=== PATIENT | male | born 1960 | race Caucasian/White ===

== ENCOUNTER 2017-08-20 13:13 | Emergency (ER) | payer MEDICARE, MEDICAID ==
--- NOTE | 2017-08-20 13:28 | ER Document Report ---
ED Medical Screen (RME) - General Chief Complaint: Shortness Of Breath Stated Complaint: SHORTNESS OF BREATH Time Seen by Provider: 08/20/17 13:24 Mode of Arrival: Wheelchair Information source: Patient TRAVEL OUTSIDE OF THE [place] 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 - Related Data Allergies/Adverse Reactions: acetaminophen [From Vicodin] Allergy (Verified 08/20/17 13:17) clopidogrel [From Plavix] Allergy (Verified 08/20/17 13:17) coconut Allergy (Verified 08/20/17 13:17) hydrocodone [From Vicodin] Allergy (Verified 08/20/17 13:17) strawberry Allergy (Verified 08/20/17 13:17) Sulfa (Sulfonamide Antibiotics) Allergy (Verified 08/20/17 13:17) Past Medical History Renal/ Medical History: Denies: Hx Peritoneal Dialysis Physical Exam - Vital signs Vitals: Temp Pulse Resp BP Pulse Ox 97.6 F 69 18 127/73 H 97 08/20/17 13:18 08/20/17 13:18 08/20/17 13:18 08/20/17 13:18 08/20/17 13:18 Course - Vital Signs Vital signs: Temp Pulse Resp BP Pulse Ox 97.6 F 69 18 127/73 H 97 08/20/17 13:18 08/20/17 13:18 08/20/17 13:18 08/20/17 13:18 08/20/17 13:18
[2017-08-20 14:12] LABS: HEMATOCRIT 37.9 % (37.9-51.0); HEMOGLOBIN 12.9 g/dL (13.5-17.0); HGB HCT DIFFERENCE 0.8; MEAN CORPUSCULAR HEMOGLOBIN 30.2 pg (27.0-33.4); MEAN CORPUSCULAR HGB CONC 33.9 g/dL (32.0-36.0); MEAN CORPUSCULAR VOLUME 89 fl (80-97); PROTHROMBIN TIME 13.2 SEC (11.4-15.4); RED BLOOD COUNT 4.26 10^6/uL (4.35-5.55); RED CELL DISTRIBUTION WIDTH 15.2 % (11.5-14.0); WHITE BLOOD COUNT 8.3 10^3/uL (4.0-10.5)
[2017-08-20 14:13] LABS: PARTIAL THROMBOPLASTIN TIME 26.9 SEC (23.5-35.8)
[2017-08-20 14:27] LABS: ALANINE AMINOTRANSFERASE 44 U/L (21-72); ALBUMIN 4.4 g/dL (3.5-5.0); ALKALINE PHOSPHATASE 109 U/L (38-126); ANION GAP 14 (5-19); ASPARTATE AMINO TRANSFERASE 24 U/L (17-59); BILIRUBIN,DIRECT 0.4 mg/dL (0.0-0.4); BILIRUBIN,TOTAL 0.4 mg/dL (0.2-1.3); BLOOD UREA NITROGEN 12 mg/dL (7-20); CALCIUM 10.2 mg/dL (8.4-10.2); CARBON DIOXIDE 24 mmol/L (22-30); CHLORIDE 104 mmol/L (98-107); CREATINE KINASE 43 U/L (55-170); CREATININE RESULT 0.74 mg/dL (0.52-1.25); GLUCOSE 97 mg/dL (75-110); POTASSIUM 5.2 mmol/L (3.6-5.0); SODIUM 142.2 mmol/L (137-145); TOTAL PROTEIN 7.5 g/dL (6.3-8.2)
[2017-08-20 14:37] LABS: CREATINE KINASE MB 0.47 ng/mL (<4.55)
[2017-08-20 14:38] LABS: TROPONIN I < 0.012 ng/mL
--- NOTE | 2017-08-20 14:40 | RADIOLOGY REPORT (SQ) ---
EXAM DESCRIPTION: CHEST PA/LAT COMPLETED DATE/TIME: 08/20/2017 2:09 pm REASON FOR STUDY: cp COMPARISON: None. EXAM PARAMETERS: NUMBER OF VIEWS: two views TECHNIQUE: Digital Frontal and Lateral radiographic views of the chest acquired. RADIATION DOSE: NA LIMITATIONS: none FINDINGS: LUNGS AND PLEURA: No opacities, masses or pneumothorax. No pleural effusion. MEDIASTINUM AND HILAR STRUCTURES: No masses or contour abnormalities. HEART AND VASCULAR STRUCTURES: Heart normal size. No evidence for failure. Curvilinear calcificatio n along the right heart border likely the right coronary artery with multiple stents BONES: No acute findings. HARDWARE: None in the chest. OTHER: No other significant finding. IMPRESSION: No acute infiltrates or pleural effusions. Radiodense curvilinear structures along the right heart border likely right coronary stents TECHNICAL DOCUMENTATION: JOB ID: [id number] [employer]- All Rights Reserved
[2017-08-20 14:42] LABS: BAND NEUTROPHILS % (MANUAL) 1 % (3-5); BASOPHILS % (MANUAL) 1 % (0-2); EOSINOPHILS % (MANUAL) 5 % (0-6); LYMPHOCYTES % (MANUAL) 25 % (13-45); TOTAL CELLS COUNTED 100
[2017-08-20 14:43] LABS: POLYCHROMASIA SLIGHT
--- NOTE | 2017-08-20 14:54 | EKG REPORT ---
SEVERITY:- NORMAL ECG - SINUS RHYTHM : Confirmed by: Hai Calhoun MD 20-Aug-2017 14:53:59
--- NOTE | 2017-08-20 15:53 | ER Document Report ---
ED Respiratory Problem - General Chief Complaint: Shortness Of Breath Stated Complaint: SHORTNESS OF BREATH Time Seen by Provider: 08/20/17 13:24 Mode of Arrival: Wheelchair Information source: Patient TRAVEL OUTSIDE OF THE [place] IN LAST 30 DAYS: No - HPI Patient complains to provider of: Short of breath Onset: Yesterday - MORNING, UPON AWAKENING Duration: Intermittent episodes Quality of pain: No pain Severity: Mild Context: Hx COPD. denies: DVT, Malignancy, Recent cardiac event, Recent foreign travel, Recent long distance trvl, Recent immobilization, Recent surgery Short of Breath: Mild Cough: Productive Sputum amount: Small Sputum color: Yellow Sputum consistency: Mucoid Associated symptoms: Cough, Short of breath. denies: Ankle/leg swelling, Chest pain/discomfort, Chills, Fever, Hurts to breathe, Leg/calf/joint pain, Orthopnea Similar symptoms previously: Yes - NOT RECENT Recently seen / treated by doctor: No - Related Data Allergies/Adverse Reactions: acetaminophen [From Vicodin] Allergy (Verified 08/20/17 13:17) clopidogrel [From Plavix] Allergy (Verified 08/20/17 13:17) coconut Allergy (Verified 08/20/17 13:17) hydrocodone [From Vicodin] Allergy (Verified 08/20/17 13:17) strawberry Allergy (Verified 08/20/17 13:17) Sulfa (Sulfonamide Antibiotics) Allergy (Verified 08/20/17 13:17) Past Medical History - General Information source: Patient - Social History Smoking Status: Current Every Day Smoker Cigarette use (# per day): Yes - 1/2 Chew tobacco use (# tins/day): No Frequency of alcohol use: Occasional Drug Abuse: None Lives with: Spouse/Significant other Family History: None Patient has suicidal ideation: No Patient has homicidal ideation: No - Past Medical History Cardiac Medical History: Reports: Hx Coronary Artery Disease, Hx Heart Attack Pulmonary Medical History: Reports: Hx COPD Neurological Medical History: Reports: None Endocrine Medical History: Reports: Hx Diabetes Mellitus Type 2 Renal/ Medical History: Reports: None. Denies: Hx Peritoneal Dialysis Malignancy Medical History: Reports None GI Medical History: Reports: Other - KNOWN GALLBLADDER DISEASE, NEEDS ELECTIVE SURGERY Musculoskeltal Medical History: Reports Hx Arthritis Skin Medical History: Reports None Psychiatric Medical History: Reports: None Past Surgical History: Reports: Hx Appendectomy, Hx Cardiac Catheterization - 11 stents, Hx Coronary Stent - x 11, Hx Orthopedic Surgery - carpal tunnel release right hand, Hx Tonsillectomy - Immunizations Hx Diphtheria, Pertussis, Tetanus Vaccination: No Review of Systems - Review of Systems Constitutional: No symptoms reported EENT: No symptoms reported Cardiovascular: No symptoms reported Respiratory: See HPI Gastrointestinal: No symptoms reported Male Genitourinary: No symptoms reported Musculoskeletal: No symptoms reported Skin: No symptoms reported Neurological/Psychological: No symptoms reported Physical Exam - Vital signs Vitals: Temp Pulse Resp BP Pulse Ox 97.6 F 69 18 127/73 H 97 08/20/17 13:18 08/20/17 13:18 08/20/17 13:18 08/20/17 13:18 08/20/17 13:18 Interpretation: Normal. No: Tachycardic, Hypoxic, Tachypneic - General General appearance: Appears well, Alert In distress: None - HEENT Head: Normocephalic Eyes: Normal. No: Pale conjunctiva Conjunctiva: Normal Ears: Normal Nasal: Normal Mouth/Lips: Normal Mucous membranes: Normal Pharynx: Normal Neck: Normal - Respiratory Respiratory status: No respiratory distress Breath sounds: Normal - Cardiovascular Rhythm: Regular Heart sounds: Normal auscultation Murmur: No - Abdominal Inspection: Obese Bowel sounds: Normal Tenderness: Nontender - Extremities General upper extremity: Normal inspection General lower extremity: Normal inspection. No: Edema - Neurological Neuro grossly intact: Yes Cognition: Normal Orientation: AAOx4 - Psychological Associated symptoms: Normal affect, Normal mood - Skin Skin Temperature: Warm Skin Moisture: Dry Skin Color: Normal Skin Turgor: Elastic Course - Vital Signs Vital signs: Temp Pulse Resp BP Pulse Ox 97.6 F 69 20 121/71 98 08/20/17 13:18 08/20/17 13:18 08/20/17 19:01 08/20/17 19:01 08/20/17 19:01 - Laboratory Result Diagrams: 08/20/17 13:45 08/20/17 13:45 Laboratory results interpreted by me: 08/20/17 08/20/17 13:45 13:45 RBC 4.26 L Hgb 12.9 L RDW 15.2 H Band Neutrophils % 1 L Potassium 5.2 H Creatine Kinase 43 L Discharge - Discharge Clinical Impression: Acute bronchitis Qualifiers: Bronchitis organism: unspecified organism Qualified Code(s): J20.9 - Acute bronchitis, unspecified Condition: Stable Disposition: HOME, SELF-CARE Instructions: Bronchitis ([facility]), Inhaled Bronchodilators ([facility]), Corticosteroid Medication ([facility]), Chronic Obstructive Lung Disease ([facility]) Additional Instructions: REST, DRINK PLENTY OF FLUIDS. STOP SMOKING ! MEDS DIRECTED. (BEGIN PREDNISONE TOMORROW). FOLLOW UP WITH PRIMARY CARE PROVIDER OF YOUR CHOICE. RETURN TO E.R. IF PROBLEMS. Prescriptions: Albuterol Sulfate [Proair HFA] 8.5 gm IH Q4HP PRN #2 [id number] PRN Reason: For Wheezing Doxycycline Monohydrate 100 mg PO BID #20 tablet Prednisone [Deltasone 10 mg Tablet] 10 mg PO ASDIR PRN #21 tablet PRN Reason: Forms: Smoking Cessation Education Referrals: LAKISHA LEÓN MD [ACTIVE STAFF] - Follow up as needed SHANTI HARTMAN MD [ACTIVE STAFF] - Follow up as needed JOHN WALTERS MD [[facility]] - Follow up as needed
--- NOTE | 2017-08-20 18:03 | RADIOLOGY REPORT (SQ) ---
EXAM DESCRIPTION: CTA CHEST COMPLETED DATE/TIME: 08/20/2017 5:42 pm REASON FOR STUDY: DYSPNEA, HYPOTENSION COMPARISON: None. TECHNIQUE: CT scan of the chest performed using helical scanning technique with dynamic intravenous contrast injection. Images reviewed with lung, soft tissue and bone windows. Reconstructed coronal and sagittal MPR images reviewed. Additional 3 dimensional post-processing performed to develop Maximal Intensity Projection images (NM P). All images stored on PACS. All CT scanners at this facility use dose modulation, iterative reconstruction, and/or weight based d osing when appropriate to reduce radiation dose to as low as reasonably achievable (ALARA). [facility]: Dose Right [facility]: CareDose [facility]: Dose Right [facility]: Teradose 4D [facility]: TabbedOut CONTRAST TYPE AND DOSE: contrast/concentration: Isovue 370.00 mg/ml; Total Contrast Delivered: 82.0 ml; Total Saline Delivered: 99.1 ml Contrast bolus optimized for the pulmonary arteries. Not diagnostic for the aorta. RENAL FUNCTION: GFR > 60. RADIATION DOSE: Up-to-date CT equipment and radiation dose reduction techniques were employed. CTDIv ol: 19.8 - 22.6 mGy. DLP: 844 mGy-cm. . LIMITATIONS: None. FINDINGS: LUNGS AND PLEURA: No masses, infiltrates, pneumothorax. No pleural effusions, calcificati ons. AORTA AND GREAT VESSELS: No aneurysm. Contrast bolus not optimized for the aorta. HEART: No pericardial effusion. Heavy coronary artery calcifications. PULMONARY ARTERIES: No emboli visualized in the main pulmonary arteries or the segmental branches. HILAR AND MEDIASTINAL STRUCTURES: No identified masses or abnormal nodes. HARDWARE: None in the chest. UPPER ABDOMEN: No significant findings. Limited exam. THYROID AND OTHER SOFT TISSUES: No masses. No adenopathy. BONES: No acute or significant finding. 3D MIPS: Confirm above findings. OTHER: No other significant finding. IMPRESSION: NO PULMONARY EMBOLI. Heavy coronary artery calcifications. COMMENT: Quality ID # [id number]: Final reports with documentation of one or more dose reduction techniques (e.g., Automated exposure control, adjustment of the mA and/or kV according to patient size, use of iterative reconstruction technique) TECHNICAL DOCUMENTATION: JOB ID: [id number] [employer]- All Rights Reserved
[2017-08-20] MEDS ORDERED: PREDNISONE 20 MG TABLET PO ONE (19:34)
[2017-08-20 19:56] VITALS: BP 114/69
== END 2017-08-20 19:50 | disposition home or self-care (01) ==
LOC: ER 13:13
DX: J20.9 Acute bronchitis, unspecified (principal); R07.9 Chest pain, unspecified; E66.9 Obesity, unspecified; J44.9 Chronic obstructive pulmonary disease, unspecified; F17.210 Nicotine dependence, cigarettes, uncomplicated; E11.9 Type 2 diabetes mellitus without complications; I25.10 Atherosclerotic heart disease of native coronary artery without angina pectoris; Z88.6 Allergy status to analgesic agent; Z88.2 Allergy status to sulfonamides; I25.2 Old myocardial infarction
CPT/HCPCS: 93005; 99285; 36415; 82553; 82550; 85025; 85610; 85730; 80053; 84484; 83880; 71020; 71275; 93010; A9270; J7512

== ENCOUNTER 2017-12-12 07:29 | Outpatient (CLI) | payer MEDICARE, MEDICAID ==
[~2017-12-12 07:29] MED LIST: IRON DEXTRAN COMPLEX IV PRN; NORMAL SALINE IV PRN
[2017-12-12] MEDS ORDERED: IRON DEXTRAN COMPLEX 25 MG in SYRINGE, DISPOSABLE, 1 EACH IV PRN (08:00)
[2017-12-12] MEDS ORDERED: FAMOTIDINE INJ/PF 20 MG/2 ML SDV IV PRN (08:00)
[2017-12-12] MEDS ORDERED: NORMAL SALINE 250 ML IV PRN (08:00)
[2017-12-12] MEDS ORDERED: METHYLPREDNISOLONE INJ 125 MG/2 ML SDV IV PRN (08:00)
[2017-12-12] MEDS ORDERED: ACETAMINOPHEN 325 MG TABLET PO PRN (08:00)
[2017-12-12] MEDS ORDERED: DIPHENHYDRAMINE HCL 50 MG/ML VIAL IV PRN (08:00)
[2017-12-12 09:39] VITALS: BP 114/61
== END 2017-12-12 14:23 | disposition home or self-care (01) ==
LOC: II 07:29 → 5TH 07:33 → II 14:23
PROVIDERS: ATTEND Internal Medicine Medical Oncology
PROC: 3E033GC Introduction of Other Therapeutic Substance into Peripheral Vein, Percutaneous Approach (ICD-10-PCS; principal; 2017-12-12)
PROC: 3E0333Z Introduction of Anti-inflammatory into Peripheral Vein, Percutaneous Approach (ICD-10-PCS; 2017-12-12)
DX: E61.1 Iron deficiency (principal); D64.9 Anemia, unspecified
CPT/HCPCS: 96365; 96366; 96374; 96375; J1200; J1750 ×2; J2930; J7030; J3490

== ENCOUNTER 2018-01-14 03:14 | Emergency (ER) | payer MEDICARE, MEDICAID ==
[2018-01-14 03:22] VITALS: BP 112/87
[2018-01-14] MEDS ORDERED: BUPIVACAINE HCL 0.5 % INJ/PF 30 ML SDV INJ ONE (03:37)
--- NOTE | 2018-01-14 03:38 | ER Document Report ---
ED General - General Chief Complaint: Toothache Stated Complaint: MOUTH, FACE PAIN Time Seen by Provider: 01/14/18 03:37 Mode of Arrival: Ambulatory Information source: Patient Notes: 57-year-old male history of extremely poor dentition presents with complaints of dental pain. Patient denies any fevers or chills denies any swelling of his face. Patient notes he has had dental abscesses before. He denies any difficulty swallowing or breathing patient notes symptoms have been worsening over the past 3 days TRAVEL OUTSIDE OF THE [place] IN LAST 30 DAYS: No - HPI Onset: Other - 3 day duration Onset/Duration: Persistent Quality of pain: Achy Severity: Mild Pain Level: 2 Associated symptoms: Other Exacerbated by: Denies Relieved by: Denies Similar symptoms previously: Yes Recently seen / treated by doctor: Yes - Related Data Allergies/Adverse Reactions: acetaminophen [From Vicodin] Allergy (Verified 08/20/17 13:17) clopidogrel [From Plavix] Allergy (Verified 08/20/17 13:17) coconut Allergy (Verified 08/20/17 13:17) hydrocodone [From Vicodin] Allergy (Verified 08/20/17 13:17) strawberry Allergy (Verified 08/20/17 13:17) Sulfa (Sulfonamide Antibiotics) Allergy (Verified 08/20/17 13:17) Past Medical History - Social History Smoking Status: Never Smoker Cigarette use (# per day): No Chew tobacco use (# tins/day): No Smoking Education Provided: No Family History: Reviewed & Not Pertinent - Past Medical History Cardiac Medical History: Reports: Hx Coronary Artery Disease, Hx Heart Attack Pulmonary Medical History: Reports: Hx COPD Endocrine Medical History: Reports: Hx Diabetes Mellitus Type 2 Renal/ Medical History: Denies: Hx Peritoneal Dialysis Musculoskeltal Medical History: Reports Hx Arthritis Past Surgical History: Reports: Hx Appendectomy, Hx Cardiac Catheterization - 11 stents, Hx Coronary Stent - x 11, Hx Orthopedic Surgery - carpal tunnel release right hand, Hx Tonsillectomy - Immunizations Hx Diphtheria, Pertussis, Tetanus Vaccination: No Review of Systems - Review of Systems Notes: REVIEW OF SYSTEMS: CONSTITUTIONAL : Denies fever, chills, or sweats. Denies recent illness. EENT: Admits to dental pain CARDIOVASCULAR: Denies chest pain. Denies palpitations or racing or irregular heart beat. Denies ankle edema. RESPIRATORY: Denies cough, cold, or chest congestion. Denies shortness of breath, difficulty breathing, or wheezing. GASTROINTESTINAL: Denies abdominal pain or distention. Denies nausea, vomiting , or diarrhea. Denies blood in vomitus, stools, or per rectum. Denies black, tarry stools. Denies constipation. GENITOURINARY: Denies difficulty urinating, painful urination, burning, frequency, blood in urine, or discharge. MUSCULOSKELETAL: Denies back or neck pain or stiffness. Denies joint pain or swelling. SKIN: Denies rash, lesions or sores. HEMATOLOGIC : Denies easy bruising or bleeding. LYMPHATIC: Denies swollen, enlarged glands. NEUROLOGICAL: Denies confusion or altered mental status. Denies passing out or loss of consciousness. Denies dizziness or lightheadedness. Denies headache. Denies weakness or paralysis or loss of use of either side. Denies problems with gait or speech. Denies sensory loss, numbness, or tingling. Denies seizures. PSYCHIATRIC: Denies anxiety or stress. Denies depression, suicidal ideation, or homicidal ideation. ALL OTHER SYSTEMS REVIEWED AND NEGATIVE. Dictation was performed using [employer] voice recognition software PHYSICAL EXAMINATION: GENERAL: Well-appearing, well-nourished and in no acute distress. HEAD: Atraumatic, normocephalic. EYES: Pupils equal round extraocular movements intact, conjunctiva are normal. ENT: Extremely poor dentition there is no abscess is no swelling tenderness is noted of decayed teeth #7 and 8 NECK: Normal range of motion LUNGS: No respiratory distress Musculoskeletal: Normal range of motion NEUROLOGICAL: Normal speech, normal gait. PSYCH: Normal mood, normal affect. SKIN: Warm, Dry, normal turgor, no rashes or lesions noted. Physical Exam - Vital signs Vitals: Temp Pulse Resp BP Pulse Ox 97.7 F 72 18 112/87 H 97 01/14/18 03:20 01/14/18 03:20 01/14/18 03:20 01/14/18 03:20 01/14/18 03:20 Course - Re-evaluation Re-evalutation: 01/14/18 04:16 Inferior orbital nerve block performed using Sensorcaine 0.5% with complete pain relief patient will be dispensed home with further lidocaine topical Patient given low cost dentistry and penicillin After performing a Medical Screening Examination, I estimate there is LOW risk for a DEEP SPACE INFECTION (e.g., NIGEL'S ANGINA OR RETROPHARYNGEAL ABSCESS), MENINGITIS, INTRACRANIAL HEMORRHAGE, or AIRWAY COMPROMISE, thus I consider the discharge disposition reasonable. Also, there is no evidence or peritonitis, sepsis, or toxicity. I have reevaluated this patient multiple times and no significant life threatening changes are noted. The patient and I have discussed the diagnosis and risks, and we agree with discharging home with close follow-up with the understanding that symptoms and presentations can change. We also discussed returning to the Emergency Department immediately if new or worsening symptoms occur. We have discussed the symptoms which are most concerning (e.g., changing or worsening pain, trouble swallowing or breathing, neck stiffness or fever) that necessitate immediate return. - Vital Signs Vital signs: Temp Pulse Resp BP Pulse Ox 97.7 F 72 18 112/87 H 97 01/14/18 03:20 01/14/18 03:20 01/14/18 03:20 01/14/18 03:20 01/14/18 03:20 Procedures - Additional Procedures dental nerve block Time performed: 03:20 - Using 10 cc of 0.5% bupivacaine with no epinephrine complete resolution of pain with no complications Discharge - Discharge Clinical Impression: Pain, dental Condition: Stable Disposition: HOME, SELF-CARE Instructions: [facility], Toothache ([facility]) Additional Instructions: Follow up with your physician tomorrow for further care or return to the ED IMMEDIATELY if symptoms worsen or new concerns occur. If you cannot afford to follow up with your primary care physician a list of low cost clinics have been provided at the end of your discharge papers as well. Prescriptions: Penicillin V Potassium [Penicillin Vk 500 mg Tablet] 500 mg PO Q6 #40 tablet
[2018-01-14] MEDS ORDERED: LIDOCAINE 2% JELLY 30 ML TUBE TOP ONE (03:58)
[2018-01-14] MEDS ORDERED: LIDOCAINE 2% JELLY 30 ML TUBE ONE (04:31)
== END 2018-01-14 04:39 | disposition home or self-care (01) ==
LOC: ER 03:14
PROC: 3E0T3BZ Introduction of Anesthetic Agent into Peripheral Nerves and Plexi, Percutaneous Approach (ICD-10-PCS; principal; 2018-01-14)
DX: K08.89 Other specified disorders of teeth and supporting structures (principal); R51 Headache; I25.10 Atherosclerotic heart disease of native coronary artery without angina pectoris; I25.2 Old myocardial infarction; E11.9 Type 2 diabetes mellitus without complications
CPT/HCPCS: 99282; 64400; J3490

== ENCOUNTER 2018-02-28 11:46 | Day surgery (SDC) | payer MEDICARE, MEDICAID ==
[2018-02-21 11:41] LABS: HEMATOCRIT 35.5 % (37.9-51.0); HEMOGLOBIN 11.5 g/dL (13.5-17.0); MEAN CORPUSCULAR HEMOGLOBIN 29.8 pg (27.0-33.4); MEAN CORPUSCULAR HGB CONC 32.3 g/dL (32.0-36.0); MEAN CORPUSCULAR VOLUME 92 fl (80-97); RED BLOOD COUNT 3.85 10^6/uL (4.35-5.55); RED CELL DISTRIBUTION WIDTH 16.7 % (11.5-14.0); WHITE BLOOD COUNT 7.4 10^3/uL (4.0-10.5)
[2018-02-21 12:07] LABS: ALANINE AMINOTRANSFERASE 54 U/L (21-72); ALBUMIN 3.9 g/dL (3.5-5.0); ALKALINE PHOSPHATASE 112 U/L (38-126); AMYLASE 34 U/L (30-110); ANION GAP 14 (5-19); ASPARTATE AMINO TRANSFERASE 27 U/L (17-59); BLOOD UREA NITROGEN 9 mg/dL (7-20); CALCIUM 10.2 mg/dL (8.4-10.2); CARBON DIOXIDE 24 mmol/L (22-30); CHLORIDE 101 mmol/L (98-107); GLUCOSE 189 mg/dL (75-110); POTASSIUM 5.3 mmol/L (3.6-5.0); SODIUM 139.1 mmol/L (137-145); TOTAL PROTEIN 6.4 g/dL (6.3-8.2)
[2018-02-21 12:13] LABS: PLATELET COUNT 573 10^3/uL (150-450)
[2018-02-21 12:14] LABS: BILIRUBIN,TOTAL < 0.1 mg/dL (0.2-1.3)
--- NOTE | 2018-02-21 12:23 | RADIOLOGY REPORT (SQ) ---
EXAM DESCRIPTION: CHEST PA/LATERAL COMPLETED DATE/TIME: 02/21/2018 10:56 am REASON FOR STUDY: PRE OP COMPARISON: 2017. TECHNIQUE: Frontal and lateral radiographic views of the chest acquired. NUMBER OF VIEWS: Two view. LIMITATIONS: None. FINDINGS: LUNGS AND PLEURA: No opacities, masses or pneumothorax. No pleural effusion. MEDIASTINUM AND HILAR STRUCTURES: No masses or contour abnormalities. HEART AND VASCULAR STRUCTURES: Heart normal size. No evidence for failure. BONES: No acute findings. HARDWARE: None in the chest. OTHER: No other significant finding. IMPRESSION: NO SIGNIFICANT RADIOGRAPHIC FINDING IN THE CHEST. TECHNICAL DOCUMENTATION: JOB ID: [id number] [employer]- All Rights Reserved Reading location - IP/workstation name: [email or web address]
--- NOTE | 2018-02-21 22:41 | EKG REPORT ---
SEVERITY:- NORMAL ECG - SINUS RHYTHM : Confirmed by: Yareli Ellington 21-Feb-2018 22:40:23
[~2018-02-28 11:46] MED LIST changes: +CEFAZOLIN 1 GM/D5W RTU 1 GM/50 ML RTUPB IV PRN; +GLYCOPYRROLATE INJ 0.4 MG/2 ML VIAL ONE; -IRON DEXTRAN COMPLEX IV PRN; +LACTATED RINGERS 1000 ML IV PRN; +LIDOCAINE 0.5% INJ-PF (5 MG/ML) 50 ML SDV SUBCUT PRN; +LIDOCAINE 2% INJ-PF (20 MG/ML) 2 ML AMPUL ONE; -NORMAL SALINE IV PRN; +ONDANSETRON HCL INJ/PF 4 MG/2 ML SDV ONE; +SUCCINYLCHOLINE CHLORIDE INJ 200 MG/10 ML VIAL ONE
[2018-02-28] MEDS ORDERED: FENTANYL CITRATE INJ/PF 100 MCG/2 ML AMPUL ONE (12:30)
[2018-02-28] MEDS ORDERED: FENTANYL CITRATE INJ/PF 250 MCG/5 ML AMPULE ONE (12:30)
[2018-02-28] MEDS ORDERED: PROPOFOL INJ 200 MG/20 ML VIAL IV ONE (12:31)
[2018-02-28] MEDS ORDERED: ACETAMINOPHEN 100 ML IV ONE (12:31)
[2018-02-28] MEDS ORDERED: MIDAZOLAM 2 MG/2 ML INJ ONE (12:31)
[2018-02-28] MEDS ORDERED: MORPHINE SULFATE 10 MG/ML INJ ONE (12:31)
[2018-02-28 12:32] LABS: INTERNATIONAL RATION (INR) 0.98; PROTHROMBIN TIME 13.5 SEC (11.4-15.4)
[2018-02-28 12:33] LABS: PARTIAL THROMBOPLASTIN TIME 28.3 SEC (23.5-35.8)
[2018-02-28 12:41] LABS: ANION GAP 11 (5-19); BLOOD UREA NITROGEN 13 mg/dL (7-20); CALCIUM 9.6 mg/dL (8.4-10.2); CARBON DIOXIDE 27 mmol/L (22-30); CHLORIDE 105 mmol/L (98-107); GLUCOSE 134 mg/dL (75-110); POTASSIUM 4.7 mmol/L (3.6-5.0); SODIUM 143.4 mmol/L (137-145)
[2018-02-28] MEDS ORDERED: BUPIVACAINE HCL 0.25 % INJ/PF (2.5 MG/1 ML) 30 ML VIAL ONE (13:01)
[2018-02-28] MEDS ORDERED: ALBUTEROL SULFATE 0.083% NEB 2.5 MG/3 ML AMPUL NEB ONE (13:51)
[2018-02-28] MEDS ORDERED: ONDANSETRON HCL INJ/PF 4 MG/2 ML SDV IV PRN ×2 (15:01→15:37)
[2018-02-28] MEDS ORDERED: MORPHINE SULFATE 10 MG/ML INJ IV PRN (15:01)
[2018-02-28] MEDS ORDERED: PROMETHAZINE HCL INJ 25 MG/1 ML VIAL IV PRN (15:01)
[2018-02-28] MEDS ORDERED: MEPERIDINE HCL/PF INJ 25 MG/1 ML DISP.SYRIN IV PRN (15:01)
[2018-02-28] MEDS ORDERED: DIPHENHYDRAMINE HCL 50 MG/ML VIAL IV PRN (15:01)
[2018-02-28] MEDS ORDERED: FENTANYL CITRATE INJ/PF 100 MCG/2 ML AMPUL IV PRN ×3 (15:01)
[2018-02-28] MEDS ORDERED: KETOROLAC TROMETHAMINE 10 MG TABLET PO PRN (15:36)
--- NOTE | 2018-02-28 15:36 | Discharge Summary ---
Discharge Summary (SDC) - Discharge Final Diagnosis: cholecystitis and umbilical hernia Date of Surgery: 02/28/18 Discharge Date: 02/28/18 Condition: Stable Treatment or Instructions: [facility] [address] [place] [id number] Discharge Instructions: Laparoscopic Surgery 1. General Information: a. DO NOT DRIVE a car or operate dangerous machinery for 3-4 days or while taking narcotic pain pills. b. DO NOT consume alcohol, tranquilizers, sleeping medications or any non- prescribed medications for 24 hours unless approved by your doctor or as long as taking narcotic prescription medications. c. DO NOT make important decisions or sign any important papers for the first 24 hours after surgery. d. When discharged home the same day of surgery have a responsible person with you for the first night. 2. Activity Restrictions: 2 weeks. a. NO heavy lifting, straining abdominal muscles, bending over a lot, yard work, house work, or sports for [address] for 3-4 days . c. It is fine to go for walks, up and down steps, ride in a car. d. Elevate your head when sleeping/resting. 3. Treatment: a. You may shower 24 hours after surgery, no baths or swimming for 2 weeks. Remove band-aids or dressings before shower but leave paper strips (steri-strips ) on the skin to fall off on their own. If still on at postoperative visit they will be removed then. b. Drainage of fluid or blood is not unusual from an incision. If occurs, you can clean with peroxide and cotton ball daily and cover with dry gauze until the wound seals. c. If a lot of bleeding occurs, you can hold pressure with a gauze or cloth over the site for 10 minutes and it will usually stop. If bleeding continues you will need to call for possible evaluation in office or emergency room. 4. Medications: a. __Toradol_ may be taken for pain as needed, one tablet every 6 hours. b. You should resume all normal medications unless a change is specified by your doctors. 5. Diet: Begin with clear liquids and may progress to your normal diet if not nauseated. No high fat, high protein foods the day of surgery. 6. The following may occur after laparoscopic surgery: a. Shoulder or upper back ache from retained gas that should resolve in 1-2 days b. Soreness and bruising at incision sites will resolve with time. c. Scrotal swelling (labia in women) and bruising is often seen after hernia surgery. d. Sore throat e. Fatigue may last days to weeks. f. Difficulty urinating may occur and may need to come into emergency room for urinary catheter placement. 7. Notify Physician If: a. Worsening or pain not improved with pain medication b. Persistent nausea and vomiting c. Fever above 101 d. Persistent bleeding or swelling at operative site e. Unable to urinate and uncomfortable bladder 6-8 hours after surgery 8..Follow Up Care: a. Schedule a follow up appointment with your doctor for 2 weeks. In the event of any postoperative problems or questions or you may call the office during business hours or the On-Call physician evenings and weekends at Replaced By [facility]. [facility] Replaced By [facility] I understand the instructions for my postoperative care as described above and a copy has been given to me. Patient/Significant Other Witness Date Prescriptions: Ketorolac Tromethamine [Toradol 10 mg Tablet] 10 mg PO Q6HP PRN #20 tablet PRN Reason: Referrals: THA BROWN MD [Primary Care Provider] - Discharge Diet: Other (Comments) - avoid fatty/greasy foods Discharge Activity: No Lifting Over 10 Pounds, No Lifting/Push/Pulling, Walk Frequently Report the Following to Your Physician Immediately: Nausea, Vomiting, Increase in Pain, Fever over 101 Degrees, Unusual Bleeding, Redness, Drainage-Foul Smelling
--- NOTE | 2018-02-28 15:47 | Operative Report ---
Operative Report DATE OF SURGERY: 02/28/18 PREOPERATIVE DIAGNOSIS: 1. Symptomatic Chronic cholecystitis. 2. Umbilical hernia POSTOPERATIVE DIAGNOSIS: Same OPERATION: 1. Laparoscopic cholecystectomy. 2. Primary closure of umbilical hernia SURGEON: AUDREY RAMSEY 1[employer] [place] SUPPORT: DAPHNEY MCCAIN ANESTHESIA: GA TISSUE REMOVED OR ALTERED: 1 gallbladder COMPLICATIONS: No ESTIMATED BLOOD LOSS: Scant INTRAOPERATIVE FINDINGS: See below PROCEDURE: After obtaining informed consent, the patient was taken to the operating room. General Anesthesia was induced; the arms were extended, and the abdomen was exposed, and prepped and draped in a sterile fashion. Instrumentation was set up for laparoscopic cholecystectomy. Surgical plan and surgical timeout were conducted. A vertical incision was made above the umbilicus, at the site of the small 1 cm umbilical hernia, and a verres needle was inserted uneventfully into the peritoneal cavity. Pneumoperitoneum was established. The verres needle was removed and a 5 mm trocar was inserted and a 5 mm flexible laparoscope was inserted. Visualization of the peritoneal cavity confirmed safe uneventful entry. Under direct visualization 3 additional 5 mm ports were established, one in the subxiphoid position and second in the subcostal position. There were dense adhesions between the greater omentum, the inferior surface of the gallbladder, and the medial aspect of the right lobe of the gallbladder. These adhesions were taken down using a combination of blunt, electrocautery, and harmonic scalpel dissection. We now had the gallbladder suspended free from surrounding omentum. Visualization of the hepatobiliary anatomy revealed no anatomic variations. A grasper was placed on the fundus of the gallbladder and the gallbladder is elevated over the right surface of the liver; a second grasper was used to grasp the infundibulum of the gallbladder. Because of poor visibility due to patient body habitus, and excessive amount of fatty tissue around the neck of the gallbladder, we elected to take the gallbladder down from the fundus. We reposition the graspers and took the gallbladder down from the fundus uneventfully using hook cautery dissection under excellent visualization. We worked in a circumferential fashion, eventually in the gallbladder suspended by the cystic duct, and a bifurcating cystic artery. Both branches cystic artery were taken sequentially between clips and divided with scissors. We initially placed clips on the cystic duct proximally and distally and partially divided the cystic duct, however once we opened up the cystic duct due to incomplete closure from the clips, we actually evacuated several small pigmented stones. Subsequently had clear bile coming from the cystic duct stump. We completely amputated the gallbladder from the cystic duct, removed the 2 previously placed clips, and brought onto the field a PDS Endoloop which was used to secure the cystic duct stump. The gallbladder was removed from the umbilical port site incision, and then we checked the peritoneal cavity bleeding and there was none. Clips on the cystic duct and cystic artery stumps respectively were in good position. There was no evidence of bile or bleeding. We now closed the umbilical site where the umbilical trocar was placed with a # 1 PDS [id number] suture passed percutaneously using the disposable suture passer. This successfully closed the fascial defect. We did not believe mesh in this setting would be appropriate so was not employed. All ports were removed; At this point we felt the operation was complete. The subcutaneous tissue was then anesthetized with quarter percent Marcaine Sponge and needle counts are correct. All ports removed under direct visualization pneumoperitoneum evacuated, and 5 mm port wounds closed with 3-0 Vicryl suture, benzoin and Steri-Strips. The physician computer lab assistant, Ms. Grubbs, provided assistance during this case by: Assisting and port insertion, retracting tissue, instillation of local anesthesia and closure of skin incisions. The patient was extubated, and taken to the recovery room in stable condition.
[2018-02-28] MEDS: FENTANYL CITRATE INJ/PF 100 MCG/2 ML AMPUL ONE ×2 (16:31→16:36)
[2018-02-28 18:13] VITALS: BP 125/72
== END 2018-02-28 18:13 | disposition home or self-care (01) ==
LOC: OROUT 11:46 → EDSTATUS 14:00 → OROUT 18:13
PROVIDERS: ATTEND Surgery
DX: K82.8 Other specified diseases of gallbladder (principal); K42.9 Umbilical hernia without obstruction or gangrene; J44.9 Chronic obstructive pulmonary disease, unspecified; I20.9 Angina pectoris, unspecified; E11.9 Type 2 diabetes mellitus without complications; F17.210 Nicotine dependence, cigarettes, uncomplicated; G47.33 Obstructive sleep apnea (adult) (pediatric); Z79.01 Long term (current) use of anticoagulants; Z79.02 Long term (current) use of antithrombotics/antiplatelets; I25.2 Old myocardial infarction; Z79.4 Long term (current) use of insulin; Z79.51 Long term (current) use of inhaled steroids; Z85.828 Personal history of other malignant neoplasm of skin
CPT/HCPCS: 93005; 36415 ×2; 82962; 82150; 85027; 85610; 85730; 80076; 80048 ×2; 88304 ×2; 71046; 93010; 47562; 49585; J2250; J0690; J3010 ×2; J0330; J2405; A9270 ×2; J2704; J0131; J3490; 790; J2270

== ENCOUNTER 2018-06-12 15:46 | Emergency (ER) | payer MEDICARE, MEDICAID ==
[2018-06-12 16:07] VITALS: BP 129/62
--- NOTE | 2018-06-12 16:37 | ER Document Report ---
ED Extremity Problem, Lower - General Chief Complaint: Knee Injury Stated Complaint: KNEE PAIN Time Seen by Provider: 06/12/18 16:14 Mode of Arrival: Ambulatory Notes: 57-year-old male presented ED for complaint of pain to his right knee. He states he fell about 4-6 weeks ago and it was painful at that time. He states he has had a swollen knot on the front of his knee since he fell but it did not get painful until the last several days. He is here to have the knee drained. I informed him that I do not drain bursitis as this is a bursa. He asked that I speak with 1 of the doctors to see if they would drain it. TRAVEL OUTSIDE OF THE [place] IN LAST 30 DAYS: No - HPI Patient complains to provider of: Pain, Swelling Location: Knee - Right knee Occurred: Other - To 6 weeks Where: Outdoors Onset/Duration: Gradual Quality of pain: Sharp, Throbbing Severity: Moderate Pain Level: 3 Context: Fell - 6 weeks ago Recent injury: No - 4-6 weeks ago Associated symptoms: Painful ambulation Exacerbated by: Movement, Walking, Other - Kneeling Relieved by: Nothing - Related Data Allergies/Adverse Reactions: acetaminophen [From Vicodin] Allergy (Verified 08/20/17 13:17) clopidogrel [From Plavix] Allergy (Verified 08/20/17 13:17) coconut Allergy (Verified 08/20/17 13:17) hydrocodone [From Vicodin] Allergy (Verified 08/20/17 13:17) strawberry Allergy (Verified 08/20/17 13:17) Sulfa (Sulfonamide Antibiotics) Allergy (Verified 08/20/17 13:17) Past Medical History - General Information source: Patient - Social History Smoking Status: Current Every Day Smoker Cigarette use (# per day): Yes - Pack per day Chew tobacco use (# tins/day): No Smoking Education Provided: Yes - 4 minutes Frequency of alcohol use: Social Drug Abuse: Marijuana Family History: Reviewed & Not Pertinent Patient has suicidal ideation: No Patient has homicidal ideation: No - Past Medical History Cardiac Medical History: Reports: Hx Coronary Artery Disease, Hx Heart Attack - X4, 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, Hx Hypertension Pulmonary Medical History: Reports: Hx Bronchitis, Hx COPD, Hx Pneumonia EENT Medical History: Reports: None Neurological Medical History: Reports: None Endocrine Medical History: Reports: Hx Diabetes Mellitus Type 2 Renal/ Medical History: Reports: None Malignancy Medical History: Reports None GI Medical History: Reports: None Musculoskeletal Medical History: Reports Hx Arthritis Skin Medical History: Reports None Psychiatric Medical History: Reports: None Traumatic Medical History: Reports: None Infectious Medical History: Reports: None Past Surgical History: Reports: Hx Appendectomy, Hx Cardiac Catheterization - 11 stents, Hx Coronary Stent - x 11, Hx Orthopedic Surgery - carpal tunnel release right hand, Hx Tonsillectomy - Immunizations Hx Diphtheria, Pertussis, Tetanus Vaccination: Yes Review of Systems - Review of Systems Constitutional: No symptoms reported EENT: No symptoms reported Cardiovascular: No symptoms reported Respiratory: No symptoms reported Gastrointestinal: No symptoms reported Genitourinary: No symptoms reported Male Genitourinary: No symptoms reported Musculoskeletal: Other - Bursitis right knee Skin: No symptoms reported Hematologic/Lymphatic: No symptoms reported Neurological/Psychological: No symptoms reported -: Yes All other systems reviewed and negative Physical Exam - Vital signs Vitals: Temp Pulse Resp BP Pulse Ox 97.9 F 74 16 129/62 H 97 06/12/18 16:04 06/12/18 16:04 06/12/18 16:04 06/12/18 16:04 06/12/18 16:04 Interpretation: Normal - General General appearance: Appears well, Alert - HEENT Head: Normocephalic, Atraumatic Eyes: Normal Pupils: PERRL - Respiratory Respiratory status: No respiratory distress Chest status: Nontender Breath sounds: Normal Chest palpation: Normal - Cardiovascular Rhythm: Regular Heart sounds: Normal auscultation Murmur: No - Abdominal Inspection: Normal Distension: No distension Bowel sounds: Normal Tenderness: Nontender Organomegaly: No organomegaly - Back Back: Normal, Nontender - Extremities General upper extremity: Normal inspection, Nontender, Normal color, Normal ROM , Normal temperature General lower extremity: Normal color, Normal ROM, Normal temperature, Normal weight bearing. No: Ben's sign Knee: Tender, Pain with ROM, Patellar tendon intact, Other - Infra patella bursitis, no redness, mild tenderness, no signs of inflammation or infection. No: Abrasion, Deformity, Dislocation, Drawer's test instability, Ecchymosis, Instability, Joint effusion, Laceration, Laxity with valgus stress, Laxity with varus stress, Popliteal fossa tender, Tender joint line, Unable to bear weight Ankle: Normal Foot: Normal - Neurological Neuro grossly intact: Yes Cognition: Normal Orientation: AAOx4 Amor Coma Scale Eye Opening: Spontaneous Amor Coma Scale Verbal: Oriented Amor Coma Scale Motor: Obeys Commands [place] Coma Scale Total: 15 Speech: Normal Motor strength normal: LUE, RUE, LLE, RLE Sensory: Normal - Psychological Associated symptoms: Normal affect, Normal mood - Skin Skin Temperature: Warm Skin Moisture: Dry Skin Color: Normal Course - Re-evaluation Re-evalutation: 06/12/18 16:[address] Flanagan who came and examined the patient. He recommended ice packs and warm packs to the area and not to drain the bursitis. He discussed this at length with the patient. Patient agreed that he will go home try ice packs and warm packs and follow-up with orthopedics. Patient was discharged home with instructions. - Vital Signs Vital signs: Temp Pulse Resp BP Pulse Ox 97.9 F 74 16 129/62 H 97 06/12/18 16:04 06/12/18 16:04 06/12/18 16:04 06/12/18 16:04 06/12/18 16:04 Discharge - Discharge Clinical Impression: Infrapatellar bursitis of right knee Condition: Stable Disposition: HOME, SELF-CARE Additional Instructions: Bursitis You have been diagnosed as having bursitis. Bursitis is an inflammation of a fluid pouch (bursa) found near joints. This is usually due to repeated minor irritation, or pressure directly on the bursa. On occasion, the bursitis can be due to infection (your doctor has checked for this). Sometimes the doctor decides to remove the fluid from the bursa with a needle. This may be to examine the fluid for infection or to ease the pressure caused by the fluid. The usual treatment is rest, local warmth, (or cold if the bursitis is caused by an acute injury), and antiinflammatory medication. Occasionally, an injection of cortisone is necessary. You should call the doctor for re-examination if the pain increases significantly, or if the area becomes severely swollen and red, or fever develops. Warm Packs After approximately two days, apply gentle heat (such as a heating pad or hot water bottle) for about 20 to 30 minutes about every two hours -- at least four times daily. Warmth and elevation will help you make a more rapid recovery , and will ease the pain considerably. Do not use HOT heat, and never apply heat for longer than 30 minutes. The continuous heat can invisibly damage skin and muscles -- even when no burn is seen on the surface. Damaged muscles can make you MORE sore. Ice Packs Apply ice packs frequently against the painful area. Many different schedules are recommended, such as "20 minutes on, 20 minutes off" or "one hour ice, two hours rest." If you need to work, you may need to go longer between ice treatments. You should plan to have the area ice packed AT LEAST one fourth of the time. The ice should be applied over the wrap, tape, or splint, or over a layer of cloth -- not directly against the skin. Some ice bags have a built-in cloth and can be put directly on the skin. FOLLOW-UP CARE: If you have been referred to a physician for follow-up care, call the physician s office for an appointment as you were instructed or within the next two days. If you experience worsening or a significant change in your symptoms, notify the physician immediately or return to the Emergency Department at any time for re-evaluation. Forms: Elevated Blood Pressure Referrals: THA BROWN MD [Primary Care Provider] - Follow up as needed [facility] [Provider Group] - Follow up as needed
== END 2018-06-12 16:58 | disposition home or self-care (01) ==
LOC: ER 15:46
DX: M70.51 Other bursitis of knee, right knee (principal); M25.561 Pain in right knee; W19.XXXA Unspecified fall, initial encounter; F17.210 Nicotine dependence, cigarettes, uncomplicated; I25.10 Atherosclerotic heart disease of native coronary artery without angina pectoris; I10 Essential (primary) hypertension; J44.9 Chronic obstructive pulmonary disease, unspecified; E11.9 Type 2 diabetes mellitus without complications
CPT/HCPCS: 99283; 99406

== ENCOUNTER → 2018-07-05 | Outpatient (CLI) | payer MEDICAID, MEDICARE ==
--- NOTE | 2018-07-05 09:12 | RADIOLOGY REPORT (SQ) ---
EXAM DESCRIPTION: MRI RT LOWER JOINT WITHOUT COMPLETED DATE/TIME: 07/05/2018 8:17 am REASON FOR STUDY: EFFUSION, RIGHT KNEE (M25.461) M25.461 EFFUSION, RIGHT KNEE COMPARISON: None. TECHNIQUE: Rightknee images acquired and stored on PACS. Multiplanar images include fat sensitive s equences as T1, water sensitive sequences as FST2 or STIR, cartilage sensitive sequences as FSPD, and gradient echo sequences. LIMITATIONS: None. FINDINGS: JOINT AND BURSAE: Just ventral to the anterior tibial tubercle, a chronically inflamed thi ck-walled bursa is present measuring 5 cm craniocaudad by 4 cm transverse by 2 cm AP. This is best shown on axial image 22 and sagittal image 11. No significant knee joint effusion or Chen's cyst. BONE CORTEX AND MARROW: No alteration of signal to suggest marrow replacement. No worrisome bone lesi ons. No occult fracture. ACL: Chronic tear PCL: Intact. MCL: Intact. No periligamentous edema or fluid. LCL: Intact. No periligamentous edema or fluid. MEDIAL MENISCUS: No tears. No abnormal signal. LATERAL MENISCUS: No tears. No abnormal signal. MEDIAL COMPARTMENT: Moderate chondromalacia. No bone bruises or reactive marrow edema. No osteophytes . LATERAL COMPARTMENT: Moderate chondromalacia. No bone bruises or reactive marrow edema. No osteophyte s. PATELLA: Moderate chondromalacia medial patellar facet. No subchondral cysts. Medial and lateral reti nacula intact. EXTENSOR MECHANISM: Patellar tendon is intact. Minimal tendinopathy along the lateral edge of the qu adriceps attachment to the patella on axial images 2-5 SOFT TISSUES: Adjacent muscles and subcutaneous tissues normal. Normal flow void in popliteal artery and vein. OTHER: No other significant finding. IMPRESSION: Enlarged fluid filled bursa ventral to the anterior tibial tubercle. Chronic ACL tear Mild quadriceps tendinopathy TECHNICAL DOCUMENTATION: JOB ID: [id number] [employer]- All Rights Reserved Reading location - IP/workstation name: [email or web address]
== END ==
LOC: RAD 07:03
PROVIDERS: ATTEND Family Medicine Geriatric Medicine
DX: M25.461 Effusion, right knee (principal)

== ENCOUNTER 2019-04-30 10:38 | Emergency (ER) | payer MEDICARE, MEDICAID ==
[2019-04-30 10:45] VITALS: BP 105/58
--- NOTE | 2019-04-30 11:33 | ER Document Report ---
ED Respiratory Problem - General Chief Complaint: Cough Stated Complaint: COUGH Time Seen by Provider: 04/30/19 11:06 Primary Care Provider: THA BROWN MD [Primary Care Provider] - Follow up as needed Mode of Arrival: Ambulatory Information source: Patient Notes: 8-year-old male presented to ED for cough and cold symptoms. He denies any fevers. He states he may have bronchitis again. He states he is not taking any medications for his symptoms. He has been sick since Monday. He is alert oriented respirations regular and unlabored speaking in full sentences. He has not had any fevers he is having postnasal drip and coughing up some sputum. Patient is alert oriented respirations regular and unlabored lungs clear to auscultation walks with a even steady gait. Patient has a history of multiple MIs, multiple stents, COPD, and continues to smoke between a half to a pack a day. TRAVEL OUTSIDE OF THE [place] IN LAST 30 DAYS: No - HPI Patient complains to provider of: COPD, Cough Onset: Other Duration: Intermittent episodes - Since Monday Initiating Event: URI Quality of pain: Achy Severity: Moderate Pain Level: 3 Context: Hx COPD, Smoker Short of Breath: Mild Sputum amount: Small Sputum color: Yellow Sputum consistency: Thick Associated symptoms: Congestion, Cough, PND, Runny nose, Sinus pain/pressure Similar symptoms previously: Yes Recently seen / treated by doctor: Yes - Related Data Allergies/Adverse Reactions: acetaminophen [From Vicodin] Allergy (Verified 04/30/19 10:39) clopidogrel [From Plavix] Allergy (Verified 04/30/19 10:39) coconut Allergy (Verified 04/30/19 10:39) hydrocodone [From Vicodin] Allergy (Verified 04/30/19 10:39) strawberry Allergy (Verified 04/30/19 10:39) Sulfa (Sulfonamide Antibiotics) Allergy (Verified 04/30/19 10:39) Past Medical History - General Information source: Patient - Social History Smoking Status: Current Every Day Smoker Cigarette use (# per day): Yes - Between a half to a pack a day Smoking Education Provided: Yes - 4 minutes Frequency of alcohol use: Social Drug Abuse: Marijuana Lives with: Family Family History: Reviewed & Not Pertinent - Past Medical History Cardiac Medical History: Reports: Hx Coronary Artery Disease, Hx Heart Attack - X4, 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, Hx Hypertension Pulmonary Medical History: Reports: Hx Bronchitis, Hx COPD, Hx Pneumonia EENT Medical History: Reports: None Neurological Medical History: Reports: None Endocrine Medical History: Reports: Hx Diabetes Mellitus Type 2 Renal/ Medical History: Reports: None Malignancy Medical History: Reports None GI Medical History: Reports: None Musculoskeletal Medical History: Reports Hx Arthritis Skin Medical History: Reports None Psychiatric Medical History: Reports: None Traumatic Medical History: Reports: None Infectious Medical History: Reports: None Past Surgical History: Reports: Hx Appendectomy, Hx Cardiac Catheterization - 11 stents, Hx Coronary Stent - x 11, Hx Orthopedic Surgery - carpal tunnel release right hand, Hx Tonsillectomy - Immunizations Hx Diphtheria, Pertussis, Tetanus Vaccination: Yes - 2017 Review of Systems - Review of Systems Constitutional: Recent illness EENT: Ear pain - Pressure in the left ear, Nose discharge, Sinus pressure, Sinus discharge Cardiovascular: No symptoms reported Respiratory: Cough, Hurts to breathe, Sputum - Yellow-green Genitourinary: No symptoms reported Male Genitourinary: No symptoms reported Musculoskeletal: No symptoms reported Skin: No symptoms reported Hematologic/Lymphatic: No symptoms reported Neurological/Psychological: No symptoms reported -: Yes All other systems reviewed and negative Physical Exam - Vital signs Vitals: Temp Pulse Resp BP Pulse Ox 98.2 F 63 18 105/58 L 97 04/30/19 10:44 04/30/19 10:44 04/30/19 10:44 04/30/19 10:44 04/30/19 10:44 Interpretation: Normal - General General appearance: Appears well, Alert - HEENT Head: Normocephalic, Atraumatic Eyes: Normal Pupils: PERRL Ears: Normal External canal: Normal Tympanic membrane: Normal Sinus: Normal Nasal: Purulent discharge, Swelling Mouth/Lips: Normal Mucous membranes: Normal Pharynx: Post nasal drainage. No: Exudate, Peritonsillar abscess, Retropharyngeal abscess Neck: Normal - Respiratory Respiratory status: No respiratory distress. No: Respiratory distress Chest status: Nontender. No: Tender, Chest mass, Pain with cough, Pain with deep breathing Breath sounds: Normal, Productive cough. No: Decreased air movement, Nonproductive cough, Rales, Rhonchi, Stridor, Wheezing, Other Chest palpation: Normal - Cardiovascular Rhythm: Regular Heart sounds: Normal auscultation Murmur: No - Abdominal Inspection: Normal Distension: No distension Bowel sounds: Normal Tenderness: Nontender Organomegaly: No organomegaly - Back Back: Normal, Nontender - Extremities General upper extremity: Normal inspection, Nontender, Normal color, Normal ROM, Normal temperature General lower extremity: Normal inspection, Nontender, Normal color, Normal ROM, Normal temperature, Normal weight bearing. No: Ben's sign - Neurological Neuro grossly intact: Yes Cognition: Normal Orientation: AAOx4 [place] Coma Scale Eye Opening: Spontaneous Amor Coma Scale Verbal: Oriented [place] Coma Scale Motor: Obeys Commands Amor Coma Scale Total: 15 Speech: Normal Motor strength normal: LUE, RUE, LLE, RLE Sensory: Normal - Psychological Associated symptoms: Normal affect, Normal mood - Skin Skin Temperature: Warm Skin Moisture: Dry Skin Color: Normal Course - Re-evaluation Re-evalutation: 04/30/19 11:34 After performing a Medical Screening Examination, I estimate there is LOW risk for ACUTE CORONARY SYNDROME, RESPIRATORY FAILURE, SEPSIS OR MENINGITIS, thus I consider the discharge disposition reasonable. I have reevaluated this patient multiple times and no significant life threatening changes are noted. The patient and I have discussed the diagnosis and risks, and we agree with discharging home with close follow-up. We also discussed returning to the [facility] immediately if new or worsening symptoms occur. We have discussed the symptoms which are most concerning (e.g., changing or worsening pain, trouble swallowing or breathing, neck stiffness, fever) that necessitate immediate return. - Vital Signs Vital signs: Temp Pulse Resp BP Pulse Ox 98.2 F 63 18 105/58 L 97 04/30/19 10:44 04/30/19 10:44 04/30/19 10:44 04/30/19 10:44 04/30/19 10:44 Discharge - Discharge Clinical Impression: Viral URI Condition: Stable Disposition: HOME, SELF-CARE Additional Instructions: UPPER RESPIRATORY ILLNESS: You have a viral infection of the respiratory passages -- a "cold." This common infection causes nasal congestion, drainage, and often sore throat and cough. It is highly contagious. The disease usually lasts about 10 to 14 days. There is no "cure" for the viral infection -- it must run its course. If there is a complication, such as bacterial infection in the nose, sinuses, middle ear, or bronchial tubes, antibiotics may be required. The antibiotics won't affect the virus. Drink plenty of fluids. A humidifier may help. An expectorant medication or decongestant may make you more comfortable. Use acetaminophen or ibuprofen for fever or aches. See the doctor if fever persists over two days, if there is any significant worsening of your symptoms, or if you simply fail to improve as expected. Please use Coricidin HB for your cough cold congestion symptoms. This is safe with your blood pressure and cardiac history. You can also use Flonase nasal spray this will help to decrease the secretions in your nose. Use salt and soda solution gargles to remove the secretions from the back of your throat and help with your cough. You could also use her septic spray for the discomfort to the back your throat. Salt and soda solution 1 quart of water 1 tablespoon of salt 1 teaspoon of baking soda Mixed 3 ingredients together and boil for 1 minute Placed in a covered quart jar Use 1/2 ounce of cold solution to gargle 3 times a day USE OF ACETAMINOPHEN (Tylenol): Acetaminophen may be taken for pain relief or fever control. It's much safer than aspirin, offering a wider range of "safe" dosages. It is safe during . Some brand names are Tylenol, Panadol, Datril, Anacin 3, Tempra, and Liquiprin. Acetaminophen can be repeated every four hours. The following are maximum recommended dosages: >89 pounds or adults 650 mg to 900 mg Acetaminophen can be repeated every four hours. Maximum dose not to exceed 4000 mg a day. SMOKING: If you smoke, you should stop smoking. The tar and chemicals in cigarette smoke are harmful. Smoking has been shown to cause: emphysema chronic bronchitis lung cancer mouth and throat cancer stomach and pancreas cancer premature aging defects In addition, smoking increases ear and lung infections in children of smokers. FOLLOW-UP CARE: If you have been referred to a physician for follow-up care, call the physicians office for an appointment as you were instructed or within the next two days. If you experience worsening or a significant change in your symptoms, notify the physician immediately or return to the Emergency Department at any time for re-evaluation. Forms: Smoking Cessation Education Referrals: THA BROWN MD [Primary Care Provider] - Follow up as needed
== END 2019-04-30 11:43 | disposition home or self-care (01) ==
LOC: ER 10:38
DX: J06.9 Acute upper respiratory infection, unspecified (principal); B97.89 Other viral agents as the cause of diseases classified elsewhere; J44.9 Chronic obstructive pulmonary disease, unspecified; R05 Cough; R09.82 Postnasal drip; J34.89 Other specified disorders of nose and nasal sinuses; I25.10 Atherosclerotic heart disease of native coronary artery without angina pectoris; I10 Essential (primary) hypertension; R07.1 Chest pain on breathing; E11.9 Type 2 diabetes mellitus without complications; F12.10 Cannabis abuse, uncomplicated; F17.210 Nicotine dependence, cigarettes, uncomplicated; Z71.6 Tobacco abuse counseling; Z87.01 Personal history of pneumonia (recurrent); Z95.5 Presence of coronary angioplasty implant and graft; Z88.8 Allergy status to other drugs, medicaments and biological substances; Z91.018 Allergy to other foods; Z88.5 Allergy status to narcotic agent; Z88.2 Allergy status to sulfonamides
CPT/HCPCS: 99283

== ENCOUNTER 2019-06-08 14:11 | Observation (INO) | payer MEDICARE, MEDICAID ==
[2019-06-08] MEDS ORDERED: ASPIRIN 81 MG TABLET, CHEWABLE PO ONE (14:51)
--- NOTE | 2019-06-08 14:56 | ER Document Report ---
ED Medical Screen (RME) - General Chief Complaint: Chest Pain Stated Complaint: CHEST PAIN Time Seen by Provider: 06/08/19 14:51 Primary Care Provider: THA BROWN MD [Primary Care Provider] - Follow up as needed Mode of Arrival: Ambulatory Information source: Patient Notes: This 51 [id number] male presents emergency department with reports of left- sided chest pain that radiates down his left arm for the past week. Reports chest pain on and off. Reports some nausea and diaphoresis with this. Reports history of multiple MIs with stent placement. Patient also reports that he is extremely short of breath with any type of exertion. EKG sinus rhythm with some depression in lead II. Reports that usually the EKGs do not show them having any type of heart attack. I have greeted and performed a rapid initial assessment of this patient. A comprehensive ED assessment and evaluation of the patient, analysis of test results and completion of the medical decision making process will be conducted by additional ED providers. Dictation of this chart was performed using voice recognition software; therefore, there may be some unintended grammatical errors. TRAVEL OUTSIDE OF THE [place] IN LAST 30 DAYS: No - Related Data Allergies/Adverse Reactions: acetaminophen [From Vicodin] Allergy (Verified 06/08/19 14:11) clopidogrel [From Plavix] Allergy (Verified 06/08/19 14:11) coconut Allergy (Verified 06/08/19 14:11) hydrocodone [From Vicodin] Allergy (Verified 06/08/19 14:11) strawberry Allergy (Verified 06/08/19 14:11) Sulfa (Sulfonamide Antibiotics) Allergy (Verified 06/08/19 14:11) Past Medical History - Social History Chew tobacco use (# tins/day): No Frequency of alcohol use: None Drug Abuse: None - Past Medical History Cardiac Medical History: Reports: Hx Coronary Artery Disease, Hx Heart Attack - X4, 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, Hx Hypertension Pulmonary Medical History: Reports: Hx Bronchitis, Hx COPD, Hx Pneumonia Endocrine Medical History: Reports: Hx Diabetes Mellitus Type 2 Renal/ Medical History: Denies: Hx Peritoneal Dialysis Musculoskeltal Medical History: Reports Hx Arthritis Past Surgical History: Reports: Hx Appendectomy, Hx Cardiac Catheterization - 11 stents, Hx Coronary Stent - x 11, Hx Orthopedic Surgery - carpal tunnel release right hand, Hx Tonsillectomy - Immunizations Hx Diphtheria, Pertussis, Tetanus Vaccination: Yes - 2018 History of Influenza Vaccine for 08/2017 - 01/2018 Season: Yes Influenza Administration Date for 08/2017 - 01/2018 Season: 10/06/17 Physical Exam - Vital signs Vitals: Temp Pulse Resp BP Pulse Ox 97.9 F 86 16 112/51 L 97 06/08/19 14:15 06/08/19 14:15 06/08/19 14:15 06/08/19 14:15 06/08/19 14:15 Course - Vital Signs Vital signs: Temp Pulse Resp BP Pulse Ox 97.9 F 86 16 112/51 L 97 06/08/19 14:15 06/08/19 14:15 06/08/19 14:15 06/08/19 14:15 06/08/19 14:15 Doctor's Discharge - Discharge Referrals: THA BROWN MD [Primary Care Provider] - Follow up as needed
[2019-06-08 15:48] LABS: ABSOLUTE EOSINOPHILS # (AUTO) 0.1 10^3/uL (0.0-0.6); ABSOLUTE MONOCYTES (AUTO) 0.7 10^3/uL (0.1-1.4); ABSOLUTE NEUT (AUTO) 5.5 10^3/uL (1.7-8.2); BASOPHILS % (AUTO) 0.4 % (0-2); EOSINOPHILS % (AUTO) 1.9 % (0-6); HEMATOCRIT 23.2 % (37.9-51.0); LYMPHOCYTES % (AUTO) 13.4 % (13-45); MEAN CORPUSCULAR HEMOGLOBIN 25.7 pg (27.0-33.4); MEAN CORPUSCULAR HGB CONC 31.8 g/dL (32.0-36.0); MEAN CORPUSCULAR VOLUME 81 fl (80-97); MONOCYTES % (AUTO) 9.3 % (3-13); PLATELET COUNT 468 10^3/uL (150-450); RED BLOOD COUNT 2.88 10^6/uL (4.35-5.55); RED CELL DISTRIBUTION WIDTH 21.5 % (11.5-14.0); TOTAL CELLS COUNTED % (AUTO) 100 %; WHITE BLOOD COUNT 7.3 10^3/uL (4.0-10.5)
[2019-06-08 15:49] LABS: HEMOGLOBIN 7.4 g/dL (13.5-17.0)
[2019-06-08 15:52] LABS: APPEARANCE,URINE SLIGHTLY-CLOUDY; BILIRUBIN,URINE NEGATIVE (NEGATIVE); COLOR,URINE AMBER; GLUCOSE, URINE 150 mg/dL (NEGATIVE); KETONES,URINE TRACE mg/dL (NEGATIVE); LEUKOCYTE ESTERASE,URINE NEGATIVE (NEGATIVE); NITRITE,URINE NEGATIVE (NEGATIVE); PROTEIN,URINE 30 mg/dL (NEGATIVE); URINE SPECIFIC GRAVITY 1.019; UROBILINOGEN,URINE NEGATIVE mg/dL (<2.0)
[2019-06-08 16:04] LABS: ALBUMIN 3.4 g/dL (3.5-5.0); ALKALINE PHOSPHATASE 126 U/L (38-126); ANION GAP 10 (5-19); ASPARTATE AMINO TRANSFERASE 13 U/L (17-59); BILIRUBIN,DIRECT 0.1 mg/dL (0.0-0.4); BILIRUBIN,TOTAL 0.1 mg/dL (0.2-1.3); BLOOD UREA NITROGEN 5 mg/dL (7-20); CARBON DIOXIDE 26 mmol/L (22-30); CHLORIDE 101 mmol/L (98-107); CREATINE KINASE 33 U/L (55-170); GLUCOSE 226 mg/dL (75-110); POTASSIUM 4.1 mmol/L (3.6-5.0); TOTAL PROTEIN 6.1 g/dL (6.3-8.2)
[2019-06-08 16:15] LABS: NT PRO BNP 61 pg/mL (5-900)
[2019-06-08 16:16] LABS: TROPONIN I < 0.012 ng/mL
[2019-06-08] MEDS ORDERED: IPRATROPIUM/ALBUTEROL 0.5-2.5 MG/3 ML AMPUL NEB ONE (16:42)
--- NOTE | 2019-06-08 16:52 | ER Document Report ---
ED General - General Chief Complaint: Chest Pain Stated Complaint: CHEST PAIN Time Seen by Provider: 06/08/19 14:51 Mode of Arrival: Ambulatory Information source: Patient, [facility] Records Notes: 58-year-old male with coronary artery disease, hypertension, type 2 diabetes, COPD, continuous tobacco use presents with left-sided chest pain that started 1 week prior to arrival. Patient describes the pain as intermittent, pressure- like and worse with activity. Pain does not radiate. Patient has also had associated diaphoresis, shortness of breath with exertion. Patient reports an extensive cardiac history with 11 stents. He states the last stent was placed 4 years ago. He does take Brilinta and has been compliant. Patient does not have a liquefaction supervisor at this time. His primary care physician is Dr. Amaral. He denies any recent illness, abdominal pain, nausea, vomiting, back pain. Patient reports having to take his nitroglycerin several times this week which she reports did alleviate the pain. Patient is currently chest pain-free. TRAVEL OUTSIDE OF THE [place] IN LAST 30 DAYS: No - HPI Onset: Other Onset/Duration: Gradual, Intermittent, Gone Quality of pain: Pressure Severity: None Pain Level: Denies Associated symptoms: Chest pain, Nonproductive cough, Shortness of breath. denies: Fever, Leg swelling, Nausea, Vomiting Exacerbated by: Walking Relieved by: Denies Similar symptoms previously: Yes Recently seen / treated by doctor: No - Related Data Allergies/Adverse Reactions: acetaminophen [From Vicodin] Allergy (Verified 06/08/19 14:11) clopidogrel [From Plavix] Allergy (Verified 06/08/19 14:11) coconut Allergy (Verified 06/08/19 14:11) hydrocodone [From Vicodin] Allergy (Verified 06/08/19 14:11) strawberry Allergy (Verified 06/08/19 14:11) Sulfa (Sulfonamide Antibiotics) Allergy (Verified 06/08/19 14:11) Past Medical History - General Information source: Patient - Social History Smoking Status: Current Every Day Smoker Chew tobacco use (# tins/day): No Frequency of alcohol use: None Drug Abuse: None Lives with: Family Family History: Reviewed & Not Pertinent Patient has suicidal ideation: No Patient has homicidal ideation: No - Past Medical History Cardiac Medical History: Reports: Hx Coronary Artery Disease, Hx Heart Attack - X4, 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, Hx Hypertension Pulmonary Medical History: Reports: Hx Bronchitis, Hx COPD, Hx Pneumonia Endocrine Medical History: Reports: Hx Diabetes Mellitus Type 2 Renal/ Medical History: Denies: Hx Peritoneal Dialysis Musculoskeletal Medical History: Reports Hx Arthritis Past Surgical History: Reports: Hx Appendectomy, Hx Cardiac Catheterization - 11 stents, Hx Coronary Stent - x 11, Hx Orthopedic Surgery - carpal tunnel release right hand, Hx Tonsillectomy - Immunizations Hx Diphtheria, Pertussis, Tetanus Vaccination: Yes - 2018 Review of Systems - Review of Systems Constitutional: denies: Recent illness EENT: Eye pain. denies: Difficulty swallowing Cardiovascular: Chest pain, Dyspnea. denies: Palpitations, Edema Respiratory: Cough, Short of breath, Wheezing Gastrointestinal: Nausea. denies: Abdominal pain, Vomiting Genitourinary: denies: Dysuria, Flank pain Male Genitourinary: No symptoms reported Musculoskeletal: denies: Back pain, Leg swelling Skin: denies: Rash Neurological/Psychological: denies: Lost consciousness, Headaches -: Yes All other systems reviewed and negative Physical Exam - Vital signs Vitals: Temp Pulse Resp BP Pulse Ox 97.9 F 86 16 112/51 L 97 06/08/19 14:15 06/08/19 14:15 06/08/19 14:15 06/08/19 14:15 06/08/19 14:15 - Notes Notes: PHYSICAL EXAMINATION: GENERAL: Well-appearing, well-nourished and in no acute distress. HEAD: Atraumatic, normocephalic. EYES: Pupils equal round and reactive to light, extraocular movements intact, sclera anicteric, conjunctiva are normal. ENT: Nares patent, oropharynx clear without exudates. Moist mucous membranes. TMs clear bilaterally NECK: Normal range of motion, supple without lymphadenopathy LUNGS: Breath sounds clear to auscultation bilaterally and equal. Mild expiratory wheezing HEART: Regular rate and rhythm without murmurs ABDOMEN: Soft, nontender, nondistended abdomen. No guarding, no rebound. No masses appreciated. Musculoskeletal: Normal range of motion, no pitting or edema. No cyanosis. NEUROLOGICAL: Cranial nerves grossly intact. Normal speech, normal gait. Normal sensory, motor exams PSYCH: Normal mood, normal affect. SKIN: Warm, Dry, normal turgor, no rashes or lesions noted. Course - Re-evaluation Re-evalutation: 06/08/19 17:04 Laboratory 06/08/19 06/08/19 06/08/19 15:33 15:33 15:33 WBC 7.3 RBC 2.88 L Hgb 7.4 L Hct 23.2 L MCV 81 MCH 25.7 L MCHC 31.8 L RDW 21.5 H Plt Count 468 H Seg Neutrophils % 75.0 Lymphocytes % 13.4 Monocytes % 9.3 Eosinophils % 1.9 Basophils % 0.4 Absolute Neutrophils 5.5 Absolute Lymphocytes 1.0 Absolute Monocytes 0.7 Absolute Eosinophils 0.1 Absolute Basophils 0.0 Sodium 137.3 Potassium 4.1 Chloride 101 Carbon Dioxide 26 Anion Gap 10 BUN 5 L Creatinine 0.60 Est GFR ( Amer) > 60 Est GFR (Non-Af Amer) > 60 Glucose 226 H Calcium 9.0 Total Bilirubin 0.1 L Direct Bilirubin 0.1 Neonat Total Bilirubin Not Reportable Neonat Direct Bilirubin Not Reportable Neonat Indirect Bili Not Reportable AST 13 L ALT 14 Alkaline Phosphatase 126 Creatine Kinase 33 L Troponin I < 0.012 NT-Pro-B Natriuret Pep 61 Total Protein 6.1 L Albumin 3.4 L Lipase 137.2 Urine Color Urine Appearance Urine pH Ur Specific [place] Urine Protein Urine Glucose (UA) Urine Ketones Urine Blood Urine Nitrite Urine Bilirubin Urine Urobilinogen Ur Leukocyte Esterase Urine WBC (Auto) Urine RBC (Auto) Squamous Epi Cells Auto Urine Mucus (Auto) Urine Ascorbic Acid 06/08/19 15:33 WBC RBC Hgb Hct MCV MCH MCHC RDW Plt Count Seg Neutrophils % Lymphocytes % Monocytes % Eosinophils % Basophils % Absolute Neutrophils Absolute Lymphocytes Absolute Monocytes Absolute Eosinophils Absolute Basophils Sodium Potassium Chloride Carbon Dioxide Anion Gap BUN Creatinine Est GFR ( Amer) Est GFR (Non-Af Amer) Glucose Calcium Total Bilirubin Direct Bilirubin Neonat Total Bilirubin Neonat Direct Bilirubin Neonat Indirect Bili AST ALT Alkaline Phosphatase Creatine Kinase Troponin I NT-Pro-B Natriuret Pep Total Protein Albumin Lipase Urine Color L[place]ETA Urine Appearance SLIGHTLY-CLOUDY Urine pH 5.0 Ur Specific [place] 1.019 Urine Protein 30 H Urine Glucose (UA) 150 H Urine Ketones TRACE H Urine Blood NEGATIVE Urine Nitrite NEGATIVE Urine Bilirubin NEGATIVE Urine Urobilinogen NEGATIVE Ur Leukocyte Esterase NEGATIVE Urine WBC (Auto) 3 Urine RBC (Auto) 1 Squamous Epi Cells Auto 2 Urine Mucus (Auto) MOD Urine Ascorbic Acid NEGATIVE 06/08/19 17:11 Temp Pulse Resp BP Pulse Ox 97.9 F 86 16 112/51 L 97 06/08/19 14:15 06/08/19 14:15 06/08/19 14:15 06/08/19 14:15 06/08/19 14:15 58-year-old male with coronary artery disease, type 2 diabetes, hypertension, COPD presents with complaint of left-sided chest pressure that has been ongoing and intermittent for 1 week. Patient reports worsening of pain and shortness of breath with activity. Patient reports that he has taken several nitro over the last few days which has helped his pain. He does currently take Brilinta, metoprolol. He reports his last stent placement was approximately 4 years ago. He does not currently have cardiology care. Vitals are reviewed and within normal limits. Patient is afebrile, normotensive and not hypoxic or tachycardic. He does not appear toxic or dehydrated. He is in no acute distress. Patient was placed on healthcare recruiter and an EKG was obtained which showed the patient to be in normal sinus rhythm. CBC is without leukocytosis but does show a hemoglobin of 7.4. Patient states that this is a chronic issue for him and has required iron transfusions in the past. He states he has been worked up for internal bleeding and they have never been able to find a source. Cardiac enzymes are within normal limits. Because of the patient's history, high risk for ACS he will be admitted for observation. I did speak to Dr. Cabezas liquefaction supervisor on-call who has agreed to consult on the patient. Patient was admitted to telemetry. 06/08/19 21:47 - Vital Signs Vital signs: Temp Pulse Resp BP Pulse Ox 97.9 F 86 15 119/62 99 06/08/19 14:15 06/08/19 14:15 06/08/19 19:01 06/08/19 19:01 06/08/19 19:01 - Laboratory Result Diagrams: 06/08/19 15:33 06/08/19 15:33 Laboratory results interpreted by me: 06/08/19 06/08/19 06/08/19 15:33 15:33 15:33 RBC 2.88 L Hgb 7.4 L Hct 23.2 L MCH 25.7 L MCHC 31.8 L RDW 21.5 H Plt Count 468 H BUN 5 L Glucose 226 H Iron Ferritin Total Bilirubin 0.1 L AST 13 L Creatine Kinase 33 L Total Protein 6.1 L Albumin 3.4 L Vitamin B12 Urine Protein 30 H Urine Glucose (UA) 150 H Urine Ketones TRACE H 06/08/19 15:33 RBC Hgb Hct MCH MCHC RDW Plt Count BUN Glucose Iron < 10.1 L Ferritin 4.03 L Total Bilirubin AST Creatine Kinase Total Protein Albumin Vitamin B12 224.0 L Urine Protein Urine Glucose (UA) Urine Ketones - Diagnostic Test Radiology reviewed: Image reviewed - EKG Interpretation by Me EKG shows normal: Sinus rhythm Rate: Normal Rhythm: NSR When compared to previous EKG there are: No significant change - Repeat EKG obtained at 1646 again shows normal sinus rhythm at a rate of 80. QRS 80. No ST elevation, depression. Discharge - Discharge Clinical Impression: Tobacco abuse Chest pain Qualifiers: Chest pain type: unspecified Qualified Code(s): R07.9 - Chest pain, unspecified COPD (chronic obstructive pulmonary disease) Qualifiers: COPD type: unspecified COPD Qualified Code(s): J44.9 - Chronic obstructive pulmonary disease, unspecified Condition: Good Disposition: ADMITTED INPATIENT Admitting Provider: Leila (Hospitalist) Unit Admitted: Telemetry
[2019-06-08] MEDS ORDERED: ACETAMINOPHEN 325 MG TABLET PO PRN (17:26)
[2019-06-08] MEDS ORDERED: ONDANSETRON HCL INJ/PF 4 MG/2 ML SDV IV PRN (17:26)
[2019-06-08] MEDS ORDERED: TEMAZEPAM 15 MG CAPSULE PO PRN (17:26)
[2019-06-08] MEDS ORDERED: MAG HYDROX/AL HYDROX/SIMETH SUSP 30 ML UDCUP PO PRN (17:26)
[2019-06-08] MEDS ORDERED: NITROGLYCERIN 0.4 MG/TAB 25 TAB/BOTTLE SL PRN (17:26)
[2019-06-08] MEDS ORDERED: NICOTINE 21 MG/24 HR PATCH.TD24 TD ONE (17:43)
--- NOTE | 2019-06-08 17:56 | PDOC H&P ---
History of Present Illness Admission Date/PCP: THA BROWN MD Patient complains of: Left sided chest pain and arm pain History of Present Illness: KRISTIAN QUIÑONEZ is a 58 year old male with past medical history of coronary artery disease, status post multiple stent placements, diabetes mellitus type 2, dyslipidemia, essential hypertension, GERD, COPD, continued tobacco abuse, and obstructive sleep apnea; who presents to [facility]'s emergency room this afternoon with complaints of left-sided chest pain radiating to his left arm intermittently over the course of the day. He states pain has been pretty much they are more than it is not. He denies any associated shortness of breath, diaphoresis, nausea or palpitations associated with the pain. ECG is unremarkable for any acute changes. First troponin is negative. He is referred to the hospitalist for observation admission. Past Medical History Cardiac Medical History: Reports: Coronary Artery Disease, Myocardial Infarction - X4, 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, Hypertension Pulmonary Medical History: Reports: Bronchitis, Chronic Obstructive Pulmonary Disease (COPD), Pneumonia Endocrine Medical History: Reports: Diabetes Mellitus Type 2 Musculoskeltal Medical History: Reports: Arthritis Hematology: Reports: Anemia - RECENT IRON INFUSIONS Past Surgical History Past Surgical History: Reports: Appendectomy, Cardiac Catheterization - 11 stents, Coronary Stent - x 11, Orthopedic Surgery - carpal tunnel release right hand, Tonsillectomy Social History Information Source: Patient Lives with: Family Smoking Status: Current Every Day Smoker Cigarettes Packs Per Day: 20 Number of Years Smokin Last Time Smoked: today Frequency of Alcohol Use: Rare Hx Recreational Drug Use: No - Advance Directive Resuscitation Status: Full Code Surrogate healthcare decision maker:: Family History Family History: CAD, DM, Hypertension Parental Family History Reviewed: Yes Children Family History Reviewed: Yes Sibling(s) Family History Reviewed.: Yes Medication/Allergy Home Medications: Albuterol Sulfate 1.25 mg IH DAILY 02/21/18 Albuterol Sulfate [Ventolin Hfa] 1 - 2 puff IH Q4 PRN 02/21/18 Aspirin [Adult Aspirin] 81 mg PO DAILY 02/21/18 Atenolol 50 mg PO DAILY 02/21/18 Atorvastatin Calcium 80 mg PO DAILY 02/21/18 Duloxetine HCl 60 mg PO BID 02/21/18 Ferrous Sulfate 325 mg PO TID 02/21/18 Gabapentin 900 mg PO QID 02/21/18 Glipizide 100 mg PO BID 02/21/18 Isosorbide Dinitrate 30 mg PO DAILY 02/21/18 Metformin HCl 1,000 mg PO BID 02/21/18 Nitroglycerin 4.9 gm TL ASDIR PRN 02/21/18 Pantoprazole Sodium [Protonix] 40 mg PO DAILY 02/21/18 Ranolazine [Ranexa 500 mg Tab.sr] 500 mg PO Q12 02/21/18 Sucralfate 1 gm PO ASDIR PRN 02/21/18 Ticagrelor [Brilinta 90 mg Tablet] 90 mg PO BID 02/21/18 Tiotropium [place] [Spiriva Handihaler 18 mcg/dose (30 Dose)] 1 tab IH DAILY 02/21/18 Tizanidine HCl 4 mg PO TID 02/21/18 Trazodone HCl 100 mg PO QHS 02/21/18 Varenicline Tartrate [Chantix] 1 each PO DAILY 02/21/18 Ketorolac Tromethamine [Toradol 10 mg Tablet] 10 mg PO Q6HP PRN #20 tablet 02/28/18 Allergies/Adverse Reactions: acetaminophen [From Vicodin] Allergy (Verified 06/08/19 14:11) clopidogrel [From Plavix] Allergy (Verified 06/08/19 14:11) coconut Allergy (Verified 06/08/19 14:11) hydrocodone [From Vicodin] Allergy (Verified 06/08/19 14:11) strawberry Allergy (Verified 06/08/19 14:11) Sulfa (Sulfonamide Antibiotics) Allergy (Verified 06/08/19 14:11) Review of Systems Constitutional: ABSENT: chills, fever(s), headache(s), weight gain, weight loss Eyes: ABSENT: visual disturbances Ears: ABSENT: hearing changes Cardiovascular: PRESENT: chest pain. ABSENT: dyspnea on exertion, edema, or thropnea, palpitations Respiratory: PRESENT: cough Gastrointestinal: ABSENT: abdominal pain, constipation, diarrhea, hematemesis, hematochezia, nausea, vomiting Genitourinary: ABSENT: dysuria, hematuria Musculoskeletal: ABSENT: joint swelling Integumentary: ABSENT: rash, wounds Neurological: ABSENT: abnormal gait, abnormal speech, confusion, dizziness, focal weakness, syncope Psychiatric: ABSENT: anxiety, depression, homidical ideation, suicidal ideation Endocrine: ABSENT: cold intolerance, heat intolerance, polydipsia, polyuria Hematologic/Lymphatic: ABSENT: easy bleeding, easy bruising Physical Exam Vital Signs: Temp Pulse Resp BP Pulse Ox 97.9 F 86 11 L 123/66 99 06/08/19 14:15 06/08/19 14:15 06/08/19 17:01 06/08/19 17:01 06/08/19 17:01 Intake & Output 06/07/19 06/08/19 06/09/19 06:59 06:59 06:59 Weight 94.6 kg General appearance: PRESENT: no acute distress, obese, well-developed, well- nourished Head exam: PRESENT: atraumatic, normocephalic Eye exam: PRESENT: conjunctiva pink, EOMI, PERRLA. ABSENT: scleral icterus Ear exam: PRESENT: normal external ear exam Mouth exam: PRESENT: moist, tongue midline Neck exam: ABSENT: carotid bruit, JVD, lymphadenopathy, thyromegaly Respiratory exam: PRESENT: clear to auscultation vera. ABSENT: rales, rhonchi, wheezes Cardiovascular exam: PRESENT: RRR. ABSENT: diastolic murmur, rubs, systolic murmur Pulses: PRESENT: normal dorsalis pedis pul Vascular exam: PRESENT: normal capillary refill GI/Abdominal exam: PRESENT: normal bowel sounds, soft. ABSENT: distended, guarding, mass, organolmegaly, rebound, tenderness Rectal exam: PRESENT: deferred Extremities exam: PRESENT: full ROM. ABSENT: calf tenderness, clubbing, pedal edema Musculoskeletal exam: PRESENT: ambulatory, full ROM Neurological exam: PRESENT: alert, awake, oriented to person, oriented to place, oriented to time, oriented to situation, CN II-XII grossly intact. ABSENT: motor sensory deficit Psychiatric exam: PRESENT: appropriate affect, normal mood. ABSENT: homicidal ideation, suicidal ideation Skin exam: PRESENT: dry, intact, warm. ABSENT: cyanosis, rash Results Laboratory Results: 06/08/19 15:33 06/08/19 15:33 06/08/19 06/08/19 06/08/19 15:33 15:33 15:33 WBC 7.3 RBC 2.88 L Hgb 7.4 L Hct 23.2 L MCV 81 MCH 25.7 L MCHC 31.8 L RDW 21.5 H Plt Count 468 H Seg Neutrophils % 75.0 Lymphocytes % 13.4 Monocytes % 9.3 Eosinophils % 1.9 Basophils % 0.4 Absolute Neutrophils 5.5 Absolute Lymphocytes 1.0 Absolute Monocytes 0.7 Absolute Eosinophils 0.1 Absolute Basophils 0.0 Sodium 137.3 Potassium 4.1 Chloride 101 Carbon Dioxide 26 Anion Gap 10 BUN 5 L Creatinine 0.60 Est GFR ( Amer) > 60 Est GFR (Non-Af Amer) > 60 Glucose 226 H Calcium 9.0 Total Bilirubin 0.1 L AST 13 L Alkaline Phosphatase 126 Total Protein 6.1 L Albumin 3.4 L Lipase 137.2 Urine Color LORETA Urine Appearance SLIGHTLY-CLOUDY Urine pH 5.0 Ur Specific [place] 1.019 Urine Protein 30 H Urine Glucose (UA) 150 H Urine Ketones TRACE H Urine Blood NEGATIVE Urine Nitrite NEGATIVE Ur Leukocyte Esterase NEGATIVE Urine WBC (Auto) 3 Urine RBC (Auto) 1 06/08/19 06/08/19 06/08/19 15:33 15:33 15:37 Creatine Kinase 33 L CK-MB (CK-2) 0.33 Troponin I < 0.012 NT-Pro-B Natriuret Pep 61 Cancelled Assessment and Plan - Diagnosis (1) Chest pain Qualifiers: Chest pain type: unspecified Qualified Code(s): R07.9 - Chest pain, unspecified Is this a current diagnosis for this admission?: Yes Plan: Will be admitted to [facility] on telemetry. Serial troponins every 6 hours x3. Patient may need nuclear stress test on Monday if symptoms persist. (2) Dyslipidemia Is this a current diagnosis for this admission?: Yes Plan: Continue statin (3) Essential hypertension Is this a current diagnosis for this admission?: Yes Plan: Continue atenolol for now. Will need to hold it for 24 hours if proceed with stress test (4) Tobacco abuse Is this a current diagnosis for this admission?: Yes Plan: Counseled. He states he has been taking Chantix for the last 2 months with hopes to quit. He still past smokes a pack per day. (5) GERD (gastroesophageal reflux disease) Is this a current diagnosis for this admission?: Yes Plan: Continue Protonix (6) DEIRDRE (obstructive sleep apnea) Is this a current diagnosis for this admission?: Yes Plan: CPAP at at bedtime. (7) COPD (chronic obstructive pulmonary disease) Qualifiers: COPD type: unspecified COPD Qualified Code(s): J44.9 - Chronic obstructive pulmonary disease, unspecified Is this a current diagnosis for this admission?: Yes Plan: Continue home inhalers and nebulizer treatments as needed. - Time Time Spent with patient: 35 or more minutes Total Critical Time (Minutes): 35 Smoking Cessation Education: 3 to 10 minutes Medications reviewed and adjusted accordingly: Yes Anticipated discharge: Home Within: within 48 hours - Inpatient Certification Based on my medical assessment, after consideration of the patient's comorbidities, presenting symptoms, or acuity I expect that the services needed warrant INPATIENT care.: Yes I certify that my determination is in accordance with my understanding of Medicare's requirements for reasonable and necessary INPATIENT services [42 CFR 412.3e].: Yes Medical Necessity: Risk of Complication if Not Cared For in Hospital
[2019-06-08] MEDS ORDERED: DEXTROSE 40% GEL 15 GM TUBE PO PRN ×2 (18:22)
[2019-06-08] MEDS ORDERED: DEXTROSE 50%-WATER 25 GM/50 ML DISP.SYRIN IV PRN ×2 (18:22)
[2019-06-08] MEDS ORDERED: GLUCAGON,HUMAN RECOMB 1 MG INJ IM PRN (18:22)
[2019-06-08 19:12] LABS: ABSOLUTE RETICS # 0.049 10^6/uL (0.028-0.122); RETICULOCYTE COUNT (AUTO) 1.69 % (0.66-2.85)
[2019-06-08 19:59] LABS: FERRITIN 4.03 ng/mL (17.9-464.0)
[2019-06-08 20:29] LABS: FOLATE 7.55 ng/mL (>2.76)
[2019-06-08 20:40] LABS: IRON(TIBC) < 10.1 ug/dL (49-181)
[2019-06-08] MEDS ORDERED: NICOTINE 21 MG/24 HR PATCH.TD24 ONE (21:07)
[2019-06-08] MEDS: ATORVASTATIN CALCIUM 80 MG TABLET PO SCH (21:09)
[2019-06-08] MEDS: RANOLAZINE 500 MG TAB.SR.12H PO SCH (21:09)
[2019-06-08] MEDS ORDERED: GABAPENTIN 300 MG CAPSULE PO ONE (22:00)
[2019-06-08] MEDS ORDERED: CYANOCOBALAMIN (VITAMIN B-12) INJ 1000 MCG/1 ML VIAL IM ONE (22:00)
[2019-06-08] MEDS ORDERED: IRON SUCROSE COMPLEX INJ/PF 100 MG/5 ML SDV IV ONE (22:00)
[2019-06-09] MEDS ORDERED: GABAPENTIN 300 MG CAPSULE PO ONE (00:45)
[2019-06-09] MEDS ORDERED: IRON SUCROSE COMPLEX INJ/PF 100 MG/5 ML SDV IV ONE ×3 (00:45→09:00)
--- NOTE | 2019-06-09 01:54 | EKG REPORT ---
SEVERITY:- NORMAL ECG - SINUS RHYTHM : Confirmed by: Iman Mccloud MD 09-Jun-2019 01:54:09
--- NOTE | 2019-06-09 01:54 | EKG REPORT ---
SEVERITY:- OTHERWISE NORMAL ECG - SINUS RHYTHM MINIMAL ST DEPRESSION, ANTEROLATERAL LEADS : Confirmed by: Iman Mccloud MD 09-Jun-2019 01:54:14
[2019-06-09 04:49] LABS: ABSOLUTE RETICS # 0.053 10^6/uL (0.028-0.122)
[2019-06-09 05:08] LABS: IRON(TIBC) 134.9 ug/dL (49-181)
[2019-06-09 05:45] LABS: FERRITIN 4.14 ng/mL (17.9-464.0)
[2019-06-09 06:15] LABS: FOLATE 5.72 ng/mL (>2.76)
[2019-06-09] MEDS: GABAPENTIN 300 MG CAPSULE PO SCH ×4 (07:08→17:06)
[2019-06-09] MEDS: INSULIN LISPRO 100 UNIT/ML 3 ML VIAL SUBCUT SCH (07:52)
[2019-06-09] MEDS ORDERED: NORMAL SALINE 250 ML IV PRN ×2 (08:43)
[2019-06-09] MEDS: FERROUS SULFATE 325 MG TABLET PO SCH ×2 (09:51→17:06)
[2019-06-09] MEDS: RANOLAZINE 500 MG TAB.SR.12H PO SCH ×2 (09:51→22:11)
[2019-06-09] MEDS: ASPIRIN 81 MG TABLET, ENT COATED PO SCH (09:51)
[2019-06-09] MEDS: CYANOCOBALAMIN (VITAMIN B-12) INJ 1000 MCG/1 ML VIAL IM SCH (09:52)
--- NOTE | 2019-06-09 10:15 | PDOC CONSULTATION ---
Consultation Consult Date: 06/09/19 Provider Consulted: SAMANTHA MADDOX Consult reason:: Chest pain History of Present Illness Admission Date/PCP: 06/08/19 18:09 THA BROWN MD History of Present Illness: KRISTIAN QUIÑONEZ is a 58 year old male with past medical history of coronary artery disease status post multiple stents in the past per patient, diabetes mellitus, hypertension, COPD, chronic cigarette smoking, anemia comes with complaints of intermittent episodes of chest pain usually on mild exertion and relieved with nitroglycerin. Patient claims that he has shortness of breath on a chronic basis but his chest pain symptoms have started recently. He admits to smoking under a pack of cigarettes a day and has been doing it for many years. 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 Since then he claims he has had 11 cardiac stents and last stent was 4 years ago. He moved to [place] 2 years ago. H e claims that around 4 years ago he was found to have severe anemia with a hemoglobin around 5 and was admitted in [place] and received multiple transfusions of packed RBCs. Subsequently had a GI work-up there including EGD, colonoscopy and a capsule endoscopy which were all negative per patient. He claims in the last 2 years he has seen a local ginner and [place] and has had an EGD and colonoscopy. He was scheduled for a capsule endoscopy that he did not have. He denies any ninoska blood in stools or black stools at this time. He claims that his father and grand parents had heart disease. He denies alcohol abuse. Past Medical History Cardiac Medical History: Reports: Coronary Artery Disease, Myocardial Infarction - X4, 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, Hypertension Pulmonary Medical History: Reports: Bronchitis, Chronic Obstructive Pulmonary Disease (COPD), Pneumonia Endocrine Medical History: Reports: Diabetes Mellitus Type 1, Diabetes Mellitus Type 2 Musculoskeltal Medical History: Reports: Arthritis Hematology: Reports: Anemia - RECENT IRON INFUSIONS Past Surgical History Past Surgical History: Reports: Appendectomy, Cardiac Catheterization - 11 stents, Coronary Stent - x 11, Orthopedic Surgery - carpal tunnel release right hand, Tonsillectomy Social History Lives with: Family Smoking Status: Current Every Day Smoker Cigarettes Packs Per Day: 1 Number of Years Smokin Last Time Smoked: today Frequency of Alcohol Use: Rare Hx Recreational Drug Use: Yes Drugs: Marijuana - Advance Directive Resuscitation Status: Full Code Family History Family History: Reviewed & Not Pertinent, CAD - Father and grandparents had CAD Parental Family History Reviewed: Yes Children Family History Reviewed: No Sibling(s) Family History Reviewed.: No Medication/Allergy Home Medications: Atenolol 50 mg PO DAILY 02/21/18 Atorvastatin Calcium 80 mg PO DAILY 02/21/18 Duloxetine HCl 60 mg PO Q12 02/21/18 Glipizide 10 mg PO BID 02/21/18 Metformin HCl 1,000 mg PO BIDBS 02/21/18 Pantoprazole Sodium [Protonix] 40 mg PO DAILY 02/21/18 Ranolazine [Ranexa 500 mg Tab.sr] 500 mg PO Q12 02/21/18 Ticagrelor [Brilinta 90 mg Tablet] 90 mg PO BID 02/21/18 Tiotropium [place] [Spiriva Handihaler 18 mcg/dose (30 Dose)] 1 tab IH DAILY 02/21/18 Tizanidine HCl 4 mg PO Q8HP PRN 02/21/18 Trazodone HCl 100 mg PO QHS 02/21/18 Albuterol Sulfate [Albuterol Sulfate Hfa] 2 puff IH Q6HP PRN 06/09/19 Aspirin [Ecotrin 81 mg EC Tablet] 81 mg PO DAILY 06/09/19 Ferrous Sulfate [Feosol 325 mg Tablet] 325 mg PO BID 06/09/19 Fluticasone Propionate [Flonase Nasal [place] 50 Mcg/[place] 16 gm] 1 spray NAREB Q12 06/09/19 Gabapentin [Neurontin 300 mg Capsule] 900 mg PO Q6 06/09/19 Insulin Glargine,Hum.rec.anlog [Lantus Insulin 100 Unit/1 ml 10 ml] 55 unit SUBCUT QHS 06/09/19 Isosorbide Mononitrate [Imdur 30 mg Tablet.er] 30 mg PO DAILY 06/09/19 Varenicline Tartrate [Chantix 1 mg Tablet] 1 mg PO Q12 06/09/19 Allergies/Adverse Reactions: acetaminophen [From Vicodin] Allergy (Verified 06/08/19 14:11) clopidogrel [From Plavix] Allergy (Verified 06/08/19 14:11) coconut Allergy (Verified 06/08/19 14:11) hydrocodone [From Vicodin] Allergy (Verified 06/08/19 14:11) strawberry Allergy (Verified 06/08/19 14:11) Sulfa (Sulfonamide Antibiotics) Allergy (Verified 06/08/19 14:11) Review of Systems Constitutional: PRESENT: weight loss Cardiovascular: PRESENT: chest pain, dyspnea on exertion Physical Exam Vital Signs: Temp Pulse Resp BP Pulse Ox 97.3 F 75 20 114/59 L 98 06/09/19 07:44 06/09/19 07:44 06/09/19 07:44 06/09/19 07:44 06/09/19 07:44 Intake & Output 06/08/19 06/09/19 06/10/19 06:59 06:59 06:59 Output Total 0 Balance 0 Weight 93.6 kg General appearance: PRESENT: no acute distress Head exam: PRESENT: atraumatic, normocephalic Eye exam: PRESENT: conjunctiva pale Mouth exam: PRESENT: neck supple Neck exam: PRESENT: full ROM Respiratory exam: PRESENT: clear to auscultation vera, unlabored Cardiovascular exam: PRESENT: +S1, +S2 Pulses: PRESENT: normal radial pulses, +2 pedal pulses bilateral Vascular exam: PRESENT: normal capillary refill GI/Abdominal exam: PRESENT: normal bowel sounds, soft Musculoskeletal exam: PRESENT: ambulatory, full ROM Neurological exam: PRESENT: alert, awake, oriented to person, oriented to place, oriented to time, oriented to situation, CN II-XII grossly intact Results Laboratory Results: 06/08/19 15:33 06/08/19 15:33 06/08/19 06/08/19 06/08/19 15:33 15:33 15:33 WBC 7.3 RBC 2.88 L Hgb 7.4 L Hct 23.2 L MCV 81 MCH 25.7 L MCHC 31.8 L RDW 21.5 H Plt Count 468 H Seg Neutrophils % 75.0 Lymphocytes % 13.4 Monocytes % 9.3 Eosinophils % 1.9 Basophils % 0.4 Absolute Neutrophils 5.5 Absolute Lymphocytes 1.0 Absolute Monocytes 0.7 Absolute Eosinophils 0.1 Absolute Basophils 0.0 Retic Count (auto) Absolute Retic Sodium 137.3 Potassium 4.1 Chloride 101 Carbon Dioxide 26 Anion Gap 10 BUN 5 L Creatinine 0.60 Est GFR ( Amer) > 60 Est GFR (Non-Af Amer) > 60 Glucose 226 H Calcium 9.0 Iron TIBC % Saturation Ferritin Total Bilirubin 0.1 L AST 13 L Alkaline Phosphatase 126 Total Protein 6.1 L Albumin 3.4 L Lipase 137.2 Vitamin B12 Folate Urine Color [place] Urine Appearance SLIGHTLY-CLOUDY Urine pH 5.0 Ur Specific [place] 1.019 Urine Protein 30 H Urine Glucose (UA) 150 H Urine Ketones TRACE H Urine Blood NEGATIVE Urine Nitrite NEGATIVE Ur Leukocyte Esterase NEGATIVE Urine WBC (Auto) 3 Urine RBC (Auto) 1 06/08/19 06/08/19 06/09/19 15:33 15:33 04:27 WBC RBC Hgb Hct MCV MCH MCHC RDW Plt Count Seg Neutrophils % Lymphocytes % Monocytes % Eosinophils % Basophils % Absolute Neutrophils Absolute Lymphocytes Absolute Monocytes Absolute Eosinophils Absolute Basophils Retic Count (auto) 1.69 1.90 Absolute Retic 0.049 0.053 Sodium Potassium Chloride Carbon Dioxide Anion Gap BUN Creatinine Est GFR ( Amer) Est GFR (Non-Af Amer) Glucose Calcium Iron < 10.1 L TIBC 427 % Saturation UNABLE TO CALCULATE Ferritin 4.03 L Total Bilirubin AST Alkaline Phosphatase Total Protein Albumin Lipase Vitamin B12 224.0 L Folate 7.55 Urine Color Urine Appearance Urine pH Ur Specific [place] Urine Protein Urine Glucose (UA) Urine Ketones Urine Blood Urine Nitrite Ur Leukocyte Esterase Urine WBC (Auto) Urine RBC (Auto) 06/09/19 04:27 WBC RBC Hgb Hct MCV MCH MCHC RDW Plt Count Seg Neutrophils % Lymphocytes % Monocytes % Eosinophils % Basophils % Absolute Neutrophils Absolute Lymphocytes Absolute Monocytes Absolute Eosinophils Absolute Basophils Retic Count (auto) Absolute Retic Sodium Potassium Chloride Carbon Dioxide Anion Gap BUN Creatinine Est GFR ( Amer) Est GFR (Non-Af Amer) Glucose Calcium Iron 134.9 TIBC 406 % Saturation 33 Ferritin 4.14 L Total Bilirubin AST Alkaline Phosphatase Total Protein Albumin Lipase Vitamin B12 237.0 L Folate 5.72 Urine Color Urine Appearance Urine pH Ur Specific [place] Urine Protein Urine Glucose (UA) Urine Ketones Urine Blood Urine Nitrite Ur Leukocyte Esterase Urine WBC (Auto) Urine RBC (Auto) 06/08/19 06/08/19 06/08/19 15:33 15:33 15:37 Creatine Kinase 33 L CK-MB (CK-2) 0.33 Troponin I < 0.012 NT-Pro-B Natriuret Pep 61 Cancelled 06/08/19 06/09/19 06/09/19 21:56 04:27 08:59 Creatine Kinase CK-MB (CK-2) Troponin I < 0.012 < 0.012 < 0.012 NT-Pro-B Natriuret Pep Assessment & Plan - Diagnosis (1) Angina pectoris Is this a current diagnosis for this admission?: Yes (2) Coronary artery disease Qualifiers: Coronary Disease-Associated Artery/Lesion type: [place] artery [place] vs. transplanted heart: [place] heart Associated angina: with stable angina Qualified Code(s): I25.118 - Atherosclerotic heart disease of [place] coronary artery with other forms of angina pectoris Is this a current diagnosis for this admission?: Yes (3) COPD (chronic obstructive pulmonary disease) Qualifiers: COPD type: unspecified COPD Qualified Code(s): J44.9 - Chronic obstructive pulmonary disease, unspecified Is this a current diagnosis for this admission?: Yes (4) Anemia Qualifiers: Iron deficiency anemia type: unspecified iron deficiency (5) Essential hypertension Is this a current diagnosis for this admission?: Yes - Notes Notes: Reviewed labs, EKG and telemetry. 58-year-old male with known history of coronary artery disease status post multiple PCI per patient presents with a nginal symptoms relieved with nitroglycerin. Cardiac biomarkers are negative for acute coronary syndrome. In addition patient has severe anemia which he claims is chronic. Angina could be precipitated by severe anemia. Will recommend getting records for his recent GI work-up to ensure patient does not have any bleeding issues. We will also recommend a transthoracic echocardiogram to evaluate for systolic and diastolic function and look for any wall motion abnormalities. Would hold off on any invasive coronary work-up until his GI work-up is complete recommend to continue patient on aspirin, high intensity statin, long-acting nitrate, Ranexa and low-dose beta-juanita if his blood pressure can tolerate. Reasonable to hold off on Brilinta at this time until GI work-up is reviewed since he is already 4 years out of his last PCI per patient. Will need to get records from [place] regarding his previous coronary interventions and last cardiac cath. We discussed with the patient the need for lifestyle modifications including smoking cessation. Patient does not appear keen to quit smoking. Dr. Mccloud will resume cardiac care of the patient tomorrow morning. - Time Time Spent: 50 to 70 Minutes Smoking Education Provided: Over 3 minutes
[2019-06-09] MEDS ORDERED: TIZANIDINE HCL 4 MG TABLET PO PRN (11:45)
[2019-06-09] MEDS ORDERED: ALBUTEROL SULFATE HFA (90 MCG/PUFF) 200 PUFF/8.5 GM MDI IH PRN (11:45)
--- NOTE | 2019-06-09 11:56 | PDOC PROGRESS REPORT ---
Subjective Reason For Visit: CHEST PAIN Physical Exam Vital Signs: Temp Pulse Resp BP Pulse Ox 98.6 F 79 22 H 120/56 L 97 06/09/19 11:03 06/09/19 11:03 06/09/19 11:03 06/09/19 11:03 06/09/19 11:03 Intake & Output 06/08/19 06/09/19 06/10/19 06:59 06:59 06:59 Intake Total 480 Output Total 0 Balance 0 480 Weight 93.6 kg Results Laboratory Results: 06/08/19 15:33 06/08/19 15:33 06/08/19 06/08/19 06/08/19 15:33 15:33 15:33 WBC 7.3 RBC 2.88 L Hgb 7.4 L Hct 23.2 L MCV 81 MCH 25.7 L MCHC 31.8 L RDW 21.5 H Plt Count 468 H Seg Neutrophils % 75.0 Lymphocytes % 13.4 Monocytes % 9.3 Eosinophils % 1.9 Basophils % 0.4 Absolute Neutrophils 5.5 Absolute Lymphocytes 1.0 Absolute Monocytes 0.7 Absolute Eosinophils 0.1 Absolute Basophils 0.0 Retic Count (auto) Absolute Retic Sodium 137.3 Potassium 4.1 Chloride 101 Carbon Dioxide 26 Anion Gap 10 BUN 5 L Creatinine 0.60 Est GFR ( Amer) > 60 Est GFR (Non-Af Amer) > 60 Glucose 226 H Calcium 9.0 Iron TIBC % Saturation Ferritin Total Bilirubin 0.1 L AST 13 L Alkaline Phosphatase 126 Total Protein 6.1 L Albumin 3.4 L Lipase 137.2 Vitamin B12 Folate Urine Color [place] Urine Appearance SLIGHTLY-CLOUDY Urine pH 5.0 Ur Specific [place] 1.019 Urine Protein 30 H Urine Glucose (UA) 150 H Urine Ketones TRACE H Urine Blood NEGATIVE Urine Nitrite NEGATIVE Ur Leukocyte Esterase NEGATIVE Urine WBC (Auto) 3 Urine RBC (Auto) 1 Blood Type Antibody Screen 06/08/19 06/08/19 06/09/19 15:33 15:33 04:27 WBC RBC Hgb Hct MCV MCH MCHC RDW Plt Count Seg Neutrophils % Lymphocytes % Monocytes % Eosinophils % Basophils % Absolute Neutrophils Absolute Lymphocytes Absolute Monocytes Absolute Eosinophils Absolute Basophils Retic Count (auto) 1.69 1.90 Absolute Retic 0.049 0.053 Sodium Potassium Chloride Carbon Dioxide Anion Gap BUN Creatinine Est GFR ( Amer) Est GFR (Non-Af Amer) Glucose Calcium Iron < 10.1 L TIBC 427 % Saturation UNABLE TO CALCULATE Ferritin 4.03 L Total Bilirubin AST Alkaline Phosphatase Total Protein Albumin Lipase Vitamin B12 224.0 L Folate 7.55 Urine Color Urine Appearance Urine pH Ur Specific [place] Urine Protein Urine Glucose (UA) Urine Ketones Urine Blood Urine Nitrite Ur Leukocyte Esterase Urine WBC (Auto) Urine RBC (Auto) Blood Type Antibody Screen 06/09/19 06/09/19 04:27 08:59 WBC RBC Hgb Hct MCV MCH MCHC RDW Plt Count Seg Neutrophils % Lymphocytes % Monocytes % Eosinophils % Basophils % Absolute Neutrophils Absolute Lymphocytes Absolute Monocytes Absolute Eosinophils Absolute Basophils Retic Count (auto) Absolute Retic Sodium Potassium Chloride Carbon Dioxide Anion Gap BUN Creatinine Est GFR ( Amer) Est GFR (Non-Af Amer) Glucose Calcium Iron 134.9 TIBC 406 % Saturation 33 Ferritin 4.14 L Total Bilirubin AST Alkaline Phosphatase Total Protein Albumin Lipase Vitamin B12 237.0 L Folate 5.72 Urine Color Urine Appearance Urine pH Ur Specific [place] Urine Protein Urine Glucose (UA) Urine Ketones Urine Blood Urine Nitrite Ur Leukocyte Esterase Urine WBC (Auto) Urine RBC (Auto) Blood Type O NEGATIVE Antibody Screen NEGATIVE 06/08/19 06/08/19 06/08/19 15:33 15:33 15:37 Creatine Kinase 33 L CK-MB (CK-2) 0.33 Troponin I < 0.012 NT-Pro-B Natriuret Pep 61 Cancelled 06/08/19 06/09/19 06/09/19 21:56 04:27 08:59 Creatine Kinase CK-MB (CK-2) Troponin I < 0.012 < 0.012 < 0.012 NT-Pro-B Natriuret Pep Assessment and Plan - Diagnosis (1) Iron deficiency anemia Qualifiers: Iron deficiency anemia type: unspecified iron deficiency Qualified Code(s): D50.9 - Iron deficiency anemia, unspecified Is this a current diagnosis for this admission?: Yes Plan: Patient iron level <10.Ferritin is low. Hgb 7.4 it is symptomatic with shortness of breath and chest tightness. To his history of extensive coronary artery disease we will transfuse 2 units of packed red blood cells. We will give him 1 dose of IV Venofer. Vitamin B12 is low as well. He was started on supplements last evening. We will continue these daily while he is here. He will need to follow-up with hematology as an outpatient. He has seen Dr. Espinosa in the past. We have ordered guaiac stools. He has had none. He denies any change in bowels. He states he has had an EGD and colonoscopy when his hemoglobin was 5 previously a couple years ago and nothing was found. Obtain those records if possible. (2) Chest pain Qualifiers: Chest pain type: unspecified Qualified Code(s): R07.9 - Chest pain, unspe cified Is this a current diagnosis for this admission?: Yes Plan: Will be admitted to [facility] on telemetry. Serial troponins every 6 hours all been less than 0.012. He has had no further chest pain. Likely his anemia as a cause of his symptoms. Cardiology has seen the patient as well. We appreciate their recommendations and input. (3) Dyslipidemia Is this a current diagnosis for this admission?: Yes Plan: Continue statin (4) Essential hypertension Is this a current diagnosis for this admission?: Yes Plan: Continue atenolol for now. Will need to hold it for 24 hours if proceed with stress test (5) Tobacco abuse Is this a current diagnosis for this admission?: Yes Plan: Counseled. He states he has been taking Chantix for the last 2 months with hopes to quit. He still past smokes a pack per day. (6) GERD (gastroesophageal reflux disease) Is this a current diagnosis for this admission?: Yes Plan: Continue Protonix (7) DEIRDRE (obstructive sleep apnea) Is this a current diagnosis for this admission?: Yes Plan: CPAP at at bedtime. (8) COPD (chronic obstructive pulmonary disease) Qualifiers: COPD type: unspecified COPD Qualified Code(s): J44.9 - Chronic obstructive pulmonary disease, unspecified Is this a current diagnosis for this admission?: Yes Plan: Continue home inhalers and nebulizer treatments as needed. - Time Time Spent with patient: 25-34 minutes Total Critical Time (Minutes): 25 Smoking Cessation Education: 3 to 10 minutes Medications reviewed and adjusted accordingly: Yes Anticipated discharge: Home Within: within 24 hours - Inpatient Certification Based on my medical assessment, after consideration of the patient's comorbidities, presenting symptoms, or acuity I expect that the services needed warrant INPATIENT care.: Yes I certify that my determination is in accordance with my understanding of Medicare's requirements for reasonable and necessary INPATIENT services [42 CFR 412.3e].: Yes Medical Necessity: Need Close Monitoring Due to Risk of Patient Decompensation
[2019-06-09] MEDS: DULOXETINE HCL 30 MG CAPSULE.DR PO SCH ×2 (13:17→22:11)
[2019-06-09] MEDS: GLIPIZIDE 10 MG TABLET PO SCH (17:06)
[2019-06-09] MEDS: PANTOPRAZOLE SODIUM 40 MG TABLET.DR PO SCH (17:06)
[2019-06-09 17:59] LABS: ABSOLUTE BASOPHILS # (AUTO) 0.1 10^3/uL (0.0-0.2); ABSOLUTE EOSINOPHILS # (AUTO) 0.2 10^3/uL (0.0-0.6); TOTAL CELLS COUNTED % (AUTO) 100 %
[2019-06-09 18:06] LABS: ABSOLUTE LYMPHOCYTES (AUTO) 1.1 10^3/uL (0.5-4.7); ABSOLUTE NEUT (AUTO) 5.1 10^3/uL (1.7-8.2); BASOPHILS % (AUTO) 1.1 % (0-2); EOSINOPHILS % (AUTO) 2.2 % (0-6); LYMPHOCYTES % (AUTO) 15.5 % (13-45); MEAN CORPUSCULAR HEMOGLOBIN 27.1 pg (27.0-33.4); MEAN CORPUSCULAR HGB CONC 33.2 g/dL (32.0-36.0); MEAN CORPUSCULAR VOLUME 82 fl (80-97); MONOCYTES % (AUTO) 13.1 % (3-13); PLATELET COUNT 450 10^3/uL (150-450); RED BLOOD COUNT 3.31 10^6/uL (4.35-5.55); RED CELL DISTRIBUTION WIDTH 20.8 % (11.5-14.0); SEGMENTED NEUTROPHILS % (AUTO) 68.1 % (42-78); WHITE BLOOD COUNT 7.4 10^3/uL (4.0-10.5)
[2019-06-09] MEDS ORDERED: TRAZODONE HCL 50 MG TABLET PO SCH (22:00)
[2019-06-09] MEDS ORDERED: (PENDING PHARMACY ID) (Duloxetine Hcl [Duloxetine Hcl] 60 MG) PO SCH (22:00)
[2019-06-09] MEDS ORDERED: INSULIN GLARGINE,HUM.REC.ANLOG 1,000 UNIT/10 ML VIAL SUBCUT SCH (22:00)
[2019-06-09] MEDS: ATORVASTATIN CALCIUM 80 MG TABLET PO SCH (22:11)
[2019-06-09] MEDS: FLUTICASONE NASAL SPRAY 50 MCG/SPRY 120 SPRAY/16 GM NAREB SCH (22:14)
[2019-06-10] MEDS: GABAPENTIN 300 MG CAPSULE PO SCH ×2 (00:30→05:39)
[2019-06-10] MEDS: PANTOPRAZOLE SODIUM 40 MG TABLET.DR PO SCH (05:40)
[2019-06-10 06:24] LABS: ABSOLUTE BASOPHILS # (AUTO) 0.1 10^3/uL (0.0-0.2); ABSOLUTE EOSINOPHILS # (AUTO) 0.3 10^3/uL (0.0-0.6); ABSOLUTE LYMPHOCYTES (AUTO) 1.1 10^3/uL (0.5-4.7); ABSOLUTE NEUT (AUTO) 6.2 10^3/uL (1.7-8.2); BASOPHILS % (AUTO) 0.9 % (0-2); EOSINOPHILS % (AUTO) 3.5 % (0-6); HEMATOCRIT 26.4 % (37.9-51.0); HEMOGLOBIN 8.8 g/dL (13.5-17.0); LYMPHOCYTES % (AUTO) 13.1 % (13-45); MEAN CORPUSCULAR HEMOGLOBIN 27.3 pg (27.0-33.4); MEAN CORPUSCULAR HGB CONC 33.3 g/dL (32.0-36.0); MEAN CORPUSCULAR VOLUME 82 fl (80-97); MONOCYTES % (AUTO) 11.1 % (3-13); PLATELET COUNT 455 10^3/uL (150-450); RED BLOOD COUNT 3.23 10^6/uL (4.35-5.55); RED CELL DISTRIBUTION WIDTH 21.3 % (11.5-14.0); SEGMENTED NEUTROPHILS % (AUTO) 71.4 % (42-78); TOTAL CELLS COUNTED % (AUTO) 100 %; WHITE BLOOD COUNT 8.7 10^3/uL (4.0-10.5)
[2019-06-10 06:40] LABS: ANION GAP 8 (5-19); BLOOD UREA NITROGEN 8 mg/dL (7-20); CALCIUM 9.3 mg/dL (8.4-10.2); CARBON DIOXIDE 25 mmol/L (22-30); CHLORIDE 106 mmol/L (98-107); CHOLESTEROL 84.27 mg/dL (0-200); GLUCOSE 144 mg/dL (75-110); POTASSIUM 4.7 mmol/L (3.6-5.0); TRIGLYCERIDES 89 mg/dL (<150)
[2019-06-10 06:57] LABS: DIRECT LDL 65 mg/dL (<100)
[2019-06-10] MEDS: INSULIN LISPRO 100 UNIT/ML 3 ML VIAL SUBCUT SCH (08:17)
--- NOTE | 2019-06-10 09:12 | RADIOLOGY REPORT (SQ) ---
EXAM DESCRIPTION: CHEST 2 VIEWS COMPLETED DATE/TIME: 06/10/2019 8:41 am REASON FOR STUDY: cp COMPARISON: 08/20/2017 EXAM PARAMETERS: NUMBER OF VIEWS: two views TECHNIQUE: Digital Frontal and Lateral radiographic views of the chest acquired. RADIATION DOSE: NA LIMITATIONS: none FINDINGS: LUNGS AND PLEURA: No opacities, masses or pneumothorax. No pleural effusion. MEDIASTINUM AND HILAR STRUCTURES: No masses or contour abnormalities. HEART AND VASCULAR STRUCTURES: Heart normal size. No evidence for failure. BONES: No acute findings. HARDWARE: None in the chest. OTHER: No other significant finding. IMPRESSION: NO ACUTE RADIOGRAPHIC FINDING IN THE CHEST. TECHNICAL DOCUMENTATION: JOB ID: [id number] [employer]- All Rights Reserved Reading location - IP/workstation name: [email or web address]
[2019-06-10] MEDS ORDERED: ATENOLOL 50 MG TABLET PO SCH (10:00)
[2019-06-10] MEDS ORDERED: ISOSORBIDE MONONITRATE 30 MG TAB.ER.24H PO SCH (10:00)
[2019-06-10] MEDS ORDERED: TIOTROPIUM BROMIDE DPI 5 CAP/KIT (18 MCG/CAP) IH SCH (10:00)
[2019-06-10] MEDS: RANOLAZINE 500 MG TAB.SR.12H PO SCH (10:20)
[2019-06-10] MEDS: DULOXETINE HCL 30 MG CAPSULE.DR PO SCH (10:21)
[2019-06-10] MEDS: GLIPIZIDE 10 MG TABLET PO SCH (10:22)
[2019-06-10] MEDS: FERROUS SULFATE 325 MG TABLET PO SCH (10:22)
[2019-06-10] MEDS: ASPIRIN 81 MG TABLET, ENT COATED PO SCH (10:24)
[2019-06-10] MEDS: FLUTICASONE NASAL SPRAY 50 MCG/SPRY 120 SPRAY/16 GM NAREB SCH (10:25)
[2019-06-10] MEDS: CYANOCOBALAMIN (VITAMIN B-12) INJ 1000 MCG/1 ML VIAL IM SCH (10:27)
[2019-06-10 11:36] VITALS: BP 123/48
--- NOTE | 2019-06-10 15:06 | PDOC DISCHARGE SUMMARY ---
General - Admit/Disc Date/PCP Admission Date/Primary Care Provider: 06/08/19 18:09 THA BROWN MD Discharge Date: 06/10/19 - Discharge Diagnosis (1) Iron deficiency anemia Is this a current diagnosis for this admission?: Yes (2) Chest pain Is this a current diagnosis for this admission?: Yes (3) Dyslipidemia Is this a current diagnosis for this admission?: Yes (4) Essential hypertension Is this a current diagnosis for this admission?: Yes (5) Tobacco abuse Is this a current diagnosis for this admission?: Yes (6) GERD (gastroesophageal reflux disease) Is this a current diagnosis for this admission?: Yes (7) DEIRDRE (obstructive sleep apnea) Is this a current diagnosis for this admission?: Yes (8) COPD (chronic obstructive pulmonary disease) Is this a current diagnosis for this admission?: Yes - Additional Information Resuscitation Status: Full Code Discharge Diet: Cardiac, Diabetic Discharge Activity: Activity As Tolerated Prescriptions: Cyanocobalamin (Vitamin B-12) [Vitamin B-12] 1,000 mcg PO DAILY #30 capsule Home Medications: Atenolol 50 mg PO DAILY 02/21/18 Atorvastatin Calcium 80 mg PO DAILY 02/21/18 Duloxetine HCl 60 mg PO Q12 02/21/18 Glipizide 10 mg PO BID 02/21/18 Metformin HCl 1,000 mg PO BIDBS 02/21/18 Pantoprazole Sodium [Protonix] 40 mg PO DAILY 02/21/18 Ranolazine [Ranexa 500 mg Tab.sr] 500 mg PO Q12 02/21/18 Tiotropium Jerome [Spiriva Handihaler 18 mcg/dose (30 Dose)] 1 tab IH DAILY 02/21/18 Tizanidine HCl 4 mg PO Q8HP PRN 02/21/18 Trazodone HCl 100 mg PO QHS 02/21/18 Albuterol Sulfate [Albuterol Sulfate Hfa] 2 puff IH Q6HP PRN 06/09/19 Aspirin [Ecotrin 81 mg EC Tablet] 81 mg PO DAILY 06/09/19 Ferrous Sulfate [Feosol 325 mg Tablet] 325 mg PO BID 06/09/19 Fluticasone Propionate [Flonase Nasal [place] 50 Mcg/[place] 16 gm] 1 spray NAREB Q12 06/09/19 Gabapentin [Neurontin 300 mg Capsule] 900 mg PO Q6 06/09/19 Insulin Glargine,Hum.rec.anlog [Lantus Insulin 100 Unit/1 ml 10 ml] 55 unit SUBCUT QHS 06/09/19 Isosorbide Mononitrate [Imdur 30 mg Tablet.er] 30 mg PO DAILY 06/09/19 Varenicline Tartrate [Chantix 1 mg Tablet] 1 mg PO Q12 06/09/19 Acetaminophen [Tylenol 325 mg Tablet] 650 mg PO Q4HP PRN tablet 06/10/19 Cyanocobalamin (Vitamin B-12) [Vitamin B-12] 1,000 mcg PO DAILY #30 capsule 06/10/19 Ferrous Sulfate [Feosol 325 mg Tablet] 325 mg PO BIDPCBS tablet 06/10/19 History of Present Illness Patient complains of: Shortness of breath and chest tightness History of Present Illness: KRISTIAN QUIÑONEZ is a 58 year old male with past medical history of coronary artery disease, status post multiple stent placements, diabetes mellitus type 2, dyslipidemia, essential hypertension, GERD, COPD, continued tobacco abuse, and obstructive sleep apnea; who presents to [facility]'s emergency room this afternoon with complaints of left-sided chest pain radiating to his left arm intermittently over the course of the day. He states pain has been pretty much they are more than it is not. He denies any associated shortness of breath, diaphoresis, nausea or palpitations associated with the pain. ECG is unremarkable for any acute changes. First troponin is negative. He is referred to the hospitalist for observation admission. Hospital Course Hospital Course: Patient was admitted to [facility] on telemetry on the hospitalist service. He was noted to have hemoglobin of 7.4. He states he has chronic iron deficiency anemia. 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 He states his hemoglobin has been as low as 5 before. He did feel the same way at that time. He had serial troponins x3 which were all negative. No further chest pain. Cardiology was consulted. Dr. Henry, saw the patient consult. We did transfuse patient of 2 units of packed red blood cells. Anemia studies were done. Iron levels were less than 10. Vitamin B12 levels were low as well he was started on the thousand micrograms of vitamin B12 daily. Was given a dose of Venofer 200 mg IV x1. He was continued on oral iron therapy as well. He had a colonoscopy and EGD by Dr. Nugent. These results were obtained. His bowels have small bowel follow through capsule endoscopy that he never went back for. Today he was seen by Dr Phillips who felt he could go home and follow up with him in the office. He would like him to follow up with GI as well. He was counseled daily on his need to quit smoking. He verbalized no interest in doing so. He was discharged home in good condition Physical Exam Vital Signs: Temp Pulse Resp BP Pulse Ox 97.5 F 71 24 H 123/48 L 94 06/10/19 11:35 06/10/19 11:35 06/10/19 11:35 06/10/19 11:35 06/10/19 11:35 Intake & Output 06/09/19 06/10/19 06/11/19 06:59 06:59 06:59 Intake Total 2120 Output Total 0 Balance 0 2120 Weight 93.6 kg 92.3 kg General appearance: PRESENT: no acute distress, obese, well-developed, well- nourished Head exam: PRESENT: atraumatic, normocephalic Eye exam: PRESENT: conjunctiva pale, EOMI, PERRLA. ABSENT: scleral icterus Ear exam: PRESENT: normal external ear exam Mouth exam: PRESENT: moist, tongue midline Teeth exam: PRESENT: poor dentation Neck exam: ABSENT: carotid bruit, JVD, lymphadenopathy, thyromegaly Respiratory exam: PRESENT: clear to auscultation vera. ABSENT: rales, rhonchi, wheezes Cardiovascular exam: PRESENT: RRR. ABSENT: diastolic murmur, rubs, systolic murmur Pulses: PRESENT: normal dorsalis pedis pul Vascular exam: PRESENT: normal capillary refill GI/Abdominal exam: PRESENT: normal bowel sounds, soft. ABSENT: distended, guarding, mass, organolmegaly, rebound, tenderness Rectal exam: PRESENT: deferred Extremities exam: PRESENT: full ROM. ABSENT: calf tenderness, clubbing, pedal edema Musculoskeletal exam: PRESENT: ambulatory, full ROM, normal inspection Neurological exam: PRESENT: alert, awake, oriented to person, oriented to place, oriented to time, oriented to situation, CN II-XII grossly intact. ABSENT: motor sensory deficit Psychiatric exam: PRESENT: appropriate affect, normal mood. ABSENT: homicidal ideation, suicidal ideation Skin exam: PRESENT: dry, intact, warm. ABSENT: cyanosis, rash Results Laboratory Results: 06/10/19 05:41 06/10/19 05:41 06/09/19 06/10/19 06/10/19 17:50 05:41 05:41 WBC 7.4 8.7 RBC 3.31 L 3.23 L Hgb 9.0 L 8.8 L Hct 27.0 L 26.4 L MCV 82 82 MCH 27.1 27.3 MCHC 33.2 33.3 RDW 20.8 H 21.3 H Plt Count 450 455 H Seg Neutrophils % 68.1 71.4 Lymphocytes % 15.5 13.1 Monocytes % 13.1 H 11.1 Eosinophils % 2.2 3.5 Basophils % 1.1 0.9 Absolute Neutrophils 5.1 6.2 Absolute Lymphocytes 1.1 1.1 Absolute Monocytes 1.0 1.0 Absolute Eosinophils 0.2 0.3 Absolute Basophils 0.1 0.1 Sodium 139.2 Potassium 4.7 Chloride 106 Carbon Dioxide 25 Anion Gap 8 BUN 8 Creatinine 0.53 Est GFR ( Amer) > 60 Est GFR (Non-Af Amer) > 60 Glucose 144 H Calcium 9.3 Triglycerides 89 Cholesterol 84.27 LDL Cholesterol Direct 65 VLDL Cholesterol 18.0 HDL Cholesterol 24 L 06/08/19 06/08/19 06/08/19 15:33 15:33 15:37 Creatine Kinase 33 L CK-MB (CK-2) 0.33 Troponin I < 0.012 NT-Pro-B Natriuret Pep 61 Cancelled 06/08/19 06/09/19 06/09/19 21:56 04:27 08:59 Creatine Kinase CK-MB (CK-2) Troponin I < 0.012 < 0.012 < 0.012 NT-Pro-B Natriuret Pep Impressions: Chest X-Ray 06/10/19 14:51 IMPRESSION: NO ACUTE RADIOGRAPHIC FINDING IN THE CHEST. Qualifiers - * PATIENT BEING DISCHARGED WITH ANY OF THE FOLLOWING DIAGNOSIS: No Acute Heart Failure - Is this a Heart Failure Patient?: No Plan Discharge Plan: Follow up with Dr Phillips within one month Refer to Dr Lee for GI follow up Time Spent: Less than 30 Minutes
--- NOTE | 2019-06-10 19:28 | Progress Note ---
Provider Note Provider Note: CARDIOLOGY PROGRESS NOTE by Dr. Iman Call on 06/10/2019. SUBJECTIVE: The patient has no further chest pain discomfort. Cardiac enzymes/biomarkers have been negative for non-ST elevation [place]. The patient has no further anginal symptoms. His hemoglobin is up to 9. He has not denies any shortness of breath. The patient's anxious to go home. The patient states he had a GI work-up including small intestinal capsule biopsy. Results of this are still elevated. There is no arrhythmia seen on the monitor. There is no PND orthopnea or leg edema. There is no dizziness syncope or near syncope. There is no TIA CVA symptoms. Work-up shows that the patient has significant iron deficiency anemia. His B12 levels were also low. These have been replaced in the patient's on iron supplementation. PHYSICAL EXAMINATION: The patient is well-built and well-nourished. At present in no acute distress. Selected Entries 06/10/19 06/10/19 08:49 11:35 Temperature 97.5 F Pulse Rate 71 Respiratory 24 H Rate Blood Pressure 123/48 L [Right Upper Arm] O2 Sat by Pulse 94 Oximetry Oxygen Delivery Room Air Method ( includes room air) HEENT is negative. Eyes: There is no conjunctival pallor or scleral icterus. Pupils equal round regular reactive light accommodation. External ocular movements are normal. Neck is supple there is no JVD. Carotids are equal there is no bruit. There is no goiter. There is no accessory muscle respiration use. LUNGS: Trachea central. Lungs show diminished air entry prolonged expiration without any rhonchi rales or wheezing. On percussion there is hyperresonance. On palpation there is no chest wall tenderness. Heart: S1-S2 is heard. There is no S3 gallop. There is no S4 gallop. There is systolic murmur left sternal border and the apex there is no rub. ABDOMEN: Soft. Nontender. There is no paraspinal megaly. Bowel sounds are regular. EXTREMITIES: Femorals well felt. Leg pulses are well felt. There are no femoral bruits. There is no pedal edema. There is no DVT or cellulitis. There is no calf tenderness. TREND INVESTIGATOR: The patient is conscious awake alert oriented times with no focal deficit. PSYCHIATRIC: The patient judgment insight are intact his affect is normal. Labs- Entire Visit 06/08/19 06/08/19 06/08/19 15:33 15:33 15:33 WBC 7.3 RBC 2.88 L Hgb 7.4 L Hct 23.2 L MCV 81 MCH 25.7 L MCHC 31.8 L RDW 21.5 H Plt Count 468 H Seg Neutrophils % 75.0 Lymphocytes % 13.4 Monocytes % 9.3 Eosinophils % 1.9 Basophils % 0.4 Absolute Neutrophils 5.5 Absolute Lymphocytes 1.0 Absolute Monocytes 0.7 Absolute Eosinophils 0.1 Absolute Basophils 0.0 Retic Count (auto) Absolute Retic Sodium 137.3 Potassium 4.1 Chloride 101 Carbon Dioxide 26 Anion Gap 10 BUN 5 L Creatinine 0.60 Est GFR ( Amer) > 60 Est GFR (Non-Af Amer) > 60 Glucose 226 H POC Glucose Calcium 9.0 Iron TIBC % Saturation Ferritin Total Bilirubin 0.1 L Direct Bilirubin 0.1 Neonat Total Bilirubin Not Reportable Neonat Direct Bilirubin Not Reportable Neonat Indirect Bili Not Reportable AST 13 L ALT 14 Alkaline Phosphatase 126 Creatine Kinase 33 L CK-MB (CK-2) Troponin I < 0.012 NT-Pro-B Natriuret Pep 61 Total Protein 6.1 L Albumin 3.4 L Triglycerides Cholesterol LDL Cholesterol Direct VLDL Cholesterol HDL Cholesterol Lipase 137.2 Vitamin B12 Folate Urine Color Urine Appearance Urine pH Ur Specific [place] Urine Protein Urine Glucose (UA) Urine Ketones Urine Blood Urine Nitrite Urine Bilirubin Urine Urobilinogen Ur Leukocyte Esterase Urine WBC (Auto) Urine RBC (Auto) Squamous Epi Cells Auto Urine Mucus (Auto) Urine Ascorbic Acid Blood Type Blood Type Confirm Antibody Screen Crossmatch 06/08/19 06/08/19 06/08/19 15:33 15:33 15:33 WBC RBC Hgb Hct MCV MCH MCHC RDW Plt Count Seg Neutrophils % Lymphocytes % Monocytes % Eosinophils % Basophils % Absolute Neutrophils Absolute Lymphocytes Absolute Monocytes Absolute Eosinophils Absolute Basophils Retic Count (auto) 1.69 Absolute Retic 0.049 Sodium Potassium Chloride Carbon Dioxide Anion Gap BUN Creatinine Est GFR ( Amer) Est GFR (Non-Af Amer) Glucose POC Glucose Calcium Iron < 10.1 L TIBC 427 % Saturation UNABLE TO CALCULATE Ferritin 4.03 L Total Bilirubin Direct Bilirubin Neonat Total Bilirubin Neonat Direct Bilirubin Neonat Indirect Bili AST ALT Alkaline Phosphatase Creatine Kinase CK-MB (CK-2) Troponin I NT-Pro-B Natriuret Pep Total Protein Albumin Triglycerides Cholesterol LDL Cholesterol Direct VLDL Cholesterol HDL Cholesterol Lipase Vitamin B12 224.0 L Folate 7.55 Urine Color LORET[place] Urine Appearance SLIGHTLY-CLOUDY Urine pH 5.0 Ur Specific [place] 1.019 Urine Protein 30 H Urine Glucose (UA) 150 H Urine Ketones TRACE H Urine Blood NEGATIVE Urine Nitrite NEGATIVE Urine Bilirubin NEGATIVE Urine Urobilinogen NEGATIVE Ur Leukocyte Esterase NEGATIVE Urine WBC (Auto) 3 Urine RBC (Auto) 1 Squamous Epi Cells Auto 2 Urine Mucus (Auto) MOD Urine Ascorbic Acid NEGATIVE Blood Type Blood Type Confirm Antibody Screen Crossmatch 06/08/19 06/08/19 06/09/19 15:37 21:56 01:54 WBC RBC Hgb Hct MCV MCH MCHC RDW Plt Count Seg Neutrophils % Lymphocytes % Monocytes % Eosinophils % Basophils % Absolute Neutrophils Absolute Lymphocytes Absolute Monocytes Absolute Eosinophils Absolute Basophils Retic Count (auto) Absolute Retic Sodium Potassium Chloride Carbon Dioxide Anion Gap BUN Creatinine Est GFR ( Amer) Est GFR (Non-Af Amer) Glucose POC Glucose 150 H Calcium Iron TIBC % Saturation Ferritin Total Bilirubin Direct Bilirubin Neonat Total Bilirubin Neonat Direct Bilirubin Neonat Indirect Bili AST ALT Alkaline Phosphatase Creatine Kinase CK-MB (CK-2) 0.33 Troponin I < 0.012 NT-Pro-B Natriuret Pep Cancelled Total Protein Albumin Triglycerides Cholesterol LDL Cholesterol Direct VLDL Cholesterol HDL Cholesterol Lipase Vitamin B12 Folate Urine Color Urine Appearance Urine pH Ur Specific [place] Urine Protein Urine Glucose (UA) Urine Ketones Urine Blood Urine Nitrite Urine Bilirubin Urine Urobilinogen Ur Leukocyte Esterase Urine WBC (Auto) Urine RBC (Auto) Squamous Epi Cells Auto Urine Mucus (Auto) Urine Ascorbic Acid Blood Type Blood Type Confirm Antibody Screen Crossmatch 06/09/19 06/09/19 06/09/19 04:27 04:27 04:27 WBC RBC Hgb Hct MCV MCH MCHC RDW Plt Count Seg Neutrophils % Lymphocytes % Monocytes % Eosinophils % Basophils % Absolute Neutrophils Absolute Lymphocytes Absolute Monocytes Absolute Eosinophils Absolute Basophils Retic Count (auto) 1.90 Absolute Retic 0.053 Sodium Potassium Chloride Carbon Dioxide Anion Gap BUN Creatinine Est GFR ( Amer) Est GFR (Non-Af Amer) Glucose POC Glucose Calcium Iron 134.9 TIBC 406 % Saturation 33 Ferritin 4.14 L Total Bilirubin Direct Bilirubin Neonat Total Bilirubin Neonat Direct Bilirubin Neonat Indirect Bili AST ALT Alkaline Phosphatase Creatine Kinase CK-MB (CK-2) Troponin I < 0.012 NT-Pro-B Natriuret Pep Total Protein Albumin Triglycerides Cholesterol LDL Cholesterol Direct VLDL Cholesterol HDL Cholesterol Lipase Vitamin B12 237.0 L Folate 5.72 Urine Color Urine Appearance Urine pH Ur Specific [place] Urine Protein Urine Glucose (UA) Urine Ketones Urine Blood Urine Nitrite Urine Bilirubin Urine Urobilinogen Ur Leukocyte Esterase Urine WBC (Auto) Urine RBC (Auto) Squamous Epi Cells Auto Urine Mucus (Auto) Urine Ascorbic Acid Blood Type Blood Type Confirm Antibody Screen Crossmatch 06/09/19 06/09/19 06/09/19 07:40 08:59 08:59 WBC RBC Hgb Hct MCV MCH MCHC RDW Plt Count Seg Neutrophils % Lymphocytes % Monocytes % Eosinophils % Basophils % Absolute Neutrophils Absolute Lymphocytes Absolute Monocytes Absolute Eosinophils Absolute Basophils Retic Count (auto) Absolute Retic Sodium Potassium Chloride Carbon Dioxide Anion Gap BUN Creatinine Est GFR ( Amer) Est GFR (Non-Af Amer) Glucose POC Glucose 165 H Calcium Iron TIBC % Saturation Ferritin Total Bilirubin Direct Bilirubin Neonat Total Bilirubin Neonat Direct Bilirubin Neonat Indirect Bili AST ALT Alkaline Phosphatase Creatine Kinase CK-MB (CK-2) Troponin I < 0.012 NT-Pro-B Natriuret Pep Total Protein Albumin Triglycerides Cholesterol LDL Cholesterol Direct VLDL Cholesterol HDL Cholesterol Lipase Vitamin B12 Folate Urine Color Urine Appearance Urine pH Ur Specific [place] Urine Protein Urine Glucose (UA) Urine Ketones Urine Blood Urine Nitrite Urine Bilirubin Urine Urobilinogen Ur Leukocyte Esterase Urine WBC (Auto) Urine RBC (Auto) Squamous Epi Cells Auto Urine Mucus (Auto) Urine Ascorbic Acid Blood Type O NEGATIVE Blood Type Confirm Antibody Screen NEGATIVE Crossmatch See Detail 06/09/19 06/09/19 06/09/19 09:04 17:50 21:44 WBC 7.4 RBC 3.31 L Hgb 9.0 L Hct 27.0 L MCV 82 MCH 27.1 MCHC 33.2 RDW 20.8 H Plt Count 450 Seg Neutrophils % 68.1 Lymphocytes % 15.5 Monocytes % 13.1 H Eosinophils % 2.2 Basophils % 1.1 Absolute Neutrophils 5.1 Absolute Lymphocytes 1.1 Absolute Monocytes 1.0 Absolute Eosinophils 0.2 Absolute Basophils 0.1 Retic Count (auto) Absolute Retic Sodium Potassium Chloride Carbon Dioxide Anion Gap BUN Creatinine Est GFR ( Amer) Est GFR (Non-Af Amer) Glucose POC Glucose 178 H Calcium Iron TIBC % Saturation Ferritin Total Bilirubin Direct Bilirubin Neonat Total Bilirubin Neonat Direct Bilirubin Neonat Indirect Bili AST ALT Alkaline Phosphatase Creatine Kinase CK-MB (CK-2) Troponin I NT-Pro-B Natriuret Pep Total Protein Albumin Triglycerides Cholesterol LDL Cholesterol Direct VLDL Cholesterol HDL Cholesterol Lipase Vitamin B12 Folate Urine Color Urine Appearance Urine pH Ur Specific [place] Urine Protein Urine Glucose (UA) Urine Ketones Urine Blood Urine Nitrite Urine Bilirubin Urine Urobilinogen Ur Leukocyte Esterase Urine WBC (Auto) Urine RBC (Auto) Squamous Epi Cells Auto Urine Mucus (Auto) Urine Ascorbic Acid Blood Type Blood Type Confirm O NEGATIVE Antibody Screen Crossmatch 06/10/19 06/10/19 06/10/19 05:41 05:41 07:39 WBC 8.7 RBC 3.23 L Hgb 8.8 L Hct 26.4 L MCV 82 MCH 27.3 MCHC 33.3 RDW 21.3 H Plt Count 455 H Seg Neutrophils % 71.4 Lymphocytes % 13.1 Monocytes % 11.1 Eosinophils % 3.5 Basophils % 0.9 Absolute Neutrophils 6.2 Absolute Lymphocytes 1.1 Absolute Monocytes 1.0 Absolute Eosinophils 0.3 Absolute Basophils 0.1 Retic Count (auto) Absolute Retic Sodium 139.2 Potassium 4.7 Chloride 106 Carbon Dioxide 25 Anion Gap 8 BUN 8 Creatinine 0.53 Est GFR ( Amer) > 60 Est GFR (Non-Af Amer) > 60 Glucose 144 H POC Glucose 123 H Calcium 9.3 Iron TIBC % Saturation Ferritin Total Bilirubin Direct Bilirubin Neonat Total Bilirubin Neonat Direct Bilirubin Neonat Indirect Bili AST ALT Alkaline Phosphatase Creatine Kinase CK-MB (CK-2) Troponin I NT-Pro-B Natriuret Pep Total Protein Albumin Triglycerides 89 Cholesterol 84.27 LDL Cholesterol Direct 65 VLDL Cholesterol 18.0 HDL Cholesterol 24 L Lipase Vitamin B12 Folate Urine Color Urine Appearance Urine pH Ur Specific [place] Urine Protein Urine Glucose (UA) Urine Ketones Urine Blood Urine Nitrite Urine Bilirubin Urine Urobilinogen Ur Leukocyte Esterase Urine WBC (Auto) Urine RBC (Auto) Squamous Epi Cells Auto Urine Mucus (Auto) Urine Ascorbic Acid Blood Type Blood Type Confirm Antibody Screen Crossmatch Chest X-Ray 06/10/19 14:51 IMPRESSION: NO ACUTE RADIOGRAPHIC FINDING IN THE CHEST. IMPRESSION/RECOMMENDATION: 1. Significant anemia with admission hemoglobin of 7.4. The patient did receive transfusion and his hemoglobin is up to 9. 2. Chest pain or shortness of breath consistent with angina in a patient with multiple stents in his coronary arteries with decreased hemoglobin. Would recommend stress test when the hemoglobin is 10 or above. 3. Coronary artery disease history of multiple stents: Records awaited. Continue patient on current medication including beta blockers, Ranexa, and n itrates. We will hold off on the Brilinta until the stress test is done and further input from the records regarding the patient's GI blood loss history and work-up are known. 4. COPD: At present stable with no symptoms or signs of acute exacerbation. 5. Hypertension. 6. Hyperlipidemia: Continue statin 7. Tobacco abuse disorder: Patient counseled on smoking cessation. 3 minutes spent on this. Medications reviewed. Medications discussed with attending physician on the case. Management plan discussed with attending physician on the case. Medical decision making is of moderate to high complexity. 40 minutes spent on this patient more than 50% of time spent in direct patient care. The patient given my cell phone number to contact me if he has any symptoms. The patient is a full code. His is his surrogate healthcare decision maker. Will follow the patient in the office. Will sign off.
== END 2019-06-10 11:45 | disposition home or self-care (01) ==
LOC: ER 14:11 → EH 18:09 → 3S 23:40
PROVIDERS: ADMIT Internal Medicine; ATTEND Internal Medicine
PROC: 30233N1 Transfusion of Nonautologous Red Blood Cells into Peripheral Vein, Percutaneous Approach (ICD-10-PCS; principal; 2019-06-09)
PROC: HZ31ZZZ Individual Counseling for Substance Abuse Treatment, Behavioral (ICD-10-PCS; 2019-06-09)
DX: D50.8 Other iron deficiency anemias (principal); R07.89 Other chest pain; E78.5 Hyperlipidemia, unspecified; I10 Essential (primary) hypertension; K21.9 Gastro-esophageal reflux disease without esophagitis; G47.33 Obstructive sleep apnea (adult) (pediatric); J44.9 Chronic obstructive pulmonary disease, unspecified; E66.9 Obesity, unspecified; E11.9 Type 2 diabetes mellitus without complications; F17.210 Nicotine dependence, cigarettes, uncomplicated; I25.2 Old myocardial infarction; I25.118 Atherosclerotic heart disease of native coronary artery with other forms of angina pectoris; R63.4 Abnormal weight loss; M19.90 Unspecified osteoarthritis, unspecified site; R05 Cough; Z79.899 Other long term (current) drug therapy; Z79.82 Long term (current) use of aspirin; Z95.5 Presence of coronary angioplasty implant and graft; Z82.49 Family history of ischemic heart disease and other diseases of the circulatory system; Z90.49 Acquired absence of other specified parts of digestive tract; Z79.84 Long term (current) use of oral hypoglycemic drugs
CPT/HCPCS: 93005; 94640; 99285; 86900; 86901; 36415 ×3; 82553; 36430; 86850; 82962 ×2; 82607 ×2; 82550; 82728 ×2; 82746 ×2; 83540 ×2; 83550 ×2; 83690; 85025 ×3; 85045 ×2; 80048; 80053; 81001; 84484 ×2; 86920; 80061; 83880; 71046; 93010; 94660 ×2; 99406; G0378 ×3; P9016; A9270 ×18; J1756; J3490 ×6; J1815; J7620

== ENCOUNTER → 2019-06-17 | Outpatient (CLI) | payer MEDICARE, MEDICAID ==
--- NOTE | 2019-06-17 15:25 | RADIOLOGY REPORT (SQ) ---
EXAM DESCRIPTION: CHEST PA/LATERAL COMPLETED DATE/TIME: 06/17/2019 12:02 pm REASON FOR STUDY: ACUTE BRONCHITIS, UNSPECIFIED COMPARISON: 06/10/2019 EXAM PARAMETERS: NUMBER OF VIEWS: two views TECHNIQUE: Digital Frontal and Lateral radiographic views of the chest acquired. RADIATION DOSE: NA LIMITATIONS: none FINDINGS: LUNGS AND PLEURA: No opacities, masses or pneumothorax. No pleural effusion. MEDIASTINUM AND HILAR STRUCTURES: No masses or contour abnormalities. HEART AND VASCULAR STRUCTURES: Heart normal size. No evidence for failure. BONES: No acute findings. HARDWARE: None in the chest. OTHER: No other significant finding. IMPRESSION: NO SIGNIFICANT RADIOGRAPHIC FINDING IN THE CHEST. TECHNICAL DOCUMENTATION: JOB ID: [id number] [employer]- All Rights Reserved Reading location - IP/workstation name: [email or web address]
== END ==
LOC: OD 11:55
PROVIDERS: ATTEND Family Medicine Geriatric Medicine
DX: J20.9 Acute bronchitis, unspecified (principal)
CPT/HCPCS: 71046

== ENCOUNTER → 2019-07-19 | Outpatient (CLI) | payer MEDICARE, MEDICAID ==
[2019-07-19 14:11] LABS: ABSOLUTE EOSINOPHILS # (AUTO) 0.2 10^3/uL (0.0-0.6); ABSOLUTE MONOCYTES (AUTO) 0.6 10^3/uL (0.1-1.4); ABSOLUTE NEUT (AUTO) 4.2 10^3/uL (1.7-8.2); BASOPHILS % (AUTO) 0.8 % (0-2); EOSINOPHILS % (AUTO) 2.7 % (0-6); HEMATOCRIT 30.4 % (37.9-51.0); HEMOGLOBIN 9.2 g/dL (13.5-17.0); MEAN CORPUSCULAR HGB CONC 30.5 g/dL (32.0-36.0); MEAN CORPUSCULAR VOLUME 79 fl (80-97); MONOCYTES % (AUTO) 10.5 % (3-13); PLATELET COUNT 500 10^3/uL (150-450); RED BLOOD COUNT 3.86 10^6/uL (4.35-5.55); RED CELL DISTRIBUTION WIDTH 29.4 % (11.5-14.0); TOTAL CELLS COUNTED % (AUTO) 100 %; WHITE BLOOD COUNT 6.1 10^3/uL (4.0-10.5)
[2019-07-19 14:55] LABS: HYPOCHROMASIA 1+
[2019-07-19 14:56] LABS: ANISOCYTOSIS 4+; POIKILOCYTOSIS 1+
[2019-07-19 14:57] LABS: OVALOCYTES SLIGHT; PLATELET COMMENT INCREASED; TEAR DROP CELLS SLIGHT
== END ==
LOC: OD 13:28
PROVIDERS: ATTEND Specialist
DX: I25.118 Atherosclerotic heart disease of native coronary artery with other forms of angina pectoris (principal); I10 Essential (primary) hypertension; I25.2 Old myocardial infarction; R07.2 Precordial pain; R06.02 Shortness of breath; E11.9 Type 2 diabetes mellitus without complications; G47.33 Obstructive sleep apnea (adult) (pediatric); J44.9 Chronic obstructive pulmonary disease, unspecified; D64.9 Anemia, unspecified; R06.00 Dyspnea, unspecified; F17.219 Nicotine dependence, cigarettes, with unspecified nicotine-induced disorders; E87.5 Hyperkalemia; Z79.899 Other long term (current) drug therapy
CPT/HCPCS: 36415; 85025

== ENCOUNTER 2019-08-09 21:16 | Emergency (ER) | payer MEDICARE, MEDICAID ==
--- NOTE | 2019-08-09 21:50 | ER Document Report ---
ED Medical Screen (RME) - General Chief Complaint: Jaw Pain Stated Complaint: FACE/JAW PAIN Time Seen by Provider: 08/09/19 21:44 Primary Care Provider: THA BROWN MD [Primary Care Provider] - Follow up as needed Mode of Arrival: Ambulatory Information source: Patient Notes: 9-year-old male presents to ED for not to the right chin with lymphadenopathy. He does have multiple decayed teeth in the bottom of his mouth but there is no direct swelling at the site. There is no definite abscess to the chin. Patient states he does smoke half pack a day drinks weekly does smoke pot does not work lives with his family. He does have a history of degenerative disc disease and back problems nerve damage to his legs and fractured leg. He has had tonsillectomy, cholecystectomy, appendectomy, and carpal tunnel surgery. Because I have greeted and performed a rapid initial assessment of this patient. A comprehensive ED assessment and evaluation of the patient, analysis of test results and completion of medical decision making process will be conducted by an additional ED providers. TRAVEL OUTSIDE OF THE [place] IN LAST 30 DAYS: No - Related Data Allergies/Adverse Reactions: acetaminophen [From Vicodin] Allergy (Verified 06/08/19 14:11) clopidogrel [From Plavix] Allergy (Verified 06/08/19 14:11) coconut Allergy (Verified 06/08/19 14:11) hydrocodone [From Vicodin] Allergy (Verified 06/08/19 14:11) strawberry Allergy (Verified 06/08/19 14:11) Sulfa (Sulfonamide Antibiotics) Allergy (Verified 06/08/19 14:11) Past Medical History - Social History Chew tobacco use (# tins/day): No Frequency of alcohol use: Occasional Drug Abuse: None - Past Medical History Cardiac Medical History: Reports: Hx Coronary Artery Disease, Hx Heart Attack - X4, 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, Hx Hypertension Pulmonary Medical History: Reports: Hx Bronchitis, Hx COPD, Hx Pneumonia Endocrine Medical History: Reports: Hx Diabetes Mellitus Type 1, Hx Diabetes Mellitus Type 2 Renal/ Medical History: Denies: Hx Peritoneal Dialysis Musculoskeltal Medical History: Reports Hx Arthritis Past Surgical History: Reports: Hx Appendectomy, Hx Cardiac Catheterization - 11 stents, Hx Coronary Stent - x 11, Hx Orthopedic Surgery - carpal tunnel release right hand, Hx Tonsillectomy - Immunizations Hx Diphtheria, Pertussis, Tetanus Vaccination: Yes - 2018 Physical Exam - Vital signs Vitals: Temp Pulse Resp BP Pulse Ox 97.6 F 66 16 126/72 H 96 08/09/19 21:34 08/09/19 21:34 08/09/19 21:34 08/09/19 21:34 08/09/19 21:34 Course - Vital Signs Vital signs: Temp Pulse Resp BP Pulse Ox 97.6 F 66 16 126/72 H 96 08/09/19 21:34 08/09/19 21:34 08/09/19 21:34 08/09/19 21:34 08/09/19 21:34 Doctor's Discharge - Discharge Referrals: THA BROWN MD [Primary Care Provider] - Follow up as needed
[2019-08-10 01:33] VITALS: BP 130/77
[2019-08-10] MEDS ORDERED: CLINDAMYCIN HCL 150 MG CAPSULE PO ONE (01:41)
[2019-08-10] MEDS ORDERED: IBUPROFEN 600 MG TABLET PO ONE (01:42)
--- NOTE | 2019-08-10 01:49 | ER Document Report ---
ED Oral Problem - General Chief Complaint: Jaw Pain Stated Complaint: FACE/JAW PAIN Time Seen by Provider: 08/09/19 21:44 Primary Care Provider: THA BROWN MD [Primary Care Provider] - Follow up as needed Mode of Arrival: Ambulatory TRAVEL OUTSIDE OF THE [place] IN LAST 30 DAYS: No - HPI Associated symptoms: Toothache Notes: This is a 59-year-old gentleman who presents today with complaint of dental pain and right mandible/chin swelling for the past 1 to 2 days. Patient describes pain worse with chewing. He denies any fever or chills. Describes the symptoms as mild. - Related Data Allergies/Adverse Reactions: acetaminophen [From Vicodin] Allergy (Verified 06/08/19 14:11) clopidogrel [From Plavix] Allergy (Verified 06/08/19 14:11) coconut Allergy (Verified 06/08/19 14:11) hydrocodone [From Vicodin] Allergy (Verified 06/08/19 14:11) strawberry Allergy (Verified 06/08/19 14:11) Sulfa (Sulfonamide Antibiotics) Allergy (Verified 06/08/19 14:11) Past Medical History - General Information source: Patient - Social History Smoking Status: Current Every Day Smoker Chew tobacco use (# tins/day): No Frequency of alcohol use: Occasional Drug Abuse: None Family History: Reviewed & Not Pertinent, CAD - Father and grandparents had CAD Patient has suicidal ideation: No Patient has homicidal ideation: No - Past Medical History Cardiac Medical History: Reports: Hx Coronary Artery Disease, Hx Heart Attack - X4, 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, Hx Hypertension Pulmonary Medical History: Reports: Hx Bronchitis, Hx COPD, Hx Pneumonia Endocrine Medical History: Reports: Hx Diabetes Mellitus Type 1, Hx Diabetes Mellitus Type 2 Renal/ Medical History: Denies: Hx Peritoneal Dialysis Musculoskeletal Medical History: Reports Hx Arthritis Past Surgical History: Reports: Hx Appendectomy, Hx Cardiac Catheterization - 11 stents, Hx Coronary Stent - x 11, Hx Orthopedic Surgery - carpal tunnel release right hand, Hx Tonsillectomy - Immunizations Hx Diphtheria, Pertussis, Tetanus Vaccination: Yes - 2018 Review of Systems - Review of Systems EENT: Mouth pain, Dental problem Cardiovascular: denies: Chest pain, Palpitations Neurological/Psychological: denies: Headaches -: Yes All other systems reviewed and negative Physical Exam - Vital signs Vitals: Temp Pulse Resp BP Pulse Ox 97.6 F 66 16 126/72 H 96 08/09/19 21:34 08/09/19 21:34 08/09/19 21:34 08/09/19 21:34 08/09/19 21:34 - General General appearance: Appears well, Alert - HEENT Head: Normocephalic, Atraumatic Eyes: Normal Pupils: PERRL Notes: There is widespread dental decay with poor dentition, including multiple missing teeth. There is tenderness in the right lower incisor adjacent gingiva. There is very minimal swelling of the right mandible. There is no brawny induration of the jaw. No clinical evidence of ciarra's angina. No trismus. - Respiratory Respiratory status: No respiratory distress Chest status: Nontender Breath sounds: Normal Chest palpation: Normal - Cardiovascular Rhythm: Regular Heart sounds: Normal auscultation Murmur: No - Skin Skin Temperature: Warm Skin Moisture: Dry Skin Color: Normal Course - Re-evaluation Re-evalutation: 08/10/19 01:46 Clinical picture consistent with dental caries/dental abscess. Will put patient on clindamycin and NSAIDs. Refer to dentist. He is stable for discharge. - Vital Signs Vital signs: Temp Pulse Resp BP Pulse Ox 97.3 F 66 16 130/77 H 95 08/10/19 01:32 08/10/19 01:32 08/10/19 01:32 08/10/19 01:32 08/10/19 01:32 Discharge - Discharge Clinical Impression: Dental caries, Dental abscess Condition: Good Disposition: HOME, SELF-CARE Instructions: Dental Infection or Abscess ([facility]) Prescriptions: Clindamycin HCl 300 mg PO TID #30 capsule Naproxen 500 mg PO BID PRN #14 tablet PRN Reason: Referrals: THA BROWN MD [Primary Care Provider] - Follow up as needed [facility] [NO LOCAL MD] - Follow up as needed
== END 2019-08-10 02:05 | disposition home or self-care (01) ==
LOC: ER 21:16
DX: K02.9 Dental caries, unspecified (principal); K04.7 Periapical abscess without sinus; R68.84 Jaw pain; R51 Headache; K08.89 Other specified disorders of teeth and supporting structures; R22.0 Localized swelling, mass and lump, head; F17.200 Nicotine dependence, unspecified, uncomplicated; I25.10 Atherosclerotic heart disease of native coronary artery without angina pectoris; I25.2 Old myocardial infarction; I10 Essential (primary) hypertension; J44.9 Chronic obstructive pulmonary disease, unspecified; E11.9 Type 2 diabetes mellitus without complications
CPT/HCPCS: A9270 ×2; 99283

== ENCOUNTER → 2019-08-09 | Outpatient (CLI) | payer MEDICARE, MEDICAID ==
[2019-08-09 13:21] LABS: ABSOLUTE BASOPHILS # (AUTO) 0.1 10^3/uL (0.0-0.2); ABSOLUTE EOSINOPHILS # (AUTO) 0.2 10^3/uL (0.0-0.6); ABSOLUTE LYMPHOCYTES (AUTO) 1.1 10^3/uL (0.5-4.7); ABSOLUTE MONOCYTES (AUTO) 0.6 10^3/uL (0.1-1.4); ABSOLUTE NEUT (AUTO) 5.5 10^3/uL (1.7-8.2); BASOPHILS % (AUTO) 0.7 % (0-2); EOSINOPHILS % (AUTO) 2.8 % (0-6); HEMATOCRIT 34.3 % (37.9-51.0); HEMOGLOBIN 10.6 g/dL (13.5-17.0); LYMPHOCYTES % (AUTO) 14.2 % (13-45); MEAN CORPUSCULAR HEMOGLOBIN 25.5 pg (27.0-33.4); MEAN CORPUSCULAR HGB CONC 30.9 g/dL (32.0-36.0); MONOCYTES % (AUTO) 8.4 % (3-13); PLATELET COUNT 338 10^3/uL (150-450); RED BLOOD COUNT 4.15 10^6/uL (4.35-5.55); SEGMENTED NEUTROPHILS % (AUTO) 73.9 % (42-78); TOTAL CELLS COUNTED % (AUTO) 100 %; WHITE BLOOD COUNT 7.4 10^3/uL (4.0-10.5)
[2019-08-09 13:34] LABS: MEAN CORPUSCULAR VOLUME 83 fl (80-97)
[2019-08-09 13:48] LABS: OVALOCYTES SLIGHT; PLATELET COMMENT ADEQUATE; POIKILOCYTOSIS SLIGHT; TEAR DROP CELLS SLIGHT
[2019-08-09 13:49] LABS: ANISOCYTOSIS 3+
[2019-08-09 13:52] LABS: ALBUMIN 3.7 g/dL (3.5-5.0); ALKALINE PHOSPHATASE 107 U/L (38-126); ANION GAP 11 (5-19); ASPARTATE AMINO TRANSFERASE 17 U/L (17-59); BILIRUBIN,DIRECT 0.1 mg/dL (0.0-0.4); BILIRUBIN,TOTAL 0.2 mg/dL (0.2-1.3); BLOOD UREA NITROGEN 14 mg/dL (7-20); CALCIUM 9.5 mg/dL (8.4-10.2); CARBON DIOXIDE 23 mmol/L (22-30); CHLORIDE 103 mmol/L (98-107); CHOLESTEROL 95.61 mg/dL (0-200); GLUCOSE 81 mg/dL (75-110); TOTAL PROTEIN 6.5 g/dL (6.3-8.2); TRIGLYCERIDES 96 mg/dL (<150)
[2019-08-09 14:03] LABS: DIRECT LDL 76 mg/dL (<100)
[2019-08-10 11:37] LABS: CREATININE URINE 29.1 mg/dL (Not Estab.); MICROALBUMIN URINE 3.6 ug/mL (Not Estab.)
== END ==
LOC: OD 12:24
PROVIDERS: ATTEND Family Medicine Geriatric Medicine
DX: E11.21 Type 2 diabetes mellitus with diabetic nephropathy (principal); E78.5 Hyperlipidemia, unspecified; I10 Essential (primary) hypertension; Z79.899 Other long term (current) drug therapy; J44.9 Chronic obstructive pulmonary disease, unspecified
CPT/HCPCS: 36415; 80053; 80061; 82043; 82570; 83036; 84443; 85025

== ENCOUNTER → 2019-08-20 | Outpatient (CLI) | payer MEDICARE, MEDICAID ==
[2019-08-20 13:23] LABS: ABSOLUTE BASOPHILS # (AUTO) 0.1 10^3/uL (0.0-0.2); ABSOLUTE EOSINOPHILS # (AUTO) 0.3 10^3/uL (0.0-0.6); ABSOLUTE LYMPHOCYTES (AUTO) 1.4 10^3/uL (0.5-4.7); ABSOLUTE MONOCYTES (AUTO) 0.6 10^3/uL (0.1-1.4); ABSOLUTE NEUT (AUTO) 5.2 10^3/uL (1.7-8.2); BASOPHILS % (AUTO) 0.9 % (0-2); EOSINOPHILS % (AUTO) 3.4 % (0-6); HEMOGLOBIN 11.1 g/dL (13.5-17.0); LYMPHOCYTES % (AUTO) 18.9 % (13-45); MEAN CORPUSCULAR HEMOGLOBIN 26.3 pg (27.0-33.4); MEAN CORPUSCULAR HGB CONC 31.9 g/dL (32.0-36.0); MEAN CORPUSCULAR VOLUME 83 fl (80-97); MONOCYTES % (AUTO) 8.1 % (3-13); RED BLOOD COUNT 4.24 10^6/uL (4.35-5.55); RED CELL DISTRIBUTION WIDTH 22.7 % (11.5-14.0); SEGMENTED NEUTROPHILS % (AUTO) 68.7 % (42-78); TOTAL CELLS COUNTED % (AUTO) 100 %; WHITE BLOOD COUNT 7.6 10^3/uL (4.0-10.5)
[2019-08-20 13:34] LABS: ANION GAP 11 (5-19); BLOOD UREA NITROGEN 14 mg/dL (7-20); CARBON DIOXIDE 24 mmol/L (22-30); CHLORIDE 102 mmol/L (98-107); GLUCOSE 174 mg/dL (75-110); POTASSIUM 4.8 mmol/L (3.6-5.0)
[2019-08-20 14:16] LABS: ANISOCYTOSIS 3+; HYPOCHROMASIA 2+; PLATELET CLUMPS PRESENT; PLATELET COMMENT ADEQUATE; POIKILOCYTOSIS SLIGHT
[2019-08-20 14:18] LABS: PLATELET COUNT 363 10^3/uL (150-450)
== END ==
LOC: OD 12:34
PROVIDERS: ATTEND Specialist
DX: I25.118 Atherosclerotic heart disease of native coronary artery with other forms of angina pectoris (principal); I10 Essential (primary) hypertension; I25.2 Old myocardial infarction; R07.2 Precordial pain; R06.02 Shortness of breath; E11.9 Type 2 diabetes mellitus without complications; G47.33 Obstructive sleep apnea (adult) (pediatric); J44.9 Chronic obstructive pulmonary disease, unspecified; D64.9 Anemia, unspecified; F17.219 Nicotine dependence, cigarettes, with unspecified nicotine-induced disorders; E78.5 Hyperlipidemia, unspecified; Z79.899 Other long term (current) drug therapy
CPT/HCPCS: 36415; 80051; 82565; 82947; 83735; 84520; 85025

== ENCOUNTER 2019-08-22 07:55 | Outpatient (CLI) | payer MEDICARE, MEDICAID ==
[2019-08-22 08:08] VITALS: BP 127/68
[2019-08-22] MEDS ORDERED: IRON DEXTRAN COMPLEX 25 MG in SYRINGE, DISPOSABLE, 1 EACH IV PRN (08:09)
[2019-08-22] MEDS ORDERED: IRON DEXTRAN COMPLEX 775 MG in NORMAL SALINE 500 ML IV PRN (08:15)
[2019-08-22] MEDS ORDERED: NORMAL SALINE 250 ML IV PRN (08:16)
== END 2019-08-22 13:14 | disposition home or self-care (01) ==
LOC: II 07:55 → 5TH 08:47 → II 13:14
PROVIDERS: ATTEND Internal Medicine Hematology & Oncology
PROC: 3E033GC Introduction of Other Therapeutic Substance into Peripheral Vein, Percutaneous Approach (ICD-10-PCS; principal; 2019-08-22)
DX: D50.9 Iron deficiency anemia, unspecified (principal)
CPT/HCPCS: 96365; 96366; 96375; J1750; J7040; J3490

== ENCOUNTER 2019-08-29 07:39 | Outpatient (CLI) | payer MEDICARE, MEDICAID ==
[~2019-08-29 07:39] MED LIST changes: -CEFAZOLIN 1 GM/D5W RTU 1 GM/50 ML RTUPB IV PRN; -GLYCOPYRROLATE INJ 0.4 MG/2 ML VIAL ONE; +IRON DEXTRAN COMPLEX 800 MG in NORMAL SALINE 500 ML IV PRN; -LACTATED RINGERS 1000 ML IV PRN; -LIDOCAINE 0.5% INJ-PF (5 MG/ML) 50 ML SDV SUBCUT PRN; -LIDOCAINE 2% INJ-PF (20 MG/ML) 2 ML AMPUL ONE; +NORMAL SALINE 250 ML IV PRN; -ONDANSETRON HCL INJ/PF 4 MG/2 ML SDV ONE; -SUCCINYLCHOLINE CHLORIDE INJ 200 MG/10 ML VIAL ONE
[2019-08-29 08:28] VITALS: BP 128/68
== END 2019-08-29 11:34 | disposition home or self-care (01) ==
LOC: II 07:39 → 5TH 07:42 → II 11:34
PROVIDERS: ATTEND Internal Medicine Hematology & Oncology
PROC: 3E033GC Introduction of Other Therapeutic Substance into Peripheral Vein, Percutaneous Approach (ICD-10-PCS; principal; 2019-08-29)
DX: D50.9 Iron deficiency anemia, unspecified (principal)
CPT/HCPCS: 96365; 96366; J1750; J7040

== ENCOUNTER → 2020-03-23 | Outpatient (CLI) | payer MEDICARE, MEDICAID ==
--- NOTE | 2020-03-23 12:42 | RADIOLOGY REPORT (SQ) ---
EXAM DESCRIPTION: CHEST 2 VIEWS IMAGES COMPLETED DATE/TIME: 03/23/2020 12:28 pm REASON FOR STUDY: R05 COUGH COMPARISON: None. EXAM PARAMETERS: NUMBER OF VIEWS: two views TECHNIQUE: Digital Frontal and Lateral radiographic views of the chest acquired. RADIATION DOSE: NA LIMITATIONS: none FINDINGS: LUNGS AND PLEURA: No opacities, masses or pneumothorax. No pleural effusion. MEDIASTINUM AND HILAR STRUCTURES: No masses or contour abnormalities. HEART AND VASCULAR STRUCTURES: Heart normal size. No evidence for failure. BONES: No acute findings. HARDWARE: None in the chest. OTHER: No other significant finding. IMPRESSION: NO ACUTE RADIOGRAPHIC FINDING IN THE CHEST. TECHNICAL DOCUMENTATION: JOB ID: [id number] 2010 [employer]- All Rights Reserved Reading location - IP/workstation name: [email or web address]
== END ==
LOC: RAD 12:19
PROVIDERS: ATTEND Family Medicine Geriatric Medicine
DX: R05 Cough (principal)
CPT/HCPCS: 71046

== ENCOUNTER 2020-04-02 12:36 | Emergency (ER) | payer MEDICARE, MEDICAID ==
[2020-04-02] MEDS ORDERED: ASPIRIN 81 MG TABLET, CHEWABLE PO ONE ×2 (13:09→13:13)
[2020-04-02] MEDS ORDERED: IPRATROPIUM/ALBUTEROL 0.5-2.5 MG/3 ML AMPUL NEB ONE ×2 (13:13→16:28)
--- NOTE | 2020-04-02 13:15 | ER Document Report ---
ED Medical Screen (RME) - General Chief Complaint: Chest Pain Stated Complaint: CHEST PAIN Time Seen by Provider: 04/02/20 13:05 Primary Care Provider: EUFEMIA VINCENT MD [Primary Care Provider] - Follow up as needed TRAVEL OUTSIDE OF THE [place] IN LAST 30 DAYS: No - HPI Notes: 04/02/20 13:10 59-year man with a history of 4 MIs and 11 stents who is on a small baby aspirin presents to the emergency room with complaints of chest pain for the last 2 weeks it has become progressively worse. She states he woke up this morning at 3 AM with severe chest pain, took a nitroglycerin and this resolved most of his pain. Patient does have a history of hypertension, COPD, anemia. Patient follows with Dr. cornelius and he believes Dr. Phillips is his painter barrel. Patient is a less than a pack a day smoker. Patient states his chest pain has been more manageable since taking his nitroglycerin this morning. Does take an 81 mg tablet of aspirin and did take it this morning as well I have greeted and performed a rapid initial assessment of this patient. A comprehensive ED assessment and evaluation of the patient, analysis of test results and completion of the medical decision making process will be conducted by additional ED providers. PHYSICAL EXAMINATION: GENERAL: Well-appearing, well-nourished and in no acute distress. HEAD: Atraumatic, normocephalic. EYES: Pupils equal round extraocular movements intact, conjunctiva are normal. NECK: Normal range of motion CV: s1, s2 regular LUNGS: wheezing in upper lobes NEUROLOGICAL: Normal speech, normal gait. - Related Data Allergies/Adverse Reactions: clopidogrel [From Plavix] Allergy (Verified 04/02/20 13:10) coconut Allergy (Verified 04/02/20 13:10) hydrocodone [From Vicodin] Allergy (Verified 04/02/20 13:10) strawberry Allergy (Verified 04/02/20 13:10) Sulfa (Sulfonamide Antibiotics) Allergy (Verified 04/02/20 13:10) Past Medical History - Past Medical History Cardiac Medical History: Reports: Hx Coronary Artery Disease, Hx Heart Attack - X4, 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, Hx Hypertension Pulmonary Medical History: Reports: Hx Bronchitis, Hx COPD, Hx Pneumonia Endocrine Medical History: Reports: Hx Diabetes Mellitus Type 1, Hx Diabetes Mellitus Type 2 Renal/ Medical History: Denies: Hx Peritoneal Dialysis Musculoskeltal Medical History: Reports Hx Arthritis Past Surgical History: Reports: Hx Appendectomy, Hx Cardiac Catheterization - 11 stents, Hx Coronary Stent - x 11, Hx Orthopedic Surgery - carpal tunnel release right hand, Hx Tonsillectomy - Immunizations Hx Diphtheria, Pertussis, Tetanus Vaccination: Yes - 2017 Physical Exam - Vital signs Vitals: Temp Pulse Resp BP Pulse Ox 98.0 F 91 20 147/77 H 97 04/02/20 12:49 04/02/20 12:49 04/02/20 12:49 04/02/20 12:49 04/02/20 12:49 Course - Vital Signs Vital signs: Temp Pulse Resp BP Pulse Ox 98.0 F 91 20 147/77 H 97 04/02/20 12:49 04/02/20 12:49 04/02/20 12:49 04/02/20 12:49 04/02/20 12:49 Doctor's Discharge - Discharge Referrals: EUFEMIA VINCENT MD [Primary Care Provider] - Follow up as needed
[2020-04-02 13:50] LABS: ABSOLUTE MONOCYTES (AUTO) 0.7 10^3/uL (0.1-1.4); ABSOLUTE NEUT (AUTO) 4.7 10^3/uL (1.7-8.2); BASOPHILS % (AUTO) 0.5 % (0-2); EOSINOPHILS % (AUTO) 0.5 % (0-6); HEMATOCRIT 36.3 % (37.9-51.0); HEMOGLOBIN 10.9 g/dL (13.5-17.0); LYMPHOCYTES % (AUTO) 15.5 % (13-45); MEAN CORPUSCULAR HEMOGLOBIN 20.6 pg (27.0-33.4); MEAN CORPUSCULAR VOLUME 69 fl (80-97); MONOCYTES % (AUTO) 10.3 % (3-13); PLATELET COUNT 454 10^3/uL (150-450); RED BLOOD COUNT 5.29 10^6/uL (4.35-5.55); SEGMENTED NEUTROPHILS % (AUTO) 73.2 % (42-78); TOTAL CELLS COUNTED % (AUTO) 100 %; WHITE BLOOD COUNT 6.4 10^3/uL (4.0-10.5)
[2020-04-02 13:53] LABS: APPEARANCE,URINE CLEAR; BILIRUBIN,URINE NEGATIVE (NEGATIVE); COLOR,URINE STRAW; GLUCOSE, URINE >=500 mg/dL (NEGATIVE); KETONES,URINE TRACE mg/dL (NEGATIVE); LEUKOCYTE ESTERASE,URINE NEGATIVE (NEGATIVE); NITRITE,URINE NEGATIVE (NEGATIVE); PROTEIN,URINE NEGATIVE (NEGATIVE); URINE SPECIFIC GRAVITY 1.025; UROBILINOGEN,URINE NEGATIVE mg/dL (<2.0)
[2020-04-02 14:23] LABS: ALBUMIN 4.5 g/dL (3.5-5.0); ALKALINE PHOSPHATASE 189 U/L (38-126); ANION GAP 13 (5-19); ASPARTATE AMINO TRANSFERASE 15 U/L (17-59); BILIRUBIN,TOTAL 0.2 mg/dL (0.2-1.3); BLOOD UREA NITROGEN 14 mg/dL (7-20); CALCIUM 9.9 mg/dL (8.4-10.2); CARBON DIOXIDE 24 mmol/L (22-30); CHLORIDE 94 mmol/L (98-107); CREATINE KINASE 38 U/L (55-170); POTASSIUM 5.1 mmol/L (3.6-5.0); TOTAL PROTEIN 7.7 g/dL (6.3-8.2)
[2020-04-02 14:36] LABS: CREATINE KINASE MB 0.73 ng/mL (<4.55); TROPONIN I < 0.012 ng/mL
[2020-04-02] MEDS ORDERED: NORMAL SALINE 1000 ML 1,000 ML IV ONE (14:37)
[2020-04-02 14:58] LABS: GLUCOSE 622 mg/dL (75-110)
--- NOTE | 2020-04-02 19:01 | EKG REPORT ---
SEVERITY:- BORDERLINE ECG - SINUS RHYTHM BORDERLINE T ABNORMALITIES, ANT-LAT LEADS : Confirmed by: Hai Calhoun MD 02-Apr-2020 19:00:36
--- NOTE | 2020-04-02 19:13 | ER Document Report ---
Doctor's Note Notes: 04/02/20 19:10 1500-Bedside nurse made me aware that patient's BS is over 400's. Vitals stable eating ice chips. cardiac workup is pending. no active chest pain at this time. Patient awaiting to be seen by a main ER provider. Bedside reevaluation completed, patient stable. In no distress at this.
--- NOTE | 2020-04-02 20:23 | RADIOLOGY REPORT (SQ) ---
EXAM DESCRIPTION: CLINICAL HISTORY: 59 years Male wheezing COMPARISON: 06/10/2019 FINDINGS: The cardiomediastinal silhouette appears unremarkable. No consolidating infiltrates or pleural effusions. No pneumothorax. IMPRESSION: No acute abnormality is identified.
--- NOTE | 2020-04-02 21:41 | ER Document Report ---
ED General - General Chief Complaint: Chest Pain Stated Complaint: CHEST PAIN Time Seen by Provider: 04/02/20 13:05 Primary Care Provider: EUFEMIA VINCENT MD [Primary Care Provider] - Follow up as needed Mode of Arrival: Ambulatory Information source: Patient Notes: Patient is a 59-year-old male who came to the emergency room approximately 9 hours ago. Patient came in with some shortness of breath some cough and congestion stated he had some left arm discomfort as well. He has a history of cardiac problems but states he did not have any real chest pain. Patient states he is being seen by Dr. Amaral and being treated for bronchitis. He also states that he is a insulin-dependent diabetic he takes 1 pill a day and also Lantus at night. He states that his last hemoglobin A1c was recently done it was below 6 so he is cut back on his medications. He also states that he has been wheezing and does do a MDI at home along with 2 other medications he is unsure of the name. TRAVEL OUTSIDE OF THE [place] IN LAST 30 DAYS: No - HPI Onset: Last week Onset/Duration: Gradual Quality of pain: Achy, Throbbing Severity: Mild Pain Level: 1 Associated symptoms: Nonproductive cough Exacerbated by: Denies Relieved by: Denies Similar symptoms previously: Yes - Related Data Allergies/Adverse Reactions: clopidogrel [From Plavix] Allergy (Verified 04/02/20 13:10) coconut Allergy (Verified 04/02/20 13:10) hydrocodone [From Vicodin] Allergy (Verified 04/02/20 13:10) strawberry Allergy (Verified 04/02/20 13:10) Sulfa (Sulfonamide Antibiotics) Allergy (Verified 04/02/20 13:10) Past Medical History - General Information source: Patient - Social History Smoking Status: Current Every Day Smoker Cigarette use (# per day): Yes - Half pack a day Chew tobacco use (# tins/day): No Frequency of alcohol use: Occasional Drug Abuse: Marijuana Family History: Reviewed & Not Pertinent, CAD - Father and grandparents had CAD Patient has homicidal ideation: No - Past Medical History Cardiac Medical History: Reports: Hx Coronary Artery Disease, Hx Heart Attack - X4, 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, Hx Hypertension Pulmonary Medical History: Reports: Hx Bronchitis, Hx COPD, Hx Pneumonia Endocrine Medical History: Reports: Hx Diabetes Mellitus Type 1, Hx Diabetes Mellitus Type 2 Renal/ Medical History: Denies: Hx Peritoneal Dialysis Musculoskeletal Medical History: Reports Hx Arthritis Past Surgical History: Reports: Hx Appendectomy, Hx Cardiac Catheterization - 11 stents, Hx Coronary Stent - x 11, Hx Orthopedic Surgery - carpal tunnel release right hand, Hx Tonsillectomy - Immunizations Hx Diphtheria, Pertussis, Tetanus Vaccination: Yes - 2018 Review of Systems - Review of Systems Constitutional: No symptoms reported EENT: No symptoms reported Cardiovascular: See HPI Respiratory: Cough, Wheezing Gastrointestinal: No symptoms reported Genitourinary: No symptoms reported Male Genitourinary: No symptoms reported Musculoskeletal: No symptoms reported Skin: No symptoms reported Hematologic/Lymphatic: No symptoms reported Neurological/Psychological: No symptoms reported -: Yes All other systems reviewed and negative Physical Exam - Vital signs Vitals: Temp Pulse Resp BP Pulse Ox 98.0 F 91 20 147/77 H 97 04/02/20 12:49 04/02/20 12:49 04/02/20 12:49 04/02/20 12:49 04/02/20 12:49 Interpretation: Hypertensive, Other - Notes Notes: PHYSICAL EXAMINATION: GENERAL: Patient is a well-nourished well-developed 59-year-old male is in no apparent distress on physical exam today. Patient is somewhat anxious and upset that he is been in the ER for a while so he is demanding to be released AGAINST MEDICAL ADVICE. Patient is allowed me to do a physical exam done. HEAD: Atraumatic, normocephalic. EYES: Pupils equal round and reactive to light, extraocular movements intact, sclera anicteric, conjunctiva are normal. ENT: Nares patent, oropharynx clear without exudates. Moist mucous membranes. NECK: Normal range of motion, supple without lymphadenopathy LUNGS: Auscultation patient's lungs shows he has bilateral breath sounds of breath sounds decreased throughout he has end expiratory wheeze noted on the upper right lung as well as some mild rhonchi scattered to the lower bases. Patient started radiograph HEART: Regular rate and rhythm without murmurs ABDOMEN: Soft, nontender, nondistended abdomen. No guarding, no rebound. No masses appreciated. Musculoskeletal: Normal range of motion, no pitting or edema. No cyanosis. NEUROLOGICAL: Cranial nerves grossly intact. Normal speech, normal gait. Normal sensory, motor exams PSYCH: Normal mood, normal affect. SKIN: Warm, Dry, normal turgor, no rashes or lesions noted. Course - Re-evaluation Re-evalutation: 04/02/20 21:41 Patient did have to wait an extensive amount of time in the emergency room we have been over inundated with patients today and patient had blood work ordered by the triage people upfront. Came back with a glucose level 622 on his origin al draw. Second draw was done later on in the day was down to 322 with only receiving some fluids. Patient denies having any chest pain. I want him to sit down with patient discussed the possibility of doing a more extensive work-up with rechecking his blood sugar and an acetone level and also to do a troponin level but patient is demanding to go home. I informed him that he can go home and I I understand his agitation with having to wait so long today and have explained to him that I am more than willing to take the time to backslash being with him to try to expedite these processes but he is at this point unwilling to do so. He states that if he gets worse he can come back. He does understand that if he leaves he we cannot guarantee that he is having a heart attack or not. - Vital Signs Vital signs: Temp Pulse Resp BP Pulse Ox 98.0 F 91 20 156/85 H 98 04/02/20 13:06 04/02/20 12:49 04/02/20 19:01 04/02/20 19:01 04/02/20 19:00 - Laboratory Result Diagrams: 04/02/20 13:35 04/02/20 13:35 Laboratory results interpreted by me: 04/02/20 04/02/20 04/02/20 13:35 13:35 13:35 Hgb 10.9 L Hct 36.3 L MCV 69 L MCH 20.6 L MCHC 30.0 L RDW 19.0 H Plt Count 454 H Sodium 131.3 L Potassium 5.1 H Chloride 94 L Glucose 622 H* POC Glucose AST 15 L Alkaline Phosphatase 189 H Creatine Kinase 38 L NT-Pro-B Natriuret Pep 152 H Urine Glucose (UA) Urine Ketones 04/02/20 04/02/20 04/02/20 13:35 14:43 16:35 Hgb Hct MCV MCH MCHC RDW Plt Count Sodium Potassium Chloride Glucose POC Glucose 487 H* 399 H AST Alkaline Phosphatase Creatine Kinase NT-Pro-B Natriuret Pep Urine Glucose (UA) >=500 H Urine Ketones TRACE H 04/02/20 18:40 Hgb Hct MCV MCH MCHC RDW Plt Count Sodium Potassium Chloride Glucose POC Glucose 322 H AST Alkaline Phosphatase Creatine Kinase NT-Pro-B Natriuret Pep Urine Glucose (UA) Urine Ketones Discharge - Discharge Clinical Impression: Left against medical advice, Hyperglycemia, Bronchitis Disposition: AGAINST MEDICAL ADVICE Additional Instructions: HYPERGLYCEMIA (HIGH BLOOD SUGAR): You have an abnormally high blood sugar. Not all high blood sugar requires long-term treatment. High blood sugar can be due to medications, , or the stress of illness. (These cases are "borderline diabetes.") If the doctor feels your high blood sugar might resolve with time, you may not require treatment now. It's very important that you follow through, to see if the blood sugar returns to normal levels. Uncontrolled high blood sugar leads to early heart disease, strokes, nerve damage, eye damage, and kidney damage. Call the physician if there is faintness, excess sleepiness, or very rapid breathing. FOLLOW-UP CARE: If you have been referred to a physician for follow-up care, call the physicians office for an appointment as you were instructed or within the next two days. If you experience worsening or a significant change in your symptoms, notify the physician immediately or return to the Emergency Department at any time for re-evaluation. Forms: Smoking Cessation Education, Elevated Blood Pressure Referrals: EUFEMIA VINCENT MD [Primary Care Provider] - Follow up as needed
[2020-04-02 22:13] VITALS: BP 174/87
== END 2020-04-02 22:02 | disposition left against medical advice (07) ==
LOC: ER 12:36
DX: J40 Bronchitis, not specified as acute or chronic (principal); E11.65 Type 2 diabetes mellitus with hyperglycemia; R07.9 Chest pain, unspecified; I25.10 Atherosclerotic heart disease of native coronary artery without angina pectoris; I10 Essential (primary) hypertension; F17.210 Nicotine dependence, cigarettes, uncomplicated; J44.9 Chronic obstructive pulmonary disease, unspecified; Z88.6 Allergy status to analgesic agent; Z88.2 Allergy status to sulfonamides; Z79.84 Long term (current) use of oral hypoglycemic drugs; Z79.4 Long term (current) use of insulin; I25.2 Old myocardial infarction
CPT/HCPCS: 93005; 94640; 99285; 96360; 36415; 82553; 82962; 82550; 85025; 80053; 81001; 84484; 83880; 71045; 93010; A9270 ×2; J7030; J7620

== ENCOUNTER 2020-04-20 22:33 | Observation (INO) | payer MEDICARE, MEDICAID ==
[2020-04-20] MEDS ORDERED: NITROGLYCERIN 0.4 MG/TAB 25 TAB/BOTTLE SL PRN ×2 (22:40→23:54)
[2020-04-20] MEDS ORDERED: ASPIRIN 325 MG TABLET PO ONE (22:40)
--- NOTE | 2020-04-20 22:48 | ER Document Report ---
ED General - General Chief Complaint: Chest Pain Stated Complaint: CHEST PAIN Time Seen by Provider: 04/20/20 22:36 Primary Care Provider: EUFEMIA VINCENT MD [ACTIVE STAFF] - Follow up as needed Notes: 59-year-old male with diabetes and a history of coronary disease with "11 stents in my heart" presents with chest pain left-sided pressure-like radiating down the left arm with left hand tingling. Happened 2 hours ago and brought him to his knees. Got slightly better with nitroglycerin and even slightly better than that with EMS nitro and then requested fentanyl to get the pain even better. He has had "11 stents" with his last cath being 2 years ago which he said resulted in a stent. He has seen Dr. Vincent for cardiology. He denies shortness of breath other than his baseline COPD no cough no fever no sputum. He is allergic to Plavix. TRAVEL OUTSIDE OF THE [place] IN LAST 30 DAYS: No - Related Data Allergies/Adverse Reactions: clopidogrel [From Plavix] Allergy (Verified 04/02/20 13:10) coconut Allergy (Verified 04/02/20 13:10) hydrocodone [From Vicodin] Allergy (Verified 04/02/20 13:10) strawberry Allergy (Verified 04/02/20 13:10) Sulfa (Sulfonamide Antibiotics) Allergy (Verified 04/02/20 13:10) Past Medical History - General Information source: Patient - Social History Smoking Status: Current Every Day Smoker Family History: Reviewed & Not Pertinent, CAD - Father and grandparents had CAD - Past Medical History Cardiac Medical History: Reports: Hx Coronary Artery Disease, Hx Heart Attack - X4, 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, Hx Hypertension Pulmonary Medical History: Reports: Hx Bronchitis, Hx COPD, Hx Pneumonia Endocrine Medical History: Reports: Hx Diabetes Mellitus Type 1, Hx Diabetes Mellitus Type 2 Renal/ Medical History: Denies: Hx Peritoneal Dialysis Musculoskeletal Medical History: Reports Hx Arthritis Past Surgical History: Reports: Hx Appendectomy, Hx Cardiac Catheterization - 11 stents, Hx Coronary Stent - x 11, Hx Orthopedic Surgery - carpal tunnel release right hand, Hx Tonsillectomy - Immunizations Hx Diphtheria, Pertussis, Tetanus Vaccination: Yes - 2018 Review of Systems - Review of Systems Notes: REVIEW OF SYSTEMS GEN: Denies fever, chills, weight loss ENT: Denies sore throat, nasal discharge, ear pain EYES: Denies blurry vision, eye pain, discharg chest pain denies chest pain, palpitations, edema RESP: Denies cough, shortness of breath, wheezing GI: Denies abdominal pain, nausea, vomiting, diarrhea MSK: Denies joint pain/swelling, edema, SKIN: Denies rash, skin lesions LYMPH: Denies swollen glands/lymph nodes NEURO: Denies headache, focal weakness or numbness, dizziness PSYCH: Denies depression, suicidal or homicidal ideation PHYSICAL EXAMINATION General: No acute distress, well-nourished Head: Atraumatic, normocephalic ENT: Mouth normal, oropharynx moist, no exudates or tonsillar enlargement Eyes: Conjunctiva normal, pupils equal, lids normal Neck: No JVD, supple, no guarding CVS: Normal rate, regular rhythm, no murmurs Resp: No resp distress, equal and normal breath sounds bilaterally GI: Nondistended, soft, no tenderness to palpation, no rebound or guarding Ext: No deformities, no edema, normal range of motion in upper and lower ext Back: No CVA or midline TTP Skin: No rash, warm Lymphatic: No lymphadeopathy noted Neuro: Awake, alert. Face symmetric. GCS 15. Physical Exam - Vital signs Vitals: Resp Pulse Ox 16 91 L 04/20/20 22:42 04/20/20 22:42 Course - Re-evaluation Re-evalutation: 04/21/20 00:03 Patient presents with escalating chest pain which has some typical features but is not fully relieved with nitroglycerin. He has no EKG changes. Narcotics are required to make the pain 0 His troponin is negative after several days of pain, so I think this may reflect unstable angina, but more likely reflects non-cardiac chest pain. His heart score is 5, and he will require admission. I was discussed him with Dr. Rousseau from cardiology who agrees that he can be observed here overnight. He was a dmitted to Dr. Yeung who accepted. - Vital Signs Vital signs: Temp Pulse Resp BP Pulse Ox 98.1 F 15 134/65 H 96 04/20/20 22:43 04/20/20 23:41 04/20/20 23:41 04/20/20 23:41 - Laboratory Result Diagrams: 04/20/20 22:00 04/20/20 22:00 Laboratory results interpreted by me: 04/20/20 04/20/20 22:00 22:00 Hgb 9.0 L Hct 31.0 L MCV 68 L MCH 19.7 L MCHC 29.1 L RDW 19.1 H Plt Count 500 H Lymph % (Auto) 11.3 L Glucose 308 H - Diagnostic Test Radiology reviewed: Image reviewed, Reports reviewed - EKG Interpretation by Me EKG shows normal: Sinus rhythm Rate: Normal When compared to previous EKG there are: No significant change - No ST or T wave changes concerning for ischemia Discharge - Discharge Clinical Impression: Chest pain Qualifiers: Chest pain type: unspecified Qualified Code(s): R07.9 - Chest pain, unspecified Condition: Fair Disposition: ADMITTED OBSERVATION Admitting Provider: Gamal (Hospitalist) Unit Admitted: Telemetry Referrals: EUFEMIA VINCENT MD [ACTIVE STAFF] - Follow up as needed
[2020-04-20 22:55] LABS: ABSOLUTE EOSINOPHILS # (AUTO) 0.2 10^3/uL (0.0-0.6); ABSOLUTE MONOCYTES (AUTO) 0.8 10^3/uL (0.1-1.4); ABSOLUTE NEUT (AUTO) 6.7 10^3/uL (1.7-8.2); BASOPHILS % (AUTO) 0.5 % (0-2); EOSINOPHILS % (AUTO) 2.1 % (0-6); LYMPHOCYTES % (AUTO) 11.3 % (13-45); MEAN CORPUSCULAR HEMOGLOBIN 19.7 pg (27.0-33.4); MEAN CORPUSCULAR HGB CONC 29.1 g/dL (32.0-36.0); MEAN CORPUSCULAR VOLUME 68 fl (80-97); PLATELET COUNT 500 10^3/uL (150-450); RED BLOOD COUNT 4.58 10^6/uL (4.35-5.55); RED CELL DISTRIBUTION WIDTH 19.1 % (11.5-14.0); SEGMENTED NEUTROPHILS % (AUTO) 77.1 % (42-78); TOTAL CELLS COUNTED % (AUTO) 100 %; WHITE BLOOD COUNT 8.7 10^3/uL (4.0-10.5)
[2020-04-20 23:11] LABS: ANION GAP 8 (5-19); BLOOD UREA NITROGEN 10 mg/dL (7-20); CALCIUM 9.2 mg/dL (8.4-10.2); CARBON DIOXIDE 27 mmol/L (22-30); CHLORIDE 102 mmol/L (98-107); GLUCOSE 308 mg/dL (75-110); POTASSIUM 4.6 mmol/L (3.6-5.0)
--- NOTE | 2020-04-20 23:21 | RADIOLOGY REPORT (SQ) ---
EXAM DESCRIPTION: XR CHEST 1 VIEW COMPLETED DATE/TME: 04/20/2020 22:40 CLINICAL HISTORY: 59 years, Male, cp COMPARISON: Prior chest radiograph from 03/25/2020 NUMBER OF VIEWS: One TECHNIQUE: Single frontal view of the chest was obtained portably LIMITATIONS: None. FINDINGS: Cardiac and mediastinal contours are stable. Bilateral perihilar opacity with vascular indistinctness is noted. Interstitial lines are noted about the periphery of both lungs. No large pleural effusion or pneumothorax. IMPRESSION: Bilateral perihilar opacity with vascular indistinctness as well as interstitial lines about the periphery of both lungs. Overall, findings are most suspicious for mild interstitial edema. However, a viral pneumonitis could technically have this appearance. copyright 2010 [employer]- All Rights Reserved
[2020-04-20] MEDS ORDERED: FENTANYL CITRATE INJ/PF 100 MCG/2 ML AMPUL IV ONE (23:23)
[2020-04-20] MEDS ORDERED: MAG HYDROX/AL HYDROX/SIMETH SUSP 30 ML UDCUP PO PRN (23:54)
[2020-04-20] MEDS ORDERED: ACETAMINOPHEN 325 MG TABLET PO PRN (23:54)
[2020-04-20] MEDS ORDERED: DEXTROSE 50%-WATER 25 GM/50 ML DISP.SYRIN IV PRN ×2 (23:57)
[2020-04-20] MEDS ORDERED: DEXTROSE 40% GEL 15 GM TUBE PO PRN ×2 (23:57)
[2020-04-20] MEDS ORDERED: GLUCAGON,HUMAN RECOMB 1 MG INJ IM PRN (23:57)
[2020-04-21] MEDS: INSULIN LISPRO 100 UNIT/ML 3 ML VIAL SUBCUT SCH ×2 (00:24→06:21)
[2020-04-21 00:36] LABS: IRON(TIBC) 22.2 ug/dL (49-181)
[2020-04-21 00:39] LABS: ABSOLUTE RETICS # 0.098 10^6/uL (0.028-0.122); RETICULOCYTE COUNT (AUTO) 2.15 % (0.66-2.85)
[2020-04-21 01:14] LABS: FERRITIN 6.56 ng/mL (17.9-464.0)
--- NOTE | 2020-04-21 04:26 | PDOC H&P ---
History of Present Illness Admission Date/PCP: 04/21/20 00:10 THA BROWN MD Patient complains of: Chest pain History of Present Illness: KRISTIAN QUIÑONEZ is a 59 year old male with a past medical history of coronary artery disease clamming 11 coronary artery stents, diabetes, hypertension, COPD, anemia, tobacco dependence and obstructive sleep apnea. He presents with left- sided pressure-like pain radiating to the left arm and hand occurring at rest not associated with shortness of breath palpitations nausea vomiting or diaphoresis. He denies improvement with nitroglycerin requesting fentanyl. He is currently pain-free and initial work-up is unremarkable with exception to microcytic anemia with a hemoglobin of 9. He denies dark-colored stool, he can not recall his last A1c or glucometer check. His last cardiac stress test was approximately 1 year ago. Past Medical History Cardiac Medical History: Reports: Coronary Artery Disease, Myocardial Infarction - X4, 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, Hypertension Pulmonary Medical History: Reports: Bronchitis, Chronic Obstructive Pulmonary Disease (COPD), Pneumonia Endocrine Medical History: Reports: Diabetes Mellitus Type 1, Diabetes Mellitus Type 2 Musculoskeltal Medical History: Reports: Arthritis Psychiatric Medical History: Reports: Tobacco Dependency Denies: Depression Hematology: Reports: Anemia - RECENT IRON INFUSIONS Past Surgical History Past Surgical History: Reports: Appendectomy, Cardiac Catheterization - 11 stents, Coronary Stent - x 11, Orthopedic Surgery - carpal tunnel release right hand, Tonsillectomy Social History Information Source: Patient Lives with: Spouse/Significant other Smoking Status: Current Every Day Smoker Frequency of Alcohol Use: Rare Hx Recreational Drug Use: Yes Drugs: None - Advance Directive Resuscitation Status: Full Code Family History Family History: CAD - Father and grandparents had CAD, Hypertension Parental Family History Reviewed: Yes Children Family History Reviewed: Yes Sibling(s) Family History Reviewed.: Yes Medication/Allergy Home Medications: Atenolol 50 mg PO DAILY 02/21/18 Atorvastatin Calcium 80 mg PO DAILY 02/21/18 Duloxetine HCl 60 mg PO Q12 02/21/18 Glipizide 10 mg PO BID 02/21/18 Metformin HCl 1,000 mg PO BIDBS 02/21/18 Pantoprazole Sodium [Protonix] 40 mg PO DAILY 02/21/18 Ranolazine [Ranexa 500 mg Tab.sr] 500 mg PO Q12 02/21/18 Tiotropium Rush [Spiriva Handihaler 18 mcg/dose (30 Dose)] 1 tab IH DAILY 02/21/18 Tizanidine HCl 4 mg PO Q8HP PRN 02/21/18 Trazodone HCl 100 mg PO QHS 02/21/18 Albuterol Sulfate [Albuterol Sulfate Hfa] 2 puff IH Q6HP PRN 06/09/19 Aspirin [Ecotrin 81 mg EC Tablet] 81 mg PO DAILY 06/09/19 Ferrous Sulfate [Feosol 325 mg Tablet] 325 mg PO BID 06/09/19 Fluticasone Propionate [Flonase Nasal [place] 50 Mcg/Gen[place] 16 gm] 1 spray NAREB Q12 06/09/19 Gabapentin [Neurontin 300 mg Capsule] 900 mg PO Q6 06/09/19 Insulin Glargine,Hum.rec.anlog [Lantus Insulin 100 Unit/1 ml 10 ml] 55 unit SUBCUT QHS 06/09/19 Isosorbide Mononitrate [Imdur 30 mg Tablet.er] 30 mg PO DAILY 06/09/19 Varenicline Tartrate [Chantix 1 mg Tablet] 1 mg PO Q12 06/09/19 Acetaminophen [Tylenol 325 mg Tablet] 650 mg PO Q4HP PRN tablet 06/10/19 Cyanocobalamin (Vitamin B-12) [Vitamin B-12] 1,000 mcg PO DAILY #30 capsule 06/10/19 Ferrous Sulfate [Feosol 325 mg Tablet] 325 mg PO BIDPCBS tablet 06/10/19 Clindamycin HCl 300 mg PO TID #30 capsule 08/10/19 Naproxen 500 mg PO BID PRN #14 tablet 08/10/19 Allergies/Adverse Reactions: clopidogrel [From Plavix] Allergy (Verified 04/02/20 13:10) coconut Allergy (Verified 04/02/20 13:10) hydrocodone [From Vicodin] Allergy (Verified 04/02/20 13:10) strawberry Allergy (Verified 04/02/20 13:10) Sulfa (Sulfonamide Antibiotics) Allergy (Verified 04/02/20 13:10) Review of Systems Constitutional: ABSENT: chills, fever(s), headache(s), weight gain, weight loss Eyes: ABSENT: visual disturbances Ears: ABSENT: hearing changes Cardiovascular: ABSENT: chest pain, dyspnea on exertion, edema, orthropnea, palpitations Respiratory: ABSENT: cough, hemoptysis Gastrointestinal: ABSENT: abdominal pain, constipation, diarrhea, hematemesis, hematochezia, nausea, vomiting Genitourinary: ABSENT: dysuria, hematuria Musculoskeletal: ABSENT: joint swelling Integumentary: ABSENT: rash, wounds Neurological: ABSENT: abnormal gait, abnormal speech, confusion, dizziness, focal weakness, syncope Psychiatric: ABSENT: anxiety, depression, homidical ideation, suicidal ideation Endocrine: ABSENT: cold intolerance, heat intolerance, polydipsia, polyuria Hematologic/Lymphatic: ABSENT: easy bleeding, easy bruising Physical Exam Vital Signs: Temp Pulse Resp BP Pulse Ox 98.1 F 71 22 H 133/66 H 93 04/20/20 22:43 04/21/20 03:13 04/21/20 02:00 04/21/20 01:01 04/21/20 02:00 Intake & Output 04/19/20 04/20/20 04/21/20 11:59 11:59 11:59 Weight 92.079 kg General appearance: PRESENT: no acute distress, well-developed, well-nourished Head exam: PRESENT: atraumatic, normocephalic Eye exam: PRESENT: conjunctiva pink, EOMI, PERRLA. ABSENT: scleral icterus Ear exam: PRESENT: normal external ear exam Mouth exam: PRESENT: moist, tongue midline Neck exam: ABSENT: carotid bruit, JVD, lymphadenopathy, thyromegaly Respiratory exam: PRESENT: clear to auscultation vera. ABSENT: rales, rhonchi, wheezes Cardiovascular exam: PRESENT: RRR. ABSENT: diastolic murmur, rubs, systolic murmur Pulses: PRESENT: normal dorsalis pedis pul Vascular exam: PRESENT: normal capillary refill GI/Abdominal exam: PRESENT: normal bowel sounds, soft. ABSENT: distended, guarding, mass, organolmegaly, rebound, tenderness Rectal exam: PRESENT: deferred Extremities exam: PRESENT: full ROM. ABSENT: calf tenderness, clubbing, pedal edema Neurological exam: PRESENT: alert, awake, oriented to person, oriented to place, oriented to time, oriented to situation, CN II-XII grossly intact. ABSENT: motor sensory deficit Psychiatric exam: PRESENT: appropriate affect, normal mood. ABSENT: homicidal ideation, suicidal ideation Skin exam: PRESENT: dry, intact, warm. ABSENT: cyanosis, rash Results Laboratory Results: 04/20/20 22:00 04/20/20 22:00 04/20/20 04/20/20 04/20/20 22:00 22:00 22:00 WBC 8.7 RBC 4.58 Hgb 9.0 L Hct 31.0 L MCV 68 L MCH 19.7 L MCHC 29.1 L RDW 19.1 H Plt Count 500 H Seg Neutrophils % 77.1 Retic Count (auto) 2.15 Sodium 137.1 Potassium 4.6 Chloride 102 Carbon Dioxide 27 Anion Gap 8 BUN 10 Creatinine 0.70 Est GFR ( Amer) > 60 Glucose 308 H Calcium 9.2 Iron TIBC % Saturation Transferrin Ferritin Vitamin B12 Folate TSH 04/20/20 04/20/20 04/20/20 22:00 22:00 22:00 WBC RBC Hgb Hct MCV MCH MCHC RDW Plt Count Seg Neutrophils % Retic Count (auto) Sodium Potassium Chloride Carbon Dioxide Anion Gap BUN Creatinine Est GFR ( Amer) Glucose Calcium Iron 22.2 L TIBC 471 H % Saturation 5 Transferrin 397.77 H Ferritin 6.56 L Vitamin B12 319.0 Folate 14.00 TSH 5.50 H 04/20/20 22:00 Troponin I < 0.012 Impressions: Chest X-Ray 04/20/20 22:40 IMPRESSION: Bilateral perihilar opacity with vascular indistinctness as well as interstitial lines about the periphery of both lungs. Overall, findings are most suspicious for mild interstitial edema. However, a viral pneumonitis could technically have this appearance. copyright 2010 [email or web address]- All Rights Reserved Assessment and Plan - Diagnosis (1) Chest pain Qualifiers: Chest pain type: unspecified Qualified Code(s): R07.9 - Chest pain, unsp ecified Is this a current diagnosis for this admission?: Yes Plan: Atypical chest pain though the patient's pain is atypical there are multiple risk factors for coronary artery disease and subsequently will observe and evaluation of acute coronary syndrome versus coronary artery disease with anginal equivalents. Cardiac monitoring blood pressure Q6 hours ,TSH, lipid profile, serial cardiac enzymes and cardiac stress test (2) Anemia Is this a current diagnosis for this admission?: Yes Plan: Appears iron deficient with microcytic indices and elevated platelet, iron in itiated empirically, follow-up labs. (3) GERD (gastroesophageal reflux disease) Is this a current diagnosis for this admission?: Yes Plan: Esophageal spasm differential to #1, proton pump inhibitor (4) DEIRDRE (obstructive sleep apnea) Is this a current diagnosis for this admission?: Yes Plan: Refuses BiPAP (5) Tobacco abuse Is this a current diagnosis for this admission?: Yes Plan: Tobacco cessation counseling performed and nicotine replacement options discussed. - Time Time Spent with patient: 25-34 minutes - Inpatient Certification Medical Necessity: Need Close Monitoring Due to Risk of Patient Decompensation
--- NOTE | 2020-04-21 07:18 | EKG REPORT ---
SEVERITY:- BORDERLINE ECG - SINUS RHYTHM : Confirmed by: Hai Calhoun MD 21-Apr-2020 07:17:59
[2020-04-21 09:09] LABS: CHOLESTEROL 89.45 mg/dL (0-200); TRIGLYCERIDES 89 mg/dL (<150)
[2020-04-21 09:20] LABS: DIRECT LDL 57 mg/dL (<100)
[2020-04-21 09:29] LABS: FREE T3 3.69 pg/mL (2.77-5.27); FREE T4 (FREE THYROXINE) 1.01 ng/dL (0.78-2.19)
[2020-04-21] MEDS ORDERED: ASPIRIN 81 MG TABLET, ENT COATED PO SCH (10:00)
[2020-04-21] MEDS ORDERED: IRON SUCROSE COMPLEX 300 MG in NORMAL SALINE 250 ML IV SCH (10:00)
[2020-04-21] MEDS ORDERED: IRON SUCROSE COMPLEX INJ/PF 100 MG/5 ML SDV IV SCH (10:00)
[2020-04-21] MEDS ORDERED: IRON POLYSACCHARIDES COMPLEX 150 MG CAPSULE PO SCH (10:00)
[2020-04-21] MEDS ORDERED: INSULIN LISPRO 100 UNIT/ML 3 ML VIAL SUBCUT SCH (11:00)
[2020-04-21] MEDS ORDERED: HEPARIN SODIUM,PORCINE/D5W 25,000 UNIT/250 ML RTUINJ IV PRN (11:49)
[2020-04-21 12:43] VITALS: BP 132/75
--- NOTE | 2020-04-21 12:54 | EKG REPORT ---
SEVERITY:- OTHERWISE NORMAL ECG - SINUS RHYTHM : Confirmed by: Hai Calhoun MD 21-Apr-2020 12:53:12
[2020-04-21 13:06] LABS: PROTHROMBIN TIME 14.3 SEC (11.4-15.4)
[2020-04-21 13:07] LABS: PARTIAL THROMBOPLASTIN TIME 31.9 SEC (23.5-35.8)
[2020-04-21] MEDS ORDERED: ALBUTEROL SULFATE 0.083% NEB 2.5 MG/3 ML AMPUL NEB PRN (13:48)
[2020-04-21] MEDS ORDERED: TIZANIDINE HCL 4 MG TABLET PO PRN (13:48)
[2020-04-21] MEDS ORDERED: ISOSORBIDE MONONITRATE 30 MG TAB.ER.24H PO SCH (14:30)
[2020-04-21] MEDS ORDERED: GLIPIZIDE 10 MG TABLET PO SCH (14:30)
[2020-04-21] MEDS ORDERED: HEPARIN SOD (PORCINE) 1,000 UNIT/ML 10 ML VIAL IV PRN (14:51)
--- NOTE | 2020-04-21 16:23 | Progress Note ---
Provider Note Provider Note: Patient having chest pain this morning. Troponin done to increase from <0.012 to 0.07--0.20--0.226. Was started on heparin drip IV. Discussed with Dr. Mccloud who recommends transfer to tertiary facility for left heart catheterization especially given that he had a stress test done in August 2019 which did show evidence of ischemic disease. I have resumed patient's Imdur, and aspirin. I have discussed with orthopaedic doctor Dr. Magdy Rdz at [facility] who states that patient can be transferred over tomorrow morning and he will perform a left heart catheterization around noon tomorrow at [facility].
--- NOTE | 2020-04-21 17:37 | Left Against Medical Advice ---
Against Medical Advice Admission Date/Time: 04/21/20 00:10 Primary Care Provider: THA BROWN MD Date of Patient Emigration: 04/21/20 - Diagnosis: (1) NSTEMI (non-ST elevated myocardial infarction) Is this a current diagnosis for this admission?: Yes (3) Tobacco abuse Is this a current diagnosis for this admission?: Yes (4) GERD (gastroesophageal reflux disease) Is this a current diagnosis for this admission?: Yes - Summary: Summary: Please see Admission and Progress Notes as well. KRISTIAN QUIÑONEZ is a 59 M, who LEFT AGAINST MEDICAL ADVICE. The Patient was admitted on 04/21/20 00:10 for evaluation of chest pain. Patient's troponin started to trend up and was started on heparin drip with suspicion of NSTEMI. Discussed with Dr. Mccloud who recommended transfer for left heart catheterization. Called [facility] where patient was accepted. However patient decided to leave AMA. I had a very long elaborate conversation with patient about his current condition and the significant risks of poor and adverse outcomes arising from him leaving AMA including possibility of or major cardiac event but patient still insisted to leave AMA because he was not allowed to smoke while in the hospital. I offered nicotine patch but patient refused and stated that he wanted to leave.
[2020-04-21] MEDS ORDERED: GABAPENTIN 300 MG CAPSULE PO SCH (18:00)
[2020-04-21] MEDS ORDERED: INSULIN GLARGINE,HUM.REC.ANLOG 1,000 UNIT/10 ML VIAL SUBCUT SCH (22:00)
[2020-04-21] MEDS ORDERED: FLUTICASONE NASAL SPRAY 50 MCG/SPRY 120 SPRAY/16 GM NASL SCH (22:00)
[2020-04-21] MEDS ORDERED: DULOXETINE HCL 30 MG CAPSULE.DR PO SCH (22:00)
[2020-04-21] MEDS ORDERED: ATORVASTATIN CALCIUM 80 MG TABLET PO SCH (22:00)
[2020-04-21] MEDS ORDERED: TRAZODONE HCL 50 MG TABLET PO SCH (22:00)
[2020-04-21] MEDS ORDERED: RANOLAZINE 500 MG TAB.SR.12H PO SCH (22:00)
[2020-04-22] MEDS ORDERED: PANTOPRAZOLE SODIUM 40 MG PACKET.DR PO SCH (06:00)
[2020-04-22] MEDS ORDERED: FLUTICASONE/UMECLIDIN/VILANTER 100-62.5-25 MCG/DOSE IH SCH (10:00)
[2020-04-22] MEDS ORDERED: ATENOLOL 50 MG TABLET PO SCH (10:00)
[2020-04-22] MEDS ORDERED: FUROSEMIDE 20 MG TABLET PO SCH (10:00)
== END 2020-04-21 17:27 | disposition left against medical advice (07) ==
LOC: ER 22:33 → EH 04-21 00:10 → 4W 04-21 03:10
PROVIDERS: ADMIT Internal Medicine; ATTEND Internal Medicine
DX: I21.4 Non-ST elevation (NSTEMI) myocardial infarction (principal); F17.200 Nicotine dependence, unspecified, uncomplicated; K21.9 Gastro-esophageal reflux disease without esophagitis; I25.10 Atherosclerotic heart disease of native coronary artery without angina pectoris; D50.9 Iron deficiency anemia, unspecified; I10 Essential (primary) hypertension; J44.9 Chronic obstructive pulmonary disease, unspecified; G47.33 Obstructive sleep apnea (adult) (pediatric); I25.2 Old myocardial infarction; E11.9 Type 2 diabetes mellitus without complications; Z95.5 Presence of coronary angioplasty implant and graft; Z82.49 Family history of ischemic heart disease and other diseases of the circulatory system; Z79.899 Other long term (current) drug therapy; Z79.82 Long term (current) use of aspirin; Z79.84 Long term (current) use of oral hypoglycemic drugs; Z53.29 Procedure and treatment not carried out because of patient's decision for other reasons; Z88.8 Allergy status to other drugs, medicaments and biological substances
CPT/HCPCS: 93005 ×2; 99285; 96374; 36415 ×2; 84439; 82962; 82607; 82728; 82746; 83540; 83550; 84443; 85025; 85610; 85730; 85045; 80048; 84484 ×2; 84481; 83036; 84466; 80061; 71045; 93010 ×2; J1644 ×2; A9270 ×7; J1756; J3010; J3490; J7050; J1815

== ENCOUNTER → 2020-09-17 | Outpatient (CLI) | payer MEDICARE, MEDICAID ==
[2020-09-17 12:21] LABS: HEMATOCRIT 21.1 % (37.9-51.0); MEAN CORPUSCULAR HEMOGLOBIN 17.4 pg (27.0-33.4); MEAN CORPUSCULAR HGB CONC 28.6 g/dL (32.0-36.0); PLATELET COUNT 457 10^3/uL (150-450); RED BLOOD COUNT 3.48 10^6/uL (4.35-5.55); RED CELL DISTRIBUTION WIDTH 23.1 % (11.5-14.0); WHITE BLOOD COUNT 5.3 10^3/uL (4.0-10.5)
[2020-09-17 13:13] LABS: FERRITIN 4.64 ng/mL (17.9-464.0)
[2020-09-17 13:44] LABS: MEAN CORPUSCULAR VOLUME 61 fl (80-97)
[2020-09-17 13:46] LABS: IRON(TIBC) < 10.1 ug/dL (49-181)
[2020-09-17 13:52] LABS: HYPOCHROMASIA SLIGHT; POLYCHROMASIA SLIGHT
[2020-09-17 13:53] LABS: ANISOCYTOSIS 3+; OVALOCYTES 1+; PLATELET COMMENT ADEQUATE; POIKILOCYTOSIS 1+
[2020-09-18 13:00] LABS: PATH REVIEW PATHOLOGIST REVIEWED
--- OUTSIDE RECORDS SUMMARY | 2020-09-18 15:22 | XMS REPORT ---
:1960 Author [facility] [address] [place] [address] Care Team Providers Name Role Phone JOSE TITUS Primary Care Physician Unavailable FANNY MOJICA Attending Clinician Unavailable LUZ MARIA HERNANDEZ Attending Clinician Unavailable DANG MARTINEZ Attending Clinician Unavailable Dorinda MOSES Attending Clinician Unavailable ADELFO JONES Attending Clinician Unavailable FANNY MOJICA Admitting Clinician Unavailable SAMANTHA RANDALL Admitting Clinician Unavailable Allergies, Adverse Reactions, Alerts Allergy Allergy Status Severity Reaction(s) Onset Inactive Treating C omments Name Type Date Date Clinician Ciprofloxa Propensity Inactive High Shortness Of ezekiel to adverse Breath 4-11 reactions 00:00: 00 Julian Propensity Inactive Other (See H yperkalem Inhibitors to adverse Comments) 02-03 ia reactions 00:00: 00 Clopidogre Propensity Inactive Other (See Pt reports l to adverse Comments) - it gives reactions 00:00: him to drug 00 heartbur n Sulfa Propensity Inactive Other (See 2015-11 S JOSE A (Sulfonami to adverse Comments) 1-17 CHILD de reactions 00:00: Antibiotic 00 s) Sulfa Propensity Active Other (See 2015-11 SI NCE A (Sulfonami to adverse Comments) 1-17 CHILD de reactions 00:00: Antibiotic 00 s) Coconut Propensity Active Other (See ot her to adverse Comments) 7-11 reactions 00:00: 00 [place] Propensity Active High Swelling to adverse 4-04 reactions 00:00: 00 Hydrocodon Propensity Active Low Nausea And e to adverse Vomiting 4-06 reactions 00:00: 00 Sulfabenza Propensity Active Ot her mide to adverse 4-06 react ion(s reactions 00:00: ): HIV ES 00 Medications Ordered Filled Start Stop Current Ordering Indication Dosage Frequency Signature Comments Components Medication Medication Date Date Medication? Clinician (SIG) Name Name tiotropium 2016- 18ug Place 18 Place 18 (SPIRIVA) - 01-10 mcg into mcg int o 18 mcg 14:30: 00:00 inhaler inhaler inhalation 08 :00 and inhale and capsule daily. inhale daily. varenicline 2015-11 1mg Take 1 mg Mark e 1 mg (CHANTIX) 1 12-25 by mouth by mo uth mg tablet 13:00: 00:00 Two (2) Two (2) 04 :00 times a times a day. day. iopamidol 2015-11 150mL 150 mL, (ISOVUE-300 12-08 Intravenou ) 61 % 10:25: 10:31 s, Once in injection 15 :00 imaging, 150 mL contrast, Starting 10/07/16 at 1025, For 1 dose
Ro utine diatrizoate 2015-11 20mL 20 mL, meglumine-s 12-08 Oral, odium 10:00: 10:07 Once, Fri (GASTROGRAF 00 :00 10/07/16 at IN) 66-10 % 1000, For solution 20 1 mL dose
*D ilute In Appropriat e Amount of Fluid*< br>Routine ranolazine 2015-11 500mg Take 1 Take 1 (RANEXA) 12-04 02-10 tablet tablet 500 MG 12 00:00: 00:00 (500 mg (500 mg hr tablet 00 :00 total) by total) by mouth Two mouth Two (2) times (2) times a day. a day. ZETIA 10 mg 2015-11- TAKE ONE TAKE ONE tablet 11-26 02-10 TABLET BY TABLET BY 00:00: 00:00 MOUTH MOUTH 00 :00 EVERY DAY EVERY DAY omeprazole 2015-11 TAKE ONE TAKE ONE (PRILOSEC) 11-22 04-12 CAPSULE BY CAPS ULE 40 MG 00:00: 00:00 MOUTH BY MOUTH capsule 00 :00 TWICE TWICE DAILY DAILY UNIFINE 2015-11- USE USE PENTIPS 32 1-10 08-15 DIRECTED DIRECT ED gauge x 00:00: 00:00 EVERY DAY EVERY D AY 32" Ndle 00 :00 albuterol 2015-11 2{puff} Inhale 2 Inha le 2 (PROAIR 11-13 01-03 puffs puffs HFA) 90 00:00: 00:00 every six every s ix mcg/actuati 00 :00 (6) hours (6) hours on inhaler as needed as ne eded for for wheezing. wheezing. metFORMIN 2015-11 TAKE ONE TAKE O NE (GLUCOPHAGE 11-12 TABLET TABLET ) 1000 MG 00:00: 00:00 TWICE TWICE tablet 00 :00 DAILY DAILY albuterol 2015-11 INHALE 3ML INHA LE 2.5 mg /3 11-12 BY 3ML BY mL (0.083 00:00: 00:00 NEBULIZATI NEBU LIZAT %) 00 :00 ON EVERY 6 ION EVERY nebulizer HOURS 6 HOURS solution NEEDED FOR NEE DED WHEEZING FOR WHEEZING carvedilol 2015-11 TAKE ONE TAKE ONE (COREG) 11-12 TABLET BY TABLET B Y 12.5 MG 00:00: 00:00 MOUTH MOUTH tablet 00 :00 TWICE TWICE DAILY DAILY methocarbam 2015-11 Take 1 Take 1 ol 11-12 tablet tablet (ROBAXIN) 00:00: 00:00 (500 mg (500 mg 500 MG 00 :00 total) by total) by tablet mouth mouth Three (3) Three (3) times a times a day. day. ferrous 2015-11 325mg Take 1 Take 1 sulfate 325 015 02-10 tablet tablet (65 FE) MG 00:00: 00:00 (325 mg (325 m g tablet 00 :00 total) by total) by mouth mouth daily with daily breakfast. with breakfast . DULoxetine Take 1 Take 1 (CYMBALTA) 07-05 02-10 capsule capsule 30 MG 00:00: 00:00 (30 mg (30 mg capsule 00 :00 total) by total) b y mouth Two mouth Two (2) times (2) times a day. a day. isosorbide Acute 30mg Take 1 Take 1 mononitrate 18 02-10 coronary tablet (30 tablet (IMDUR) 30 00:00: 00:00 syndromes mg total) (30 mg MG 24 hr 00 :00 (CMS-HCC) by mouth tota l) by tablet daily. mouth daily. lisinopril 2016- No TAKE 1 TAKE 1 (PRINIVIL,Z 06-21 0209 tablet (5 tabl et (5 ESTRIL) 5 00:00: 00:00 MG total) MG to dl) MG tablet 00 :00 by MOUTH by MOUT H daily daily sitaGLIPtin No 100mg Take 1 Take 1 (JANUVIA) 06-20 02 tablet tablet 100 MG 00:00: 00:00 (100 mg (100 mg tablet 00 :00 total) by total) by mouth mouth daily. daily. glipiZIDE 10mg Take 1 Take 1 (GLUCOTROL) 06-18 tablet (10 tab let 10 MG 00:00: 00:00 mg total) (10 mg tablet 00 :00 by mouth total) by Two (2) mouth Two times a (2) times day (30 a day (30 minutes minutes before a before a meal). meal). traZODone TAKE ONE TAKE O NE (DESYREL) 06-07 TABLET BY TABLET BY 100 MG 00:00: 00:00 MOUTH AT MOUTH AT tablet 00 :00 BEDTIME BEDTIME gabapentin Type 2 100mg Take 1 Take 1 (NEURONTIN) 05-05 diabetes capsule cap rolo 100 MG 00:00: 00:00 mellitus (100 mg (100 mg capsule 00 :00 without total) by total) by complicatio mouth Four [place] th n ([facility]) (4) times Four (4) a day. times a day. nitroglycer 2016- No 1{spray Place 1 Lakeisha ce 1 in 04-26 } spray spray (NITROLINGU 00:00: 23:59 under the und er the AL) 0.4 00 :00 tongue tongue mg/dose every five every spray (5) five (5) minutes as minutes needed for as needed chest for chest pain. pain. SURE Yes SURE COMFORT PEN 6-11 COMFORT NEEDLE 31 00:00: PEN NEEDLE gauge x 00 31 gauge x 3/16" Ndle 3/16" Ndle gabapentin 2016- No TAKE ONE TAKE ONE (NEURONTIN) 04-06 TABLET BY TABL ET BY 800 MG 00:00: 00:00 MOUTH FOUR MOUTH tablet 00 :00 TIMES FOUR DAILY TIMES DAILY EFFIENT 10 2015- No 10mg Take 10 mg Mark e 10 mg tablet 04-05 by mouth mg by 00:00: 00:00 daily. mouth 00 :00 daily. atorvastati TAKE ONE TAKE ONE n (LIPITOR) 03-10 TABLET TABLET 40 MG 00:00: 00:00 EVERY DAY EVERY DAY tablet 00 :00 back brace Yes Midline low 1{each} 1 each by 1 each by Misc 02-24 back pain Miscellane Misce llan 00:00: without ous route eous 00 sciatica daily at route 0600. daily at 0600. leg brace Yes Right knee 1{each} 1 each b y 1 each by (KNEE 02-24 pain Miscellane Miscellan BRACE) Misc 00:00: ous route eou s 00 daily at route 0600. daily at 0600. insulin 2016- DM 45U Inject Inject glargine 02-07 0510 (diabetes 0.45 mL 0.45 mL (LANTUS) 00:00: 00:00 mellitus (45 Units (45 Units 100 unit/mL 00 :00 screen) total) total ) (3 mL) under the under the injection skin skin pen nightly. nightly. aspirin 2011-11 81mg Take 81 mg Take 8 1 (ASPIR-LOW) 11-26 by mouth mg by 81 MG 00:00: 00:00 daily at mouth tablet 00 :00 0600. daily at 0600. Problems Condition Condition Condition Status Onset Resolution Last Treatin g Comments Name Details Category Date Date Treatment Clinician Date Biliary Biliary Condition Inactiv 2017-05-10 Ove rview: dyskinesia dyskinesia e 04-04 13:15:04 H e went 00:00: for HIDA 00 that showed Decrease d gallblad d er ejection fraction of 12%. He was evaluate d by surgery for elective cholecys t ectomy but surgery has been postpone until he has been on Effient for at least 6 month since placemen t of most recent PCI ( done 12/2016) he reports abdomina l pain jose t is worse with food. He states pain is better with eating ice cream. Last Assessme n t & Plan : I discus s the importan c e of avoiding foods that are high in fats. He likely has gastriti s that is improved with ice cream though diary ma y also aggravat e gallblad d er pain. Umbilical Umbilical Condition Inactiv 2017-04-04 hernia hernia e 04-04 15:59:53 without without 00:00: obstruction obstruction 00 and without and without gangrene gangrene Dysuria Dysuria Condition Inactiv 2017-02-05 Ove rview: e 02-05 19:45:54 He 00:00: reports 00 burning with urinatio n present for more than 1 week. He also notes weaker stream. He denie s hematuri a . Last Assessme n t & Plan : Urine dipstick shows positive for glucose and positive for nitrates . Micro exam: no t done. Culture showed normal marian. Given hi s symptoms and presence of nitrites will treat empirica l ly for UTI. Diabetes Diabetes Condition Inactiv 2017-05-10 O verview: mellitus mellitus e 02-05 10:50:19 Forma ttin ([facility]) ([facility]) 00:00: g of this 00 note may be differen t from the original . The patient was diagnose d several years ago. he is takin g Metformi n ,and Januvia and Lantus Glipizid e . he has not been to ophthalm o [facility]. he has neve r had foot exam. he is checking glucose 2 times a day. Glucose range from 65-175. he reports abdomina l pain, polyuria denies nausea, vomiting , diarrhea , polydips i a. he denies hypoglyc e stu. he has not been to diabetes educatio n . he is not followin g diabetic diet. he is not requesti n g diabetic testing supplies . he reports neuropat h y He is taking 45U Lantus qhs. He is takin g 10mg glipizid e and Metformi n . He denies any nausea vomiting or diarrhea . States h e was on 900 four times a day of Gabapent i n in the past and sinc e he was reduced his symptoms have worsened . He has met with Pharm D who suggeste d that his Sitaglip i tin may no longe r be covered by patient' s insuranc e . switchin g to linaglip t in after assessme n t of BG control Lab Results Componen t Value Date A1C 7.8* 03/28/20 1 7 Last Assessme n t & Plan : diabetes is worsenin g . Will increase Lantus t o 55U. I discusse d that whe n he is dealing with nova n or stres s it will increase glucose. Pt with hypergly c emia (glucose 465) today. H bird was give n 5U of regular insulin with improvem e nt in glucose to 317. He is encourag e d to get annual eye exam as soon as possible Encounter Encounter Condition Inactiv 2017-02-05 for for e 02-05 20:11:16 screening screening 00:00: for for 00 malignant malignant neoplasm of neoplasm of prostate prostate Neuropathy Neuropathy Condition Inactiv 2017-01-02 Last e 01-02 13:12:36 Assessm en 00:00: t & Plan : 00 Neuropat h ic pain is currentl y improvin g since Cymbalta dose increase per Patient reported absence of symptoms includin g Burning, Constant pain primaril y localize d to hands and feet . Reflecti v e of treatmen t with Gabapent i n and Cymbalta . Continue current regimen Stressed compldameon pang to nova n regimen and sharon ch treatmen t of symptoms to stay on top o f pain. Recommen d routine monitori n g of BG to get diabetes controll e d, which may help with neuropat h ic symptoms . Stable Stable Condition Inactiv 2016-12-29 Ove rview: angina angina e 12-29 09:49:14 outpt s /p ([facility]) ([facility]) 00:00: posi tive 00 myocardi a l perfusio n scan las t week. He underwen t LHC and PCI to RCA. His observat i on perio d was unremark a ble with the exceptio n of indigest i on/heart b urn afte r receivin g a Plavix load. He was treated initiall y with Maalox and Tums though his discomfo r t persiste d and foun d best treated with Carafate . VS an d labs remained stable. He will continue with aggressi v e CV therapie s includin g ASA, statin, BB, zetia, imdur, ranexa, Effient as he wa s on this previous l y. We have written for Carafate and advised that he follow u p with Dr Mojica in the near future a s he reports missing his recent follow u p with her. Debbie pang will be referred to cardiac rehab. He will f/u with Dr. Heidi baumann in 3-4 weeks. Debbie pang is takin g carafate as directly he doesn't have latosha t with GI yet. He had an episode of chest pain wit h exertion about 3 days after th e PCI was placed. He denie s any addition a l chest pain since then. He reports his [employer] company will no longer cover effient. He can't take plavix because it cause GIB and gastriti s . Last Assessme n t & Plan : Disease is improved . Sent a message to cardiolo pastor ch about other options for antiplat e let therapy. He will have to pay out of [employer] or he lópez y be able to switc h to [facility] for less cost. DEIRDRE DEIRDRE Condition Inactiv 2016-12-29 Ove rview: (obstructiv (obstructiv e 12-29 09:53:51 He e sleep e sleep 00:00: reports apnea) apnea) 00 for year s he wakes up at night "fightin g for air" he reports that in the hospital he was woken by rn because of his oxygen dropping too low. He reports daytime fatigue and sleepine s s. He falls asleep often while sleeping . His complain s that he snores. Last Assessme n t & Plan : He has obstruct i ve sleep apnea document e d by sleep study. Debbie pang had CPAP titratio n but results not availabl e at this time devi zambrano request results and fax to medical supply store so the patient can get CPAP initiate d . Chest pain Chest pain Condition Inactiv 2016-2016-12-15 e 12-15 18:33:11 00:00: 00 Epigastric Epigastric Condition Inactiv [id number] Overview: pain pain e 01-01 09:43:33 Onset 00:00: several 00 months ago but has been worsenin g over the past few weeks. Debbie pang has a history of heme positive stool. Prior EG D and colonosc o py did not reveal source o f bleeding . He saw his GI doctor who did pill endoscop y on 10/04/16 . The results are pending at this time. He reports pain the is in epigastr i c region . He denie s vomiting but has some nausea. He denie s diarrhea or blood in stool . He denie s a histor y of H pylori infectio n or testing. He had pill cam done but it was t o "cloudy" to make a diagnosi s and woul d like to do it again. Debbie pang continue to have epigastr i c pain. He reports every time he eat he gets shortnes s of breat h and belching more. He had HIDA scan jose t was abnormal . He will go for cholecys t ectomy soon. Last Assessme n t & Plan : Currentl y uncontro l led base d on presence of symptoms includin g regurgit a tion. Reflecti v e of treatmen t with omeprazo l e (Prilose c ) and sucralfa t e. Exacerba t ing factors include: caffeine and larg e meals. Goal is to improve symptoms and limi t complica t ions. Of note, patient has not started sucralfa t e therapy. Continue current regimen. Can consider ranitidi n e in the for unresolv e d symptoms . Consider suppleme n tation with Calcium Citrate + Vitamin D Discusse d nonpharm a cologic treatmen t s includin g : caffeine reductio n , dietar y changes Patient to have cholecys t ectomy, which ma y resolve symptoms . Anemia, Anemia, Condition Active 2015-2016-09-26 Ove rview: splenic splenic -18 09:11:56 He has 00:00: had left 00 upper quadrant pain for the past few weeks. Debbie pang reports left sided chest an d abdomina l pain. He reports it is differen t cardiac pain. Th e pain doesn't affect the left arm. The pain is a dull ache. He reports a history of pleurisy . He denie s dark colored urine. Debbie pang denies light headedne s s or dizzines s . He reports dark stools but relates it to iron. Last Assessme n t & Plan : Newly identifi e d. Will get CT scan to look for splenic infarct. 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 He wants to be able to perform if her meets a new woma n and the opportun i ty presents itself. He wants to know if the medicine s used for ED are safe for him. He heard about alternat i ve therapie s like injectio n s and wants more informat i on about the treatmen t s availabl e . He denies a decrease in desire. Last Assessme n t & Plan : Newly identifi e d. I recommen d ed discussi n g the combinat i on of PD E medicati o n like Viagra with lloyd e of his cardiac medicine s like (Imdur) with his cardiolo g ist next week. If there ar e no contrain d ications I will prescrib e Viagra for the patient. Leg cramps Leg cramps Condition Active 2016-06-17 Overview: 06-17 13:58:18 He was 00:00: taking 00 Robaxin for this but his last PCP gave onl y one a da y when he had been on 3 times a day when he was a t a pain clinic. Last Assessme n t & Plan : Leg cramps are worsenin g Will increase the frequenc y of Robaxin if no improvem e nt will recheck debbie seo COPD COPD Condition Active 2016-12-15 Ove rview: (chronic (chronic 05-10 18:30:22 Diagn osed obstructive obstructive 00:00: 4 years pulmonary pulmonary 00 ago. He disease) disease) report s with with breathin g chronic chronic is bronchitis bronchitis st able. He reports occasion a l wheezing . He also has nebulize d albutero l and HFA. He rarel y uses the nebulize r . He use s the albutero l inhaler when he is very active like working in the yard. He uses it about 2 times a week. He has some nighttim e symptoms once a month. H e doesn't have a pulmonol o gist. H. e is smoking < less jose n one a da y Last Assessme n t & Plan : COPD is stable. Continue current manageme n t. Will order pulmonar y function test. CAP CAP Condition Active 2016-05-10 Ove rview: (community (community 05-05 08:52:05 W ent ED 7 acquired acquired 00:00: days a go pneumonia) pneumonia) 00 th shortnes s of breat h cough chest pain and left arm pain. He reports sick contacts (grandch i ldren). He was treated with Levaquin . He feels symptoms are improvin g . He still yeboah s some dyspnea with the weather is hot. Last Assessme n t & Plan : Improved . Continue current manageme n t with Levaquin Right knee Right knee Condition Active 2016-02-26 Last pain pain 02-25 16:06:43 Assessm en 00:00: t & Plan : 00 Chronic but slight increase in pain as well as some instabil i ty. He would benefit from kne e brace. Will get imaging next visit. Midline low Midline low Condition Active 2016-12-15 Last back pain back pain 02-25 18:30:29 Ass essmen without without 00:00: t & Plan : sciatica sciatica 00 Muscul osk eletal pain is currentl y controll e d per Patient reported pain score of 1/10 wit h absence of symptoms includin g Constant pain primaril y localize d to lower back and legs. Reflecti v e of treatmen t with Muscle relaxant s Continue current regimen and recommen d use of APAP ove r aspirin or NSAID s for addition a l pain relief t o reduce risks of bleeding . . Stressed complian c e to nova n regimen and sharon y treatmen t of symptoms to stay on top o f pain. Recommen d nonpharm a cologic therapy for pain manageme n t includin g ice & heat. S/P S/P Condition Active 2016-12-15 coronary coronary 01-25 18:30:53 artery artery 00:00: stent stent 00 placement placement Hyperlipide Hyperlipide Condition Active 2016-12-15 Last stu stu 9-10 18:30:25 Assessm en 00:00: t & Plan : 00 Statin benefit group of Clinical ASCVD indicate s need for high intensit y statin per ACC/AHA 2013 Choleste r ol Curtis tiwari Reflecti v e of appropri a te treatmen t with atorvast a tin 40 m g daily, a high intensit y statin. Given rishi pang with current stable dose in a setting where patient denies myalgias , Continue current regimen Recommen d ed physical activity and diet low in saturate d & trans fats. Type 2 Type 2 Condition Active 2016-08-19 Las t diabetes diabetes 07-16 11:46:35 Asses smen mellitus mellitus 00:00: t & Pl an: with with 00 Currentl y circulatory circulatory uncontrol disorder, disorder, led with with with A1c 7.8% long-term long-term in current use current use relation of insulin of insulin to goal A1c <7% per ADA curtis tiwari Reflecti v e of treatmen t with metformi n , sitaglip t in, glipizid e , and glargine . Of note, patient told to increase glargine to 55 units bu t reports taking 5 0 units. Given medicati o n compldameon pang with current stable dose and absence of hypoglyc e stu, Recommen d dose adjustme n t of glargine to 55 units daily as instruct e d. Continue other medicati o ns as prescrib e d. Reviewed signs an d symptoms of hypoglyc e stu and appropri a te treatmen t when blood glucose is <70. Recommen d routine blood glucose monitori n g 1-2 times a day and any time hypoglyc e stu is concern. Counsele d regardin g lifestyl e modifica t ions includin g 150 minutes of exercise per week and low carb diet. Patient agrees t o begin lo w carb t and exercise . Comprehe n sive car e for DM assessed and includes high intensit y statin (atorvas t atin 40 mg), aspirin 81mg and annual foot exam. Due for JULIAN/ARB (lisinop r il) and A1c. Recommen d followin g up with Dr. Titus. Last K+ WNL and microalb u minuria present. Tobacco use Tobacco use Condition Active 2016-12-15 Overview: disorder disorder 07-16 18:30:55 He is 00:00: taking 00 chantix which yeboah s helped a lot with smoking cessatio n . He smokes 1 cig a da y to get taste in the morning when walking the dog. This is before h e takes chantix he feels he will need to use the medicine for a while before h e can stop complete l y. Last Assessme n t & Plan : Currentl y in contempl a tion (quit plan in next 6 months) stage. Barriers to smoking cessatio n include: under a lot of stress now. Goa l is complete cessatio n of tobacco. Given patient is ready to quit smoking. Quit gamaliel e set for date he moves into new place; Recommen d continua t ion of nicotine lozenge and Chantix Recommen d ed the followin g nonpharm measures : removing cigarett e s and smoking material s from environm e nt and substitu t ion of other forms of reinforc e ment Educated patient on risks of smoking and provided smoking cessatio n counseli dorinda porras Will continue to asses s tobacco use at follow u p visits. CAD CAD Condition Active 2014-2016-12-15 Ove rview: (coronary (coronary 02-09 18:30:12 He had artery artery 00:00: stents disease) disease) [address] Martinez . He had 2 placed last 06/2016. He went back to ED last month with chest pain. He he a cat h and it showed a 90% stenosis of the PDA. He received a single JANIS and now has a residual 10% stenosis . He tolerate d the procedur e well. He had 1st stent placed when he was 46yo . He reports shortnes s of breat h is chronic due to COPD. He was doin g cardiac rehab prior to last hospital i zation but has not been sent viet k to resum e therapy. He denie s any ches t pain currentl y . Cardia c rehab wa s recommen d ed but h e can't afford i t at the time. Last Assessme n t & Plan : Clinical ASCVD (s/p [place])curre n tly appropri a tely treated with beta-blo c ker, statin, aspirin, anti-lakeisha t elet agent, ranolazi n e and nitrogly c sandro. Aspirin 81mg daily is appropri a te with absence of history of GI bleeding . Given ASCVD an d age <75, high intensit y statin indicate d . Of note, Effient not covered by insuranc e but patient is currentl y receivin g samples. History of intolera n ce to clopidog r el. Recommen d continui n g curren t therapy with beta-blo c ker, statin, aspirin, ranolazi n e and nitrogly c sandro as prescrib e d Indicati o n for JULIAN-inhi b itor but currentl y not prescrib e d. Patient had hyperkal e stu on therapy; lisinopr i l use to be readdres s ed after follow-u p labs Given medicati o n complian c e with current stable dose and absence of hypotens i on, Continue current regimen Will follow u p with provider if patient should continue carvedil o l or start atenolol . Counsele d regardin g increasi n g physical activity , starting a heart healthy diet & abstaini n g from tobacco Anemia Anemia Condition Resolve 2015-112017-01-02 d 0-14 00:00:00 00:00: 00 Type 2 Type 2 Condition Resolve 2017-01-02 diabetes diabetes d 7 00:00:00 mellitus mellitus 00:00: with with 00 neurologic neurologic complicatio complicatio n n Marriage Marriage Condition Resolve 2015-112016-10-28 separation separation d 0-06 00:00:00 00:00: 00 Acute Acute Condition Resolve 2016-06-17 coronary coronary d 7 00:00:00 syndromes syndromes 00:00: 00 Essential Essential Condition Resolve 2016-06-17 hypertensio hypertensio d 9-10 00:00:00 n, benign n, benign 00:00: 00 Procedures Procedure Date / Time Performed Performing Clinician Jaren pang CT ABDOMEN PELVIS W CONTRAST 2016-10-07 15:32:38 Martha Mojica POCT BUN/CREATININE 2016-10-07 15:27:00 Martha Mojica Results Test Description Test Time Test Comments Text Results Atomic Results Result Comments #[id number] 2016-10-07 CT Abdomen Pel vis W Contrast (10/07/2016 11:12:39 10:32 AM EST)SpecimenNarsolange vePerformed At PROCEDURE: CT ABDOMEN PELVIS W CONTRAST CLINICAL HISTORY:Pain, a nemia COMPARISON:None availabl e TECHNIQUE: 0.65 mm serial axial images were obtained with oral and IV contrast us ing multiplanar reconstructions. FINDINGS: M ild mosaic ground glass appearance to t he lungs, possible mild congestion whitley cintia pneumonitis. No focal consol idation or mass. Mild pleural thickenin g. Cardiomegaly with coronary calcifications .Very small hiatal hernia with mild esop hageal thickening. ABDOMEN: Fatty c hanges in liver and pancreas, no visible cintia picious masses or CT evidence of pancreatit is, correlate clinically. Mild perinephric stranding, no hydronephrosis or visible du e to calculi. Atherosclerotic changes in a rochelle and branches, no evidence of ane urysm. There is mild to moderate diffuse shana matous appearance proximal to mid s mall bowel, nonspecific; no visible foca l mass, pneumatosis, surrounding inf lammatory change, or free air. No bulk y elvira enlargement. Abdominal visce ra otherwise grossly unremarkable. PELVIS :There is reported history of appendec nancy, however there appears to be a small appendix versus appendiceal remnant arising from cecum. Colonic diverticula, no evid ence of diverticulitis.Moderate stool volume. Mild bladder thickening and distention, mildly bulky prostate.Mi ld degenerative changes and scoliosis. Bones and soft tissues otherwise grossly un remarkable. IMPRESSION:1. Mild to modera te nonspecific proximal to mid small bowel thickening; may represent hypoproteinemic st ate, versus chronic or acute on chronic IBD changes. No significant surrounding mese nteric inflammatory changes. Correl ate clinically. 2. Small appendix versus latosha endiceal remnant.Colonic divertic yusuf, no evidence of diverticulitis. Moderate stool volume may reflect constipat ion. 3. No hydronephrosis or calculi . Mild bladder distention and thickening, m ildly bulky prostate; correlate with uri nalysis and PSA levels, recommend elective u rologic follow-up. 4. Very small hia dl hernia with mild esophageal thickening, correlate for possible reflux esophagitis. Signed (Electronic Signature): 10/07 5:23 PMSigned By:JOANN KUMAR [facility] [place] RADProcedure NoteInterface, Rad Results In - 10/07/2016 5:25 PM EST PRO CEDURE: CT ABDOMEN PELVIS W CONTRAST CL INICAL HISTORY: Pain, anemia COMPARISON: Non e available TECHNIQUE: 0.65 mm serial ax ial images were obtained with oral and IV co ntrast using multiplanar reconstructions. FINDINGS: Mild mosaic ground glass appearan ce to the lungs, possible mild congest ion versus pneumonitis. No focal consol idation or mass. Mild pleural thickenin g. Cardiomegaly with coronary calcifications . Very small hiatal hernia with mild esop hageal thickening. ABDOMEN: Fatty c hanges in liver and pancreas, no visible cintia picious masses or CT evidence of pancreatit is, correlate clinically. Mild perinephric stranding, no hydronephrosis or visible du e to calculi. Atherosclerotic changes in a rochelle and branches, no evidence of ane urysm. There is mild to moderate diffuse shana matous appearance proximal to mid s mall bowel, nonspecific; no visible foca l mass, pneumatosis, surrounding inf lammatory change, or free air. No bulk y elvira enlargement. Abdominal visce ra otherwise grossly unremarkable. PELVIS : There is reported history of appendec nancy, however there appears to be a small appendix versus appendiceal remnant arising from cecum. Colonic diverticula, no evid ence of diverticulitis. Moderate sto ol volume. Mild bladder thickening and diste ntion, mildly bulky prostate. Mild degener ative changes and scoliosis. Bones and sof t tissues otherwise grossly unremarkab le. IMPRESSION: 1. Mild to moderate nonspeci fic proximal to mid small bowel thickening; may represent hypoproteinemic state, versu s chronic or acute on chronic IBD changes . No significant surrounding mese nteric inflammatory changes. Correl ate clinically. 2. Small appendix versus latosha endiceal remnant. Colonic diverticula , no evidence of diverticulitis. Moderate stool volume may reflect constipation. 3. No hydronephrosis or calculi . Mild bladder distention and thickening, m ildly bulky prostate; correlate with uri nalysis and PSA levels, recommend elective u rologic follow-up. 4. Very small hia dl hernia with mild esophageal thickening, correlate for possible reflux esophagitis. Signed (Electronic Signature): 10/07 5:23 PM Signed By: JOANN Peña [facility] OrganizationAddressCity/Stat e/ZipcodePhone Number[facility] [id number] [facility] [place] [address] #[id number] 2016-10-07 10:27:00 Test Item Value Reference Range Comments POC BUN (test code = POC BUN) 14.0 mg/dL 7.0- 22.0 mg/dL Creatinine, Whole Blood (test code = Creatinine, Whole 0.70 Blood) Advance Directives Directive Decision Effective Date Termination Date Comments Patient has advance directives. For N/A more information, please contact: [address] [address] Encounters Start End Encounter Admission Attending Care Care Encounter ID Date/Time Date/Time Type Type Clinicians Facility Department 2017-09-08 2017-09-08 Outpatient [facility] [id number] 00:00:00 00:00:00 [id number] 2017-06-29 2017-06-29 Outpatient [facility] [id number] 00:00:00 23:59:00 [id number] 2017-06-28 2017-06-28 Outpatient [facility] [id number] 11:11:38 12:11:13 [id number] 2017-06-21 2017-06-21 Outpatient [facility] [id number] 10:02:29 10:20:32 [id number] 2017-06-21 2017-06-21 Outpatient [facility] [id number] 00:00:00 00:00:00 [id number] 2017-05-10 2017-05-10 Outpatient [facility] [id number] 09:59:42 11:19:26 [id number] 2017-05-10 2017-05-10 Outpatient [facility] [id number] 00:00:00 00:00:00 [id number] 2017-03-29 2017-03-29 Outpatient [facility] [id number] 10:02:44 10:23:25 [id number] 2017-03-29 2017-03-29 Outpatient [facility] [id number] 00:00:00 00:00:00 [id number] 2017-03-27 2017-03-27 Ricardo MO[facility]ICA [facility] [id number] 10:48:00 18:11:00 MARTHA [id number] 2017-02-14 2017-02-14 Outpatient [facility] [id number] 00:00:00 00:00:00 [id number] 2017-02-03 2017-02-03 Outpatient [facility] [id number] 00:00:00 00:00:00 [id number] 2017-01-30 2017-01-30 Outpatient [facility] [id number] 10:03:51 10:29:42 [id number] 2017-01-30 2017-01-30 [facility] [id number] 00:00:00 00:00:00 [id number] 2017-01-02 2017-01-02 Outpatient [facility] [id number] 10:01:17 10:39:18 [id number] 2017-01-02 2017-01-02 Outpatient [facility] [id number] 00:00:00 00:00:00 [id number] 2016-12-29 2016-12-29 Outpatient [facility] [id number] 08:56:45 10:03:23 [id number] 2016-12-29 2016-12-29 Outpatient [facility] [id number] 00:00:00 00:00:00 [id number] 2016-12-09 2016-12-09 Outpatient [facility] [id number] 10:42:43 23:59:00 [id number] 2016-12-09 2016-12-09 Outpatient [facility] [id number] 00:00:00 00:00:00 [id number] 2016-10-28 2016-10-28 Outpatient [facility] [id number] 00:00:00 00:00:00 [id number] 2016-10-07 2016-10-07 Out[facility] [id number] 09:03:04 23:59:00 2016-10-07 2016-10-07 Outpatient [facility] [id number] 09:03:04 09:03:04 MARTHA [id number] 2016-10-04 2016-10-04 Outpatient [facility] [id number] 00:00:00 00:00:00 [id number] 2016-09-23 2016-09-23 Outpatient [facility] [id number] 00:00:00 00:00:00 [id number] 2016-09-09 2016-09-09 Outpatient EL SHIRIN [facility]ILL[facility] [id number] 00:00:00 00:00:00 [id number] 2016-08-30 2016-08-30 Outpatient DESTINEE ADKINS [id number] 08:44:01 23:59:00 [id number] 2016-08-26 2016-08-26 Outpatient [facility] [id number] 00:00:00 00:00:00 [id number] 2016-08-19 2016-08-20 B SHIRIN VANG [id number] 07:16:00 13:01:00 TRESSA [id number] 2016-06-23 2016-06-23 Outpatient MARIA LUZ MOSES [facility] [id number] 13:48:45 23:59:00 KINGSLEY [id number] 2016-06-17 2016-06-17 Outpatient [facility] [id number] 00:00:00 00:00:00 [id number] 2016-05-05 2016-05-05 Outpatient [facility] [id number] 00:00:00 00:00:00 [id number] 2016-03-25 2016-03-25 Outpatient [facility] [id number] 00:00:00 00:00:00 2016-01-14 2016-01-14 Outpatient MARIA LUZ JONES [facility] [id number] 11:54:16 11:54:16 NIVIA [id number] 2016-01-14 2016-01-14 Outpatient MARIA LUZ MOSES [facility] [id number] 10:54:12 11:43:43 KINGSLEY [id number] Immunizations Ordered Immunization Filled Immunization Date Status Commen ts Refusal Reason Name Name Influenza Vaccine Quad 2016-08-11 Completed (IIV4 PF) 6mo+ 00:00:00 injectable PNEUMOCOCCAL 2011-05-21 Completed POLYSACCHARIDE 23 00:00:00 Payers Payer Name Policy Type Policy Number Effective Date Expiration D ate MEDICARE PART A AND [id number] 2014 00:00:00 PART B MEDICAID [id number] 2016 00:00:00 Plan of Treatment Planned Activity Planned Date Details Comments Future Scheduled Test [code = ] Future Scheduled Test [code = ] Future Scheduled Test [code = ] Future Scheduled Test [code = ] Future Scheduled Test [code = ] Future Scheduled Test [code = ] Future Scheduled Test [code = ] Future Scheduled Test [code = ] Future Scheduled Test [code = ] Future Scheduled Test [code = ] Future Scheduled Test [code = ] Social History Social Habit Start Date Stop Date Comments Alcohol intake Tobacco smoking status NDIS 2016-10-04 00:00:00 2016-10-04 00:00 :00 Cigarettes smoked current (pack per 2016-10-04 00:00:00 00:00:00 day) - Reported Tobacco Comment 2016-09-22 00:00:00 2016-09-22 00:00:00 History of tobacco use 2016-08-04 00:00:00 Alcohol Comment 2015-07-16 00:00:00 2015-07-16 00:00:00 Vital Signs This patient has no known vital signs.
== END ==
LOC: OD 11:16
PROVIDERS: ATTEND Specialist
DX: I25.10 Atherosclerotic heart disease of native coronary artery without angina pectoris (principal); I10 Essential (primary) hypertension; R07.2 Precordial pain; R06.02 Shortness of breath; E11.9 Type 2 diabetes mellitus without complications; G47.33 Obstructive sleep apnea (adult) (pediatric); J44.9 Chronic obstructive pulmonary disease, unspecified; D64.9 Anemia, unspecified; R06.00 Dyspnea, unspecified; F17.219 Nicotine dependence, cigarettes, with unspecified nicotine-induced disorders; E78.5 Hyperlipidemia, unspecified; Z95.1 Presence of aortocoronary bypass graft; Z79.899 Other long term (current) drug therapy
CPT/HCPCS: 36415; 82607; 82728; 82746; 83540; 83550; 85025

== ENCOUNTER 2020-09-18 20:30 | Inpatient (IN) | payer MEDICARE, MEDICAID ==
[2020-09-18] MEDS ORDERED: NORMAL SALINE 250 ML IV PRN ×3 (21:25→21:27)
--- NOTE | 2020-09-18 21:52 | ER Document Report ---
ED General - General Chief Complaint: Anemia Stated Complaint: CHEST PAIN Notes: Patient is a 60-year-old male who comes emergency department for chief complaint of abnormal labs. 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 Mccloud, he was found to have hemoglobin less than 6, he was referred to the emergency department for transfusion and admission. Patient also states he has been having chest pains over the left side of his body and left arm although he states he is very familiar with this pain, he states he has this whenever his "blood gets too low". He states he has been evaluated by hematology, had negative colonoscopy, does not have any GI bleeding, states he was told his "bone marrow does not produce enough blood". He states he has had annual transf usions every year as long as he can remember. He also had a CABG in June of this year at [facility]. He is on baby aspirin but no other blood thinners. He denies any current symptoms, denies current chest pain, denies abdominal pain, denies dizziness or passing out. TRAVEL OUTSIDE OF THE [place] IN LAST 30 DAYS: No - Related Data Allergies/Adverse Reactions: clopidogrel [From Plavix] Allergy (Verified 04/02/20 13:10) coconut Allergy (Verified 04/02/20 13:10) hydrocodone [From Vicodin] Allergy (Verified 04/02/20 13:10) strawberry Allergy (Verified 04/02/20 13:10) Sulfa (Sulfonamide Antibiotics) Allergy (Verified 04/02/20 13:10) Past Medical History - General Information source: Patient - Social History Smoking Status: Current Every Day Smoker Frequency of alcohol use: Occasional Drug Abuse: Marijuana Lives with: Family Family History: CAD - Father and grandparents had CAD, Hypertension Patient has homicidal ideation: No - Past Medical History Cardiac Medical History: Reports: Hx Coronary Artery Disease, Hx Heart Attack - X4, 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, Hx Hypertension Pulmonary Medical History: Reports: Hx Bronchitis, Hx COPD, Hx Pneumonia Endocrine Medical History: Reports: Hx Diabetes Mellitus Type 1, Hx Diabetes Mellitus Type 2 Renal/ Medical History: Denies: Hx Peritoneal Dialysis Musculoskeletal Medical History: Reports Hx Arthritis Psychiatric Medical History: Denies: Hx Depression Past Surgical History: Reports: Hx Appendectomy, Hx Cardiac Catheterization - 11 stents, Hx Coronary Stent - x 11, Hx Orthopedic Surgery - carpal tunnel release right hand, Hx Tonsillectomy - Immunizations Hx Diphtheria, Pertussis, Tetanus Vaccination: Yes - 2017 Review of Systems - Review of Systems Constitutional: See HPI EENT: No symptoms reported Cardiovascular: See HPI Respiratory: No symptoms reported Gastrointestinal: No symptoms reported Genitourinary: No symptoms reported Male Genitourinary: No symptoms reported Musculoskeletal: No symptoms reported Skin: No symptoms reported Hematologic/Lymphatic: No symptoms reported Neurological/Psychological: No symptoms reported Physical Exam - Vital signs Vitals: Resp Pulse Ox 21 H 95 09/18/20 20:56 09/18/20 20:56 - Notes Notes: GENERAL: Alert, interacts well. No acute distress. HEAD: Normocephalic, atraumatic. EYES: Pupils equal, round, and reactive to light. Extraocular movements intact. ENT: Oral mucosa moist, tongue midline. Oropharynx unremarkable. Airway patent. NECK: Full range of motion. Supple. Trachea midline. No lymphadenopathy. LUNGS: Soft rales heard in bilateral lower lung blanc. Otherwise unremarkable. No respiratory distress. Speaks full sentences. HEART: Regular rate and rhythm. No murmur ABDOMEN: Soft, non-tender. Non-distended. Bowel sounds present in all 4 quadrants. GENITOURINARY: Deferred EXTREMITIES: Moves all 4 extremities spontaneously. No edema, normal radial and dorsalis pedis pulses bilaterally. No cyanosis. BACK: no cervical, thoracic, lumbar midline tenderness. No saddle anesthesia, normal distal neurovascular exam. Moves all extremities in full range of motion. NEUROLOGICAL: Alert and oriented x3. Normal speech. Cranial nerves II through XII grossly intact. Strength 5/5 in all extremities. PSYCH: Normal affect, normal mood. SKIN: Warm, dry, normal turgor. No rashes or lesions noted. Course - Re-evaluation Re-evalutation: I spoke with Dr. Mccloud who is currently in hospital. He would like 3 units of packed red blood cells transfused, would like records obtained from [facility] for recent CABG. He also wants cardiac work-up. On my evaluation patient does not have any chest pain, he has no concerning findings, he is curre ntly asymptomatic while sitting. CBC shows significant anemia at 5.4, microcytic. No leukocytosis. Troponin is not elevated. Chemistry nonspecific. Chest x-ray showing pulmonary vascular congestion. Patient does have rales on exam. Patient given 20 mg of Lasix. I called and discussed with Dr. Mccloud, he will accept patient to his service. Patient states appreciation and agreement. - Vital Signs Vital signs: Temp Pulse Resp BP Pulse Ox 98.1 F 18 114/54 L 95 09/19/20 02:21 09/19/20 02:21 09/19/20 02:21 09/19/20 02:21 - Laboratory Result Diagrams: 09/18/20 21:34 09/18/20 21:34 Laboratory results interpreted by me: 09/18/20 09/18/20 21:34 21:34 RBC 3.12 L Hgb 5.4 L Hct 19.0 L MCV 61 L MCH 17.4 L MCHC 28.5 L RDW 23.1 H Lymph % (Auto) 9.2 L Seg Neutrophils % 80.8 H Sodium 136.6 L Glucose 258 H AST 14 L Total Protein 6.0 L Albumin 3.4 L - EKG Interpretation by Me Additional EKG results interpreted by me: EKG shows sinus tachycardia at a rate of 101, QTc 472, normal axis, no T wave inversions or ST segment changes in consecutive leads Discharge - Discharge Clinical Impression: Symptomatic anemia Chest pain Qualifiers: Chest pain type: unspecified Qualified Code(s): R07.9 - Chest pain, unspecified Condition: Stable Disposition: ADMITTED INPATIENT Admitting Provider: Dr. Mccloud Unit Admitted: Telemetry
[2020-09-18 21:59] LABS: ABSOLUTE BASOPHILS # (AUTO) 0.1 10^3/uL (0.0-0.2); ABSOLUTE EOSINOPHILS # (AUTO) 0.1 10^3/uL (0.0-0.6); ABSOLUTE LYMPHOCYTES (AUTO) 0.7 10^3/uL (0.5-4.7); ABSOLUTE MONOCYTES (AUTO) 0.6 10^3/uL (0.1-1.4); ABSOLUTE NEUT (AUTO) 6.2 10^3/uL (1.7-8.2); EOSINOPHILS % (AUTO) 1.7 % (0-6); LYMPHOCYTES % (AUTO) 9.2 % (13-45); MEAN CORPUSCULAR HEMOGLOBIN 17.4 pg (27.0-33.4); MEAN CORPUSCULAR HGB CONC 28.5 g/dL (32.0-36.0); MEAN CORPUSCULAR VOLUME 61 fl (80-97); MONOCYTES % (AUTO) 7.3 % (3-13); PLATELET COUNT 431 10^3/uL (150-450); RED BLOOD COUNT 3.12 10^6/uL (4.35-5.55); RED CELL DISTRIBUTION WIDTH 23.1 % (11.5-14.0); SEGMENTED NEUTROPHILS % (AUTO) 80.8 % (42-78); TOTAL CELLS COUNTED % (AUTO) 100 %; WHITE BLOOD COUNT 7.7 10^3/uL (4.0-10.5)
[2020-09-18 22:16] LABS: ALBUMIN 3.4 g/dL (3.5-5.0); ALKALINE PHOSPHATASE 93 U/L (38-126); ANION GAP 8 (5-19); ASPARTATE AMINO TRANSFERASE 14 U/L (17-59); BILIRUBIN,TOTAL 0.2 mg/dL (0.2-1.3); BLOOD UREA NITROGEN 13 mg/dL (7-20); CARBON DIOXIDE 25 mmol/L (22-30); CHLORIDE 104 mmol/L (98-107); GLUCOSE 258 mg/dL (75-110); POTASSIUM 4.9 mmol/L (3.6-5.0)
--- NOTE | 2020-09-18 22:17 | RADIOLOGY REPORT (SQ) ---
EXAM DESCRIPTION: XR CHEST 1 VIEW COMPLETED DATE/TME: 09/18/2020 21:30 CLINICAL HISTORY: 60 years, Male, chest pain, shortness of breath COMPARISON: None. EXAM DESCRIPTION: CHEST SINGLE VIEW CLINICAL HISTORY: chest pain, shortness of breath COMPARISON: 04/20/2020 FINDINGS: Single view of the chest is submitted. There is slight pulmonary edema. Heart size is stable. Sternotomy wires are again seen. Mild atelectasis is at the lung bases. There is mild right lateral pleural thickening. No other focal parenchymal or pleural disease. There is pulmonary vascular engorgement. IMPRESSION: Mild pulmonary edema.
[2020-09-18 22:18] LABS: ANISOCYTOSIS 3+; HYPOCHROMASIA 3+; PLATELET COMMENT ADEQUATE
[2020-09-18 22:19] LABS: TARGET CELLS SLIGHT; TEAR DROP CELLS SLIGHT
[2020-09-18 22:20] LABS: OVALOCYTES SLIGHT
[2020-09-18 22:23] LABS: HEMOGLOBIN 5.4 g/dL (13.5-17.0)
[2020-09-18] MEDS ORDERED: FUROSEMIDE INJ/PF 20 MG/2 ML SDV IV ONE (23:00)
--- NOTE | 2020-09-19 00:27 | PDOC H&P ---
History of Present Illness Admission Date/PCP: 09/18/20 23:41 EUFEMIA VINCENT MD Patient complains of: The patient with known history of coronary artery disease prior history of SC and history of coronary bypass graft surgery in June 2020 states that he started having chest pains since a few days. He says the chest pain is in the front of the chest with radiation to the left shoulder and arm. He states this happens when his hemoglobin goes down. He has known history of anemia with iron deficiency and is able to predict that his hemoglobin is low. His outpatient hemoglobin was 6.0 and the patient was scheduled to have an outpatient blood transfusion. But the patient again called me saying he was having more chest pains and his repeat hemoglobin today was 5.7 and hence the patient was asked to come to the emergency room. The patient had some brief episode of chest pain which was relieved with Percocet. The patient does have anginal symptoms and also noncardiac chest pain. History of Present Illness: KRISTIAN QUIÑONEZ is a 60 year old male Past Medical History Cardiac Medical History: Reports: Coronary Artery Disease, Myocardial Infarction - X4, 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, Hypertension Pulmonary Medical History: Reports: Bronchitis, Chronic Obstructive Pulmonary Disease (COPD), Pneumonia Endocrine Medical History: Reports: Diabetes Mellitus Type 1, Diabetes Mellitus Type 2 Musculoskeltal Medical History: Reports: Arthritis Psychiatric Medical History: Denies: Depression Hematology: Reports: Anemia - RECENT IRON INFUSIONS Past Surgical History Past Surgical History: Reports: Appendectomy, Cardiac Catheterization - 11 stents, Coronary Stent - x 11, Orthopedic Surgery - carpal tunnel release right hand, Tonsillectomy Social History Smoking Status: Current Every Day Smoker Frequency of Alcohol Use: Rare Hx Recreational Drug Use: Yes Drugs: None - Advance Directive Resuscitation Status: Full Code Surrogate healthcare decision maker:: The patient's surrogate healthcare decision maker is his . Family History Family History: CAD - Father and grandparents had CAD, Hypertension Parental Family History Reviewed: Yes Children Family History Reviewed: Yes Sibling(s) Family History Reviewed.: Yes Medication/Allergy Home Medications: Atenolol 50 mg PO DAILY 02/21/18 Atorvastatin Calcium 80 mg PO QHS 02/21/18 Duloxetine HCl 60 mg PO Q12 02/21/18 Glipizide 10 mg PO DAILY 02/21/18 Metformin HCl 1,000 mg PO BID 02/21/18 Pantoprazole Sodium [Protonix] 40 mg PO Q6AM 02/21/18 Ranolazine [Ranexa 500 mg Tab.sr] 500 mg PO Q12 02/21/18 Tiotropium [place] [Spiriva Handihaler 18 mcg/dose (30 Dose)] 1 puff IH DAILY 02/21/18 Tizanidine HCl 4 mg PO Q8HP PRN 02/21/18 Trazodone HCl 100 mg PO QHS 02/21/18 Albuterol Sulfate [Albuterol Sulfate Hfa] 2 puff IH Q6HP PRN 06/09/19 Aspirin [Ecotrin 81 mg EC Tablet] 81 mg PO DAILY 06/09/19 Fluticasone Propionate [Flonase Nasal [place] 50 Mcg/[place] 16 gm] 1 spray NASL Q12 06/09/19 Gabapentin [Neurontin 300 mg Capsule] 900 mg PO Q6 06/09/19 Insulin Glargine,Hum.rec.anlog [Lantus Insulin 100 Unit/1 ml 10 ml] 60 unit SUBCUT QHS 06/09/19 Isosorbide Mononitrate [Imdur 30 mg Tablet.er] 90 mg PO DAILY 06/09/19 Fluticasone/Vilanterol [Breo 100-25 Mcg Ellipta 14 Dose/Dpi] 1 puff IH DAILY 04/21/20 Metoprolol Tartrate [Lopressor 25 mg Tablet] 12.5 mg PO Q12 09/19/20 Oxycodone HCl/Acetaminophen [Percocet 5-325 mg Tablet] 1 tab PO Q8HP PRN Allergies/Adverse Reactions: clopidogrel [From Plavix] Allergy (Verified 04/02/20 13:10) coconut Allergy (Verified 04/02/20 13:10) hydrocodone [From Vicodin] Allergy (Verified 04/02/20 13:10) strawberry Allergy (Verified 04/02/20 13:10) Sulfa (Sulfonamide Antibiotics) Allergy (Verified 04/02/20 13:10) Physical Exam Vital Signs: Temp Pulse Resp BP Pulse Ox 20 127/67 H 98 09/18/20 23:12 09/18/20 23:12 09/18/20 23:12 Intake & Output 09/17/20 09/18/20 09/19/20 06:59 06:59 06:59 Weight 88.904 kg General appearance: PRESENT: no acute distress, well-developed, well-nourished Head exam: PRESENT: atraumatic, normocephalic Eye exam: PRESENT: PERRLA, other - There is conjunctival pallor. There is no scleral icterus. Extraocular movements are normal. Ear exam: PRESENT: TM's normal bilaterally, other - External auditory canals are clear. Mouth exam: PRESENT: other - Mucous membranes of mouth and tongue are moist. There is no bleeding from the gums. Teeth exam: PRESENT: other - Dentition normal there is no gingivitis of the gums. Throat exam: PRESENT: other - There is no redness of the oropharynx. There is no exudates in the throat. Neck exam: PRESENT: other - Neck is supple. There is no JVD. Carotids are equal there is no bruit. There is no lymphadenopathy. There is no goiter. Carotids are equal there is no bruits. Respiratory exam: PRESENT: other - There is diminished air entry and prolonged expiration on auscultation. There is no rhonchi rales or wheezing. On percussion there is hyperresonance. Cardiovascular exam: PRESENT: other - S1-S2 is heard. There is no S3 gallop. There is no S4 gallop. Systolic murmur left sternal border and the apex there is no rub. Vascular exam: PRESENT: normal capillary refill GI/Abdominal exam: PRESENT: other - Abdomen is soft. There is no hepatosplenomegaly. Bowel sounds are well heard. There is no tender areas masses. Rectal exam: PRESENT: deferred Extremities exam: PRESENT: other - Femorals are well felt. There is no femoral bruits. Leg pulses are well felt. There is no cyanosis or clubbing. There is no pedal edema. There is no DVT or cellulitis. Neurological exam: PRESENT: alert, awake, oriented to person, oriented to place, oriented to time, CN II-XII grossly intact, other - There is no sensory or motor deficits. Focused psych exam: PRESENT: other - The patient judgment insight are intact his affect is normal. Results Laboratory Results: 09/18/20 21:34 09/18/20 21:34 09/18/20 09/18/20 21:34 21:34 WBC 7.7 RBC 3.12 L Hgb 5.4 L Hct 19.0 L MCV 61 L MCH 17.4 L MCHC 28.5 L RDW 23.1 H Plt Count 431 Seg Neutrophils % 80.8 H Sodium 136.6 L Potassium 4.9 Chloride 104 Carbon Dioxide 25 Anion Gap 8 BUN 13 Creatinine 0.73 Est GFR ( Amer) > 60 Glucose 258 H Calcium 9.0 Total Bilirubin 0.2 AST 14 L Alkaline Phosphatase 93 Total Protein 6.0 L Albumin 3.4 L 09/18/20 21:34 Troponin I < 0.012 EKG Comments: Sinus tachycardia. No acute changes. Impressions: Chest X-Ray 09/18/20 21:18 IMPRESSION: Mild pulmonary edema. Assessment & Plan - Diagnosis (1) Old myocardial infarction Is this a current diagnosis for this admission?: Yes Plan: Continue patient is anti-CAD medication. (2) Symptomatic anemia Plan: We will transfuse the patient to keep the hemoglobin 10 or above. (3) Anemia Qualifiers: Anemia type: iron deficiency Iron deficiency anemia type: unspecified iron deficiency Qualified Code(s): D50.9 - Iron deficiency anemia, unspecified Is this a current diagnosis for this admission?: Yes Plan: The patient has a history of chronic cryptogenic iron deficiency anemia. He has had an extensive GI work-up including endoscopy 7 also capsule endoscopies but no source of GI bleed has been found. He also states that he does not absorb oral iron and periodically gets iron transfusions and if needed at times blood transfusions as an outpatient. (4) COPD (chronic obstructive pulmonary disease) Qualifiers: COPD type: unspecified COPD Qualified Code(s): J44.9 - Chronic obstructive pulmonary disease, unspecified Plan: This is stable without any symptoms of acute exacerbation. The patient continues to smoke. (5) Coronary artery disease Qualifiers: Coronary Disease-Associated Artery/Lesion type: [place] artery [place] vs. transplanted heart: benton heart Is this a current diagnosis for this admission?: Yes Plan: Some of his pain seems anginal and some more noncardiac. It seems that the hemoglobin of 5.7 is the cause of the patient's angina since there is no acute changes on the EKG and his initial troponin is negative. There is no evidence of unstable angina at present. (6) Essential hypertension Is this a current diagnosis for this admission?: Yes Plan: Blood pressure stable on current medication. (7) GERD (gastroesophageal reflux disease) Qualifiers: Esophagitis presence: without esophagitis Qualified Code(s): K21.9 - Gastro-esophageal reflux disease without esophagitis Is this a current diagnosis for this admission?: No (8) Iron deficiency anemia Qualifiers: Is this a current diagnosis for this admission?: Yes Plan: Plan as mentioned above. Since the patient getting blood transfusion now we will recheck the patient's iron in about 2 to 3 weeks to see if the patient needs iron infusion. (9) Tobacco abuse Is this a current diagnosis for this admission?: Yes (10) Coronary bypass graft surgery status Is this a current diagnosis for this admission?: Yes Plan: We will get the patient's coronary bypass graft surgery report from [facility]. Addendum the patient's surgery report was obtained from [facility]. The patient had a KNOX to the LAD and a radial graft which was sequentially placed to the obtuse marginal branch and the PDA. (11) Angina pectoris Is this a current diagnosis for this admission?: Yes Plan: This is due to low hemoglobin. (12) Hyperlipidemia Qualifiers: Hyperlipidemia type: other hyperlipidemia Qualified Code(s): E78.49 - Other hyperlipidemia; E78.4 - Other hyperlipidemia Is this a current diagnosis for this admission?: Yes Plan: Continue statins. - Time Time Spent: 50 to 70 Minutes Smoking Cessation Education: 3 to 10 minutes Medications reviewed and adjusted accordingly: Yes Anticipated Discharge Disposition: Home, Self Care Anticipated Discharge Timeframe: within 48 hours - Inpatient Certification Based on my medical assessment, after consideration of the patient's comorbidities, presenting symptoms, or acuity I expect that the services needed warrant INPATIENT care.: Yes I certify that my determination is in accordance with my understanding of Medicare's requirements for reasonable and necessary INPATIENT services [42 CFR 412.3e].: Yes Medical Necessity: Significant Comorbidiites Make Outpatient Treatment Too Risky, Need Close Monitoring Due to Risk of Patient Decompensation, Need For IV Fluids, Need For Continuous Telemetry Monitoring - Plan Summary Plan Summary: We will transfuse the patient to keep the hemoglobin 10 or above. We will recheck the patient's EKG in the morning. Also get troponins in the morning. We will start so check his lipids.
[2020-09-19] MEDS ORDERED: ACETAMINOPHEN 325 MG TABLET PO PRN (02:30)
--- NOTE | 2020-09-19 09:43 | EKG REPORT ---
SEVERITY:- OTHERWISE NORMAL ECG - SINUS TACHYCARDIA MONOR NONSPECIFIC ST-T CHANGES : Confirmed by: Yareli Ellington 19-Sep-2020 09:43:01
[2020-09-19] MEDS: DIPHENHYDRAMINE HCL 25 MG CAPSULE PO PRN ×2 (10:38→16:20)
[2020-09-19] MEDS ORDERED: FUROSEMIDE INJ/PF 20 MG/2 ML SDV IV PRN (11:48)
[2020-09-19] MEDS ORDERED: ALBUTEROL SULFATE HFA (90 MCG/PUFF) 8 GM MDI (1 MDI/ER DISP) IH PRN (18:49)
[2020-09-19] MEDS ORDERED: OXYCODONE-ACETAMINOPHEN 5-325 MG TABLET PO PRN (18:49)
[2020-09-19] MEDS ORDERED: TIZANIDINE HCL 4 MG TABLET PO PRN (18:49)
--- NOTE | 2020-09-19 18:54 | PDOC DISCHARGE SUMMARY ---
Impression - Admit/DC Date/PCP Admission Date/Primary Care Provider: 09/18/20 23:41 EUFEMIA VINCENT MD Discharge Date: 09/19/20 - Discharge Diagnosis (1) Old myocardial infarction Is this a current diagnosis for this admission?: Yes (2) Symptomatic anemia Is this a current diagnosis for this admission?: Yes (3) Anemia Is this a current diagnosis for this admission?: Yes (4) COPD (chronic obstructive pulmonary disease) Is this a current diagnosis for this admission?: Yes (5) Coronary artery disease Is this a current diagnosis for this admission?: Yes (6) Essential hypertension Is this a current diagnosis for this admission?: Yes (7) GERD (gastroesophageal reflux disease) Is this a current diagnosis for this admission?: No (8) Iron deficiency anemia Is this a current diagnosis for this admission?: Yes (9) Tobacco abuse Is this a current diagnosis for this admission?: Yes (10) Coronary bypass graft surgery status Is this a current diagnosis for this admission?: Yes (11) Angina pectoris Is this a current diagnosis for this admission?: Yes (12) Hyperlipidemia Is this a current diagnosis for this admission?: Yes - Additional Information Resuscitation Status: Full Code Referrals: EUFEMIA VINCENT MD [Primary Care Provider] - Follow up as needed Home Medications: Atenolol 50 mg PO DAILY 02/21/18 Atorvastatin Calcium 80 mg PO QHS 02/21/18 Duloxetine HCl 60 mg PO Q12 02/21/18 Glipizide 10 mg PO DAILY 02/21/18 Metformin HCl 1,000 mg PO BID 02/21/18 Pantoprazole Sodium [Protonix] 40 mg PO Q6AM 02/21/18 Ranolazine [Ranexa 500 mg Tab.sr] 500 mg PO Q12 02/21/18 Tiotropium [place] [Spiriva Handihaler 18 mcg/dose (30 Dose)] 1 puff IH DAILY 02/21/18 Tizanidine HCl 4 mg PO Q8HP PRN 02/21/18 Trazodone HCl 100 mg PO QHS 02/21/18 Albuterol Sulfate [Albuterol Sulfate Hfa] 2 puff IH Q6HP PRN 06/09/19 Aspirin [Ecotrin 81 mg EC Tablet] 81 mg PO DAILY 06/09/19 Fluticasone Propionate [Flonase Nasal [place] 50 Mcg/[place] 16 gm] 1 spray NASL Q12 06/09/19 Gabapentin [Neurontin 300 mg Capsule] 900 mg PO Q6 06/09/19 Insulin Glargine,Hum.rec.anlog [Lantus Insulin 100 Unit/1 ml 10 ml] 60 unit SUBCUT QHS 06/09/19 Isosorbide Mononitrate [Imdur 30 mg Tablet.er] 90 mg PO DAILY 06/09/19 Fluticasone/Vilanterol [Breo 100-25 Mcg Ellipta 14 Dose/Dpi] 1 puff IH DAILY 04/21/20 Metoprolol Tartrate [Lopressor 25 mg Tablet] 12.5 mg PO Q12 09/19/20 Oxycodone HCl/Acetaminophen [Percocet 5-325 mg Tablet] 1 tab PO Q8HP PRN 09/19/20 History of Present Illiness History of Present Illness: KRISTIAN QUIÑONEZ is a 60 year old male Hospital Course Hospital Course: The patient initially had some chest pain which was most musculoskeletal than anginal. This was relieved in the emergency room with Percocet. The patient has been having symptoms of chest pain some of which could be anginal due to his anemia. But in the hospital the patient did not have any bouts of angina. He remained stable and he was given 3 units of packed RBCs with the Lasix 20 mg in travenous between units and the patient's hemoglobin came up to 9.3. The patient requested discharge. Will recheck the patient's hemoglobin in about a week and treat transfuse if necessary. The patient will be followed up in the office. The patient in the hospital admission had no evidence of unstable angina or congestive heart failure. There were no acute exacerbation of COPD. Physical Exam Vital Signs: Temp Pulse Resp BP Pulse Ox 97.6 F 88 18 138/68 H 99 09/19/20 16:42 09/19/20 16:42 09/19/20 16:42 09/19/20 16:42 09/19/20 16:42 Intake & Output 09/18/20 09/19/20 09/20/20 06:59 06:59 06:59 Intake Total 94 750 Balance 94 750 Weight 77.4 kg General appearance: PRESENT: no acute distress, other - Is well-built and well- nourished in no acute distress. Head exam: PRESENT: atraumatic, normocephalic Eye exam: PRESENT: EOMI, PERRLA, other - The patient is initial examination showed that the conjunctiva was pale. But subsequently after blood transfusion consent conjunctiva was pink. There was no scleral icterus. Ear exam: PRESENT: normal external ear exam, TM's normal bilaterally Mouth exam: PRESENT: moist, tongue midline Throat exam: PRESENT: other - There was no erythema in the throat. There was no exudates. Neck exam: PRESENT: other - Neck is supple. There is no JVD. Carotids are equal without any bruits. There is no lymphadenopathy. There is no goiter. Respiratory exam: PRESENT: other - There is no accessory muscles of respiration use. Trachea was midline. Lungs showed slightly diminished air entry prolonged expiration without any rhonchi rales or wheezing. Cardiovascular exam: PRESENT: other - Sinus rhythm. S1-S2 was heard normal. S1 was normal intensity. There was no S3 gallop. There is no S4 gallop. There is systolic murmur the left sternal border and the apex. There is no rub. Pulses: PRESENT: normal carotid pulses, normal radial pulses, normal femoral pulses, normal dorsalis pedis pul GI/Abdominal exam: PRESENT: other - Abdomen is soft and there was no hepatos plenomegaly. Bowel sounds are well heard. There is no tender areas masses. There is no rebound guarding or rigidity. Rectal exam: PRESENT: deferred Extremities exam: PRESENT: other - Femorals were well felt. There is no femoral bruits. Leg pulses well felt. There is no pedal edema. There is no DVT or cellulitis. There is no cyanosis or clubbing Musculoskeletal exam: PRESENT: ambulatory, full ROM, normal inspection Neurological exam: PRESENT: other - The patient is awake alert oriented x3 with no focal deficits. There is no sensory or motor deficits. Focused psych exam: PRESENT: other - The patient judgment insight were intact his affect is normal. Skin exam: PRESENT: other - Skin was warm. There was no petechia or ecchymosis. There is no skin lesions or skin rashes. Results Laboratory Results: WBC 7.7 10^3/uL (4.0-10.5) 09/18/20 21:34 RBC 3.12 10^6/uL (4.35-5.55) L 09/18/20 21:34 Hgb 5.4 g/dL (13.5-17.0) L 09/18/20 21:34 Hct 19.0 % (37.9-51.0) L 09/18/20 21:34 MCV 61 fl (80-97) L 09/18/20 21:34 MCH 17.4 pg (27.0-33.4) L 09/18/20 21:34 MCHC 28.5 g/dL (32.0-36.0) L 09/18/20 21:34 RDW 23.1 % (11.5-14.0) H 09/18/20 21:34 Plt Count 431 10^3/uL (150-450) 09/18/20 21:34 Lymph % (Auto) 9.2 % (13-45) L 09/18/20 21:34 [place] % (Auto) 7.3 % (3-13) 09/18/20 21:34 Eos % (Auto) 1.7 % (0-6) 09/18/20 21:34 Baso % (Auto) 1.0 % (0-2) 09/18/20 21:34 Absolute Neuts (auto) 6.2 10^3/uL (1.7-8.2) 09/18/20 21:34 Absolute Lymphs (auto) 0.7 10^3/uL (0.5-4.7) 09/18/20 21:34 Absolute Monos (auto) 0.6 10^3/uL (0.1-1.4) 09/18/20 21:34 Absolute Eos (auto) 0.1 10^3/uL (0.0-0.6) 09/18/20 21:34 Absolute Basos (auto) 0.1 10^3/uL (0.0-0.2) 09/18/20 21:34 Seg Neutrophils % 80.8 % (42-78) H 09/18/20 21:34 Platelet Comment ADEQUATE 09/18/20 21:34 Hypochromasia 3+ 09/18/20 21:34 Anisocytosis 3+ 09/18/20 21:34 Microcytosis 3+ 09/18/20 21:34 Target Cells SLIGHT 09/18/20 21:34 Tear Drop Cells SLIGHT 09/18/20 21:34 Ovalocytes SLIGHT 09/18/20 21:34 Sodium 136.6 mmol/L (137-145) L 09/18/20 21:34 Potassium 4.9 mmol/L (3.6-5.0) 09/18/20 21:34 Chloride 104 mmol/L (98-107) 09/18/20 21:34 Carbon Dioxide 25 mmol/L (22-30) 09/18/20 21:34 Anion Gap 8 (5-19) 09/18/20 21:34 BUN 13 mg/dL (7-20) 09/18/20 21:34 Creatinine 0.73 mg/dL (0.52-1.25) 09/18/20 21:34 Est GFR ( Amer) > 60 (>60) 09/18/20 21:34 Est GFR (MDRD) Non-Af > 60 (>60) 09/18/20 21:34 Glucose 258 mg/dL (75-110) H 09/18/20 21:34 Calcium 9.0 mg/dL (8.4-10.2) 09/18/20 21:34 Total Bilirubin 0.2 mg/dL (0.2-1.3) 09/18/20 21:34 Direct Bilirubin 0.0 mg/dL (0.0-0.4) 09/18/20 21:34 Neonat Total Bilirubin Not Reportable 09/18/20 21:34 Neonat Direct Bilirubin Not Reportable 09/18/20 21:34 Neonat Indirect Bili Not Reportable 09/18/20 21:34 AST 14 U/L (17-59) L 09/18/20 21:34 ALT 12 U/L (<50) 09/18/20 21:34 Alkaline Phosphatase 93 U/L (38-126) 09/18/20 21:34 Troponin I < 0.012 ng/mL 09/18/20 21:34 Total Protein 6.0 g/dL (6.3-8.2) L 09/18/20 21:34 Albumin 3.4 g/dL (3.5-5.0) L 09/18/20 21:34 Blood Type O NEGATIVE 09/19/20 06:51 Antibody Screen NEGATIVE 09/19/20 06:51 Crossmatch See Detail 09/19/20 06:51 09/18/20 21:34 Troponin I < 0.012 EKG Comments: Patient is EKG shows sinus tachycardia without any acute changes. Impressions: Chest X-Ray 09/18/20 21:18 IMPRESSION: Mild pulmonary edema. Plan Health Concerns: The patient with coronary artery disease who continues to smoke. He also has COPD. He also has intermittent significant anemia and patient is unable to take oral iron. The patient will be counseled to stop smoking. We will need tight control of his lipid status. Patient strongly advised to stop smoking. We will continue to watch the patient carefully. We will check the patient's hemoglobin in a week and if this is within normal limits we will check the patient's iron to see if the patient needs iron transfusion. All of the above were discussed with the patient in detail. The patient needs to make significant life style modification.. This was strongly advised to the patient. Plan of Treatment: The plan is to recheck the patient's hemoglobin in a week and if below 10 we will transfuse him. If the hemoglobin is normal and until the hemoglobin come back to 10 or above we will recheck the patient's iron to see if the patient needs iron transfusion. We will continue his anti-CAD medications. The patient's lipid status will be closely monitored. We will continue the patient's statin. Continue aspirin for now. The patient has been counseled to stop smoking. We will follow the patient closely as an outpatient in the office. Time Spent: Greater than 30 Minutes Stroke Is this a Stroke Patient?: No Acute Heart Failure Is this a Heart Failure Patient?: No
[2020-09-19] MEDS ORDERED: INSULIN GLARGINE,HUM.REC.ANLOG 1,000 UNIT/10 ML VIAL SUBCUT SCH (22:00)
[2020-09-19] MEDS ORDERED: METOPROLOL TARTRATE 25 MG TABLET PO SCH (22:00)
[2020-09-19] MEDS ORDERED: TRAZODONE HCL 50 MG TABLET PO SCH (22:00)
[2020-09-19] MEDS ORDERED: RANOLAZINE 500 MG TAB.SR.12H PO SCH (22:00)
[2020-09-19] MEDS ORDERED: DULOXETINE HCL 30 MG CAPSULE.DR PO SCH (22:00)
[2020-09-19] MEDS ORDERED: FLUTICASONE NASAL SPRAY 50 MCG/SPRY 120 SPRAY/16 GM NASL SCH (22:00)
[2020-09-19] MEDS ORDERED: ATORVASTATIN CALCIUM 80 MG TABLET PO SCH (22:00)
[2020-09-19 22:05] LABS: HEMATOCRIT 29.1 % (37.9-51.0); MEAN CORPUSCULAR HEMOGLOBIN 21.5 pg (27.0-33.4); MEAN CORPUSCULAR HGB CONC 31.7 g/dL (32.0-36.0); PLATELET COUNT 391 10^3/uL (150-450); RED CELL DISTRIBUTION WIDTH 29.4 % (11.5-14.0); WHITE BLOOD COUNT 6.8 10^3/uL (4.0-10.5)
[2020-09-19 22:29] LABS: HEMOGLOBIN 9.3 g/dL (13.5-17.0); MEAN CORPUSCULAR VOLUME 68 fl (80-97)
[2020-09-19 22:49] VITALS: BP 139/68
[2020-09-20] MEDS ORDERED: GABAPENTIN 300 MG CAPSULE PO SCH
[2020-09-20] MEDS ORDERED: PANTOPRAZOLE SODIUM 40 MG PACKET.DR PO SCH (06:00)
[2020-09-20] MEDS ORDERED: UMECLIDINIUM BROMIDE 62.5 MCG/DOSE IH SCH (10:00)
[2020-09-20] MEDS ORDERED: FLUTICASONE/VILANTEROL 100-25 MCG/DOSE IH SCH (10:00)
[2020-09-20] MEDS ORDERED: ASPIRIN 81 MG TABLET, ENT COATED PO SCH (10:00)
[2020-09-20] MEDS ORDERED: GLIPIZIDE 10 MG TABLET PO SCH (10:00)
[2020-09-20] MEDS ORDERED: ATENOLOL 50 MG TABLET PO SCH (10:00)
[2020-09-20] MEDS ORDERED: METFORMIN HCL 500 MG TABLET PO SCH (10:00)
[2020-09-20] MEDS ORDERED: ISOSORBIDE MONONITRATE 30 MG TAB.ER.24H PO SCH (10:00)
== END 2020-09-19 22:48 | disposition home or self-care (01) | DRG 812 ==
LOC: ER 20:30 → EH 23:41 → 4S 09-19 02:19
PROVIDERS: ADMIT Specialist; ATTEND Specialist
PROC: 30233N1 Transfusion of Nonautologous Red Blood Cells into Peripheral Vein, Percutaneous Approach (ICD-10-PCS; principal; 2020-09-18)
PROC: 30233N1 Transfusion of Nonautologous Red Blood Cells into Peripheral Vein, Percutaneous Approach (ICD-10-PCS; 2020-09-19)
DX: D50.9 Iron deficiency anemia, unspecified (principal); J44.9 Chronic obstructive pulmonary disease, unspecified; E11.9 Type 2 diabetes mellitus without complications; M19.90 Unspecified osteoarthritis, unspecified site; I25.2 Old myocardial infarction; Z95.1 Presence of aortocoronary bypass graft; Z95.5 Presence of coronary angioplasty implant and graft; I25.119 Atherosclerotic heart disease of native coronary artery with unspecified angina pectoris; F17.200 Nicotine dependence, unspecified, uncomplicated; I10 Essential (primary) hypertension; K21.9 Gastro-esophageal reflux disease without esophagitis; E78.5 Hyperlipidemia, unspecified; R07.89 Other chest pain; Z90.49 Acquired absence of other specified parts of digestive tract; Z82.49 Family history of ischemic heart disease and other diseases of the circulatory system; Z79.899 Other long term (current) drug therapy; Z79.82 Long term (current) use of aspirin; Z79.4 Long term (current) use of insulin; Z88.2 Allergy status to sulfonamides; Z88.8 Allergy status to other drugs, medicaments and biological substances; Z91.018 Allergy to other foods; Z88.6 Allergy status to analgesic agent
CPT/HCPCS: 36415; 36430; 71045; 80053; 84484; 85025; 85027; 86850; 86900; 86901; 86920; 93005; 93010; 96374; 99285; J1940; J3490; J7050; P9016

== ENCOUNTER → 2020-09-29 | Outpatient (CLI) | payer MEDICARE, MEDICAID ==
[2020-09-29 14:02] LABS: ABSOLUTE BASOPHILS # (AUTO) 0.1 10^3/uL (0.0-0.2); ABSOLUTE EOSINOPHILS # (AUTO) 0.2 10^3/uL (0.0-0.6); ABSOLUTE LYMPHOCYTES (AUTO) 1.3 10^3/uL (0.5-4.7); ABSOLUTE MONOCYTES (AUTO) 0.7 10^3/uL (0.1-1.4); BASOPHILS % (AUTO) 1.3 % (0-2); EOSINOPHILS % (AUTO) 2.5 % (0-6); HEMATOCRIT 29.7 % (37.9-51.0); HEMOGLOBIN 9.1 g/dL (13.5-17.0); LYMPHOCYTES % (AUTO) 17.6 % (13-45); MEAN CORPUSCULAR HEMOGLOBIN 20.8 pg (27.0-33.4); MEAN CORPUSCULAR HGB CONC 30.8 g/dL (32.0-36.0); MEAN CORPUSCULAR VOLUME 68 fl (80-97); MONOCYTES % (AUTO) 9.6 % (3-13); PLATELET COUNT 608 10^3/uL (150-450); RED BLOOD COUNT 4.39 10^6/uL (4.35-5.55); RED CELL DISTRIBUTION WIDTH 29.9 % (11.5-14.0); TOTAL CELLS COUNTED % (AUTO) 100 %; WHITE BLOOD COUNT 7.2 10^3/uL (4.0-10.5)
[2020-09-29 14:28] LABS: TOXIC GRANULATION SLIGHT
[2020-09-29 14:29] LABS: ANISOCYTOSIS 4+; HYPOCHROMASIA 1+; OVALOCYTES SLIGHT; PLATELET COMMENT INCREASED; PLATELET LARGE PRESENT; POIKILOCYTOSIS 1+; SCHISTOCYTES SLIGHT
== END ==
LOC: OD 13:16
PROVIDERS: ATTEND Specialist
DX: I25.118 Atherosclerotic heart disease of native coronary artery with other forms of angina pectoris (principal); I10 Essential (primary) hypertension; R07.2 Precordial pain; R06.02 Shortness of breath; E11.9 Type 2 diabetes mellitus without complications; G47.33 Obstructive sleep apnea (adult) (pediatric); J44.9 Chronic obstructive pulmonary disease, unspecified; D64.9 Anemia, unspecified; R06.00 Dyspnea, unspecified; F17.219 Nicotine dependence, cigarettes, with unspecified nicotine-induced disorders; Z95.1 Presence of aortocoronary bypass graft; Z79.899 Other long term (current) drug therapy
CPT/HCPCS: 36415; 85025